=== PATIENT | male | born 1960 | race Caucasian/White ===

== ENCOUNTER 2017-12-17 17:06 | Emergency (ER) | payer OTHER ==
[2017-12-17] MEDS ORDERED: IBUPROFEN 400 MG TAB ONE (18:22)
[2017-12-17] MEDS ORDERED: ACETAMINOPHEN 500 MG TAB ONE (18:33)
--- NOTE | 2017-12-17 19:25 | ER ---
Nurse's Notes [facility] Name: Byron Albetro Jr Age: 57 yrs Sex: Male : 1960 Arrival Date: 12/17/2017 Time: 17:11 Bed 12 Private MD: Diagnosis: Cellulitis of toe-Left Third Presentation: 12/17 17:30 Presenting complaint: Patient states: Nail infection/fungus on left 3rd toe that aj started 2 months ago. Transition of care: patient was not received from another setting of care. Onset of symptoms was October 2017. Initial Sepsis Screen: Does the patient meet any 2 criteria? No. Patient's initial sepsis screen is negative. Does the patient have a suspected source of infection? No. Patient's initial sepsis screen is negative. Care prior to arrival: None. 17:30 Method Of Arrival: Ambulatory aj 17:30 Acuity: RENNY 3 aj Triage Assessment: 17:33 General: Appears in no apparent distress. comfortable, Behavior is calm, cooperative, aj appropriate for age. Pain: Complains of pain in left third toe and Left third toenail. Neuro: Level of Consciousness is awake, alert, obeys commands, Oriented to person, place, time, situation, Appropriate for age. Respiratory: Airway is patent Respiratory effort is even, unlabored, Respiratory pattern is regular, symmetrical. Derm: Skin is intact, is healthy with good turgor, Skin is pink, warm \T\ dry. normal, Wound noted left third toe and Left third toenail. Historical: - Allergies: 17:33 No Known Allergies; aj - Home Meds: 17:33 Klonopin Oral [Active]; Zoloft Oral [Active]; odesfey [Active]; Promethazine Oral aj [Active]; Propranolol Oral [Active]; Remeron Oral [Active]; Tylenol-Codeine #4 300-60 mg Oral tab 1 tab every 4 hours [Active]; - PMHx: 17:33 HIV; aj - PSHx: 17:33 None; aj - Immunization history:: Adult Immunizations up to date. - Social history:: Smoking status: Patient uses tobacco products, smokes one-half pack cigarettes per day. Screenin:53 Abuse screen: Denies threats or abuse. Denies injuries from another. Nutritional ed1 screening: No deficits noted. Tuberculosis screening: No symptoms or risk factors identified. Fall Risk None identified. Assessment: 17:53 General: Appears in no apparent distress. Behavior is calm, cooperative. Pain: ed1 Complains of pain in left third toe Pain radiates to left foot Pain currently is 6 out of 10 on a pain scale. Quality of pain is described as aching, Pain began 2 months ago Is continuous. Neuro: Level of Consciousness is awake, alert, obeys commands, Oriented to person, place, time, situation. Cardiovascular: Denies chest pain, Heart tones S1 S2 present. Respiratory: Airway is patent Trachea midline Respiratory effort is even, unlabored, Respiratory pattern is regular, symmetrical, Breath sounds are clear bilaterally. GI: No signs and/or symptoms were reported involving the gastrointestinal system. : No signs and/or symptoms were reported regarding the genitourinary system. EENT: No signs and/or symptoms were reported regarding the EENT system. Derm: Skin is intact, is healthy with good turgor, Skin is dry, Skin is normal, Skin temperature is warm Reports fungus to left 3rd toenail. Musculoskeletal: Circulation, motion, and sensation intact. 17:53 Reassessment: I agree with assessment completed by TERRIE Hodge . aa5 19:01 Reassessment: Patient appears in no apparent distress at this time. No changes from ed1 previously documented assessment. Patient and/or family updated on plan of care and expected duration. Pain level reassessed. Patient is alert, oriented x 3, equal unlabored respirations, skin warm/dry/pink. Patient states symptoms have not improved. Vital Signs: 17:33 BP 126 / 77; Pulse 79; Resp 16; Temp 97.9; Pulse Ox 99% on R/A; Weight 72.57 kg; Height aj 5 ft. 3 in. (160.02 cm); 19:01 BP 122 / 74; Pulse 76; Resp 17; Temp 97.6(O); Pulse Ox 99% on R/A; Pain 7/10; ed1 17:33 Body Mass Index 28.34 (72.57 kg, 160.02 cm) aj ED Course: 17:11 Patient arrived in ED. sb2 17:31 Triage completed. aj 17:33 Arm band placed on left wrist. Patient placed in waiting room, Patient notified of wait aj time. 17:51 Ayesha Moreno LVN is Primary Nurse. ed1 17:53 Patient has correct armband on for positive identification. Call light in reach. ed1 17:55 Ronald Chang PA is PHCP. cp 17:55 Ronald Gramajo MD is Attending Physician. cp 19:01 X-ray completed. Portable x-ray completed in exam room. Patient tolerated procedure kp1 well. 19:01 Resting quietly. Awaiting radiology results. ed1 19:03 XRAY Foot LEFT 3 View In Process Unspecified. EDMS 19:35 No provider procedures requiring assistance completed. Patient did not have IV access ed1 during this emergency room visit. Ortho shoe applied to left foot. Administered Medications: 18:31 Not Given (Patient Refused; Pt requests Tylenol): Ibuprofen 800 mg PO once ed1 18:38 Drug: Tylenol 1000 mg Route: PO; ed1 19:39 Follow up: Response: No adverse reaction; Pain is decreased ed1 Outcome: 19:25 Discharge ordered by MD. cp 19:35 Discharged to home ambulatory. ed1 19:35 Condition: good 19:35 Discharge instructions given to patient, Instructed on discharge instructions, follow up and referral plans. medication usage, Demonstrated understanding of instructions, follow-up care, medications, Prescriptions given X 2. 19:39 Patient left the ED. ed1 Signatures: Dispatcher [employer] EDMS Kelli Clarke RN RN Olesya Johnston RN RN Ayesha Benitez LVN LVN ed1 Ronald Chang PA PA cp Poole, Kathy kp1 Natalie Valentin sb2
--- NOTE | 2017-12-17 19:26 | EDPHYS ---
Physician Documentation [facility] Name: Byron Alberto Jr Age: 57 yrs Sex: Male : 1960 Arrival Date: 12/17/2017 Time: 17:11 Bed 12 Private MD: ED Physician Ronald Gramajo HPI: 12/17 18:10 This 57 yrs old Male presents to ER via Ambulatory with complaints of TOE cp INFECTION. 18:10 The patient presents with pain, that is acute, swelling, tenderness. The complaints cp affect the left third toe. 18:10 Context: denies injury, reports history of nail fungal infection of left third toe cp times 2 months. Associated signs and symptoms: Pertinent positives: swelling, warmth, Pertinent negatives: calf tenderness, fever. Historical: - Allergies: 17:33 No Known Allergies; aj - Home Meds: 17:33 Klonopin Oral [Active]; Zoloft Oral [Active]; odesfey [Active]; Promethazine Oral aj [Active]; Propranolol Oral [Active]; Remeron Oral [Active]; Tylenol-Codeine #4 300-60 mg Oral tab 1 tab every 4 hours [Active]; - PMHx: 17:33 HIV; aj - PSHx: 17:33 None; aj - Immunization history:: Adult Immunizations up to date. - Social history:: Smoking status: Patient uses tobacco products, smokes one-half pack cigarettes per day. ROS: 18:15 Constitutional: Negative for body aches, chills, fever, poor PO intake. cp 18:15 Eyes: Negative for injury, pain, redness, and discharge. cp 18:15 Cardiovascular: Negative for chest pain, edema. 18:15 Respiratory: Negative for cough, shortness of breath, wheezing. 18:15 Abdomen/GI: Negative for abdominal pain, vomiting, diarrhea, constipation. 18:15 MS/extremity: Positive for pain, swelling, tenderness, of the left third toe, Negative for injury or acute deformity, paresthesias. 18:15 Skin: Negative for laceration(s). 18:15 All other systems are negative. Exam: 18:20 Constitutional: The patient appears in no acute distress, alert, awake, non-toxic, well cp developed, well nourished. 18:20 Head/face: Exam is negative for obvious evidence of injury or deformity. cp 18:20 Eyes: Periorbital structures: appear normal, Conjunctiva: normal, no exudate, no injection, Lids and lashes: appear normal, bilaterally. 18:20 ENT: External ear(s): are unremarkable, Nose: is normal, Mouth: is normal. 18:20 Chest/axilla: Inspection: normal. 18:20 Cardiovascular: Rate: normal. 18:20 Respiratory: the patient does not display signs of respiratory distress, Respirations: normal, no use of accessory muscles, no retractions, no splinting, no tachypnea, labored breathing, is not present. 18:20 Skin: cellulitis, that is mild, on the left third toe, mild erythema, skin warm to touch, noted mild swelling. Vital Signs: 17:33 BP 126 / 77; Pulse 79; Resp 16; Temp 97.9; Pulse Ox 99% on R/A; Weight 72.57 kg; Height aj 5 ft. 3 in. (160.02 cm); 19:01 BP 122 / 74; Pulse 76; Resp 17; Temp 97.6(O); Pulse Ox 99% on R/A; Pain 7/10; ed1 17:33 Body Mass Index 28.34 (72.57 kg, 160.02 cm) aj MDM: 17:56 Patient medically screened. cp 19:00 Differential diagnosis: fracture, sprain, cellulitis, osteomyelitis. cp 19:24 Data reviewed: vital signs, nurses notes, radiologic studies, plain films, and as a cp result, I will discharge patient. 19:25 Counseling: I had a detailed discussion with the patient and/or guardian regarding: the cp historical points, exam findings, and any diagnostic results supporting the discharge/admit diagnosis, radiology results, the need for outpatient follow up, a family practitioner, to return to the emergency department if symptoms worsen or persist or if there are any questions or concerns that arise at home. 12/17 18:10 Order name: XRAY Foot LEFT 3 View; Complete Time: 19:30 cp 12/17 19:31 Interpretation: Reviewed report. cp 12/17 19:18 Order name: Post-op shoe; Complete Time: 19:29 cp Administered Medications: 18:31 Not Given (Patient Refused; Pt requests Tylenol): Ibuprofen 800 mg PO once ed1 18:38 Drug: Tylenol 1000 mg Route: PO; ed1 19:39 Follow up: Response: No adverse reaction; Pain is decreased ed1 Disposition: 20:00 Chart complete. cp 12/18 10:52 Co-signature as Attending Physician, Ronald Gramajo MD I agree with the assessment and [facility] plan of care. Disposition: 12/17/17 19:25 Discharged to Home. Impression: Cellulitis of toe - Left Third. - Condition is Stable. - Discharge Instructions: Cellulitis. - Prescriptions for Ibuprofen 800 mg Oral Tablet - take 1 tablet by ORAL route every 8 hours As needed take with food; 30 tablet. Keflex 500 mg Oral Capsule - take 1 capsule by ORAL route every 6 hours for 10 days; 40 capsule. - Medication Reconciliation Form, Thank You Letter, Antibiotic Education, Prescription Opioid Use form. - Follow up: Private Physician; When: 48 Hours; Reason: Recheck today's complaints. - Problem is new. - Symptoms are unchanged. Signatures: Dispatcher [employer] EDCA Kelli Clarke RN RN aj Anderson, Corey, MD MD cha Riggs, Erika, E COMMERCE STRATEGIST E COMMERCE STRATEGIST ed1 Ronald Chang PA TOREY bucio Corrections: (The following items were deleted from the chart) 12/17 19:39 19:25 12/17/2017 19:25 Discharged to Home. Impression: Cellulitis of toe - Left Third. ed1 Condition is Stable. Forms are Medication Reconciliation Form, Thank You Letter, Antibiotic Education, Prescription Opioid Use. Follow up: Private Physician; When: 48 Hours; Reason: Recheck today's complaints. Problem is new. Symptoms are unchanged. cp
--- NOTE | 2017-12-17 19:29 | RAD REPORT ---
EXAM DESCRIPTION: RAD - Foot Left 3 View - 12/17/2017 7:03 pm CLINICAL HISTORY: Pain, foot infection COMPARISON: None. FINDINGS: Soft tissue swelling is seen affecting the third toe. No fracture, dislocation or evidence of underlying osteomyelitis seen.
== END 2017-12-17 19:39 | disposition home or self-care (01) ==
LOC: ER 17:06
DX: L03.032 Cellulitis of left toe (principal); F17.210 Nicotine dependence, cigarettes, uncomplicated
CPT/HCPCS: 99284

== ENCOUNTER 2018-10-09 10:46 | Emergency (ER) | payer OTHER ==
--- NOTE | 2018-10-09 11:49 | EDPHYS ---
Physician Documentation [facility] Name: Byron Alberto Jr Age: 58 yrs Sex: Male : 1960 Arrival Date: 10/09/2018 Time: 10:50 Bed 18 Private MD: None, None ED Physician Nick Christiansen HPI: 10/09 11:40 This 58 yrs old Male presents to ER via Ambulatory with complaints of Abscess.pm1 11:40 The patient presents with pain, swelling. The problem is located in the upper left pm1 first molar. Onset: The symptoms/episode began/occurred 2 day(s) ago. Duration: The symptoms are continuous. Modifying factors: The symptoms are alleviated by nothing, the symptoms are aggravated by food. Associated signs and symptoms: Pertinent negatives: chills, dysphagia, fever, inability to eat, vomiting. Severity of symptoms: in the emergency department the symptoms are actually worse. onset of swelling to left cheek today. Historical: - Allergies: 11:05 No Known Allergies; aa5 - PMHx: 11:05 HIV; Tremors; aa5 - PSHx: 11:05 None; aa5 - Immunization history:: Flu vaccine is not up to date. - Social history:: Smoking status: Patient uses tobacco products, smokes one-half pack cigarettes per day. - Ebola Screening: : No symptoms or risks identified at this time. ROS: 11:40 Constitutional: Negative for fever, chills, and weight loss, Eyes: Negative for injury, pm1 pain, redness, and discharge. 11:40 Neck: Negative for injury, pain, and swelling, Cardiovascular: Negative for chest pain, palpitations, and edema, Respiratory: Negative for shortness of breath, cough, wheezing, and pleuritic chest pain, Abdomen/GI: Negative for abdominal pain, nausea, vomiting, diarrhea, and constipation, Back: Negative for injury and pain, : Negative for injury, bleeding, discharge, and swelling, MS/Extremity: Negative for injury and deformity, Skin: Negative for injury, rash, and discoloration, Neuro: Negative for headache, weakness, numbness, tingling, and seizure. 11:40 ENT: Positive for dental pain, Negative for drainage from ear(s), ear pain, sore throat, difficulty swallowing, difficulty handling secretions. Exam: 11:40 Constitutional: This is a well developed, well nourished patient who is awake, alert, pm1 and in no acute distress. Head/Face: Normocephalic, atraumatic. Eyes: Pupils equal round and reactive to light, extra-ocular motions intact. Lids and lashes normal. Conjunctiva and sclera are non-icteric and not injected. Cornea within normal limits. Periorbital areas with no swelling, redness, or edema. 11:40 Neck: Trachea midline, no thyromegaly or masses palpated, and no cervical lymphadenopathy. Supple, full range of motion without nuchal rigidity, or vertebral point tenderness. No Meningismus. Chest/axilla: Normal chest wall appearance and motion. Nontender with no deformity. No lesions are appreciated. Cardiovascular: Regular rate and rhythm with a normal S1 and S2. No gallops, murmurs, or rubs. Normal PMI, no JVD. No pulse deficits. Respiratory: Lungs have equal breath sounds bilaterally, clear to auscultation and percussion. No rales, rhonchi or wheezes noted. No increased work of breathing, no retractions or nasal flaring. Abdomen/GI: Soft, non-tender, with normal bowel sounds. No distension or tympany. No guarding or rebound. No evidence of tenderness throughout. Back: No spinal tenderness. No costovertebral tenderness. Full range of motion. Skin: Warm, dry with normal turgor. Normal color with no rashes, no lesions, and no evidence of cellulitis. MS/ Extremity: Pulses equal, no cyanosis. Neurovascular intact. Full, normal range of motion. 11:40 ENT: External ear(s): are unremarkable, Ear canal(s): are normal, TM's: are normal, Nose: is normal, Mouth: is normal, no abscess, no drooling, no injury, no laceration, (-) tongue elevation (-) trismus no ulcerations, Dental exam: dental caries, that is severe, diffusely, gum swelling, that is mild, specifically in the upper left first molar (#14). 11:40 Neuro: Orientation: is normal, Motor: is normal, moves all fours. Vital Signs: 11:06 BP 141 / 89; Pulse 79; Resp 16 S; Temp 98.5(O); Pulse Ox 97% on R/A; Weight 63.05 kg aa5 (R); Height 5 ft. 0 in. (152.40 cm) (R); Pain 9/10; 12:38 BP 137 / 75; Pulse 75; Resp 16; Pulse Ox 98% ; bp 11:06 Body Mass Index 27.15 (63.05 kg, 152.40 cm) aa5 MDM: 11:17 Patient medically screened. pm1 11:48 Data reviewed: vital signs. Data interpreted: Pulse oximetry: on room air is 97 %. pm1 Interpretation: normal. Counseling: I had a detailed discussion with the patient and/or guardian regarding: the historical points, exam findings, and any diagnostic results supporting the discharge/admit diagnosis, the need for outpatient follow up, for definitive care, a dentist, to return to the emergency department if symptoms worsen or persist or if there are any questions or concerns that arise at home. Administered Medications: 11:40 Drug: [place] 10 mg-325 mg 1 tabs Route: PO; bp 12:19 Follow up: Response: Pain is decreased bp 11:45 Drug: Clindamycin 600 mg Route: IM; Site: right gluteus; bp 12:30 Follow up: Response: No adverse reaction bp Disposition: 17:53 Co-signature as Attending Physician, Nick Christiansen MD. ma2 Disposition: 10/09/18 11:49 Discharged to Home. Impression: Periapical abscess without sinus. - Condition is Stable. - Discharge Instructions: Dental Abscess, Dental Pain. - Prescriptions for Clindamycin HCl 300 mg Oral Capsule - take 1 capsule by ORAL route every 6 hours for 10 days; 40 capsule. Tylenol- Codeine #3 300-30 mg Oral Tablet - take 2 tablets by ORAL route every 6 hours As needed; 20 tablet. - Medication Reconciliation Form, Thank You Letter, Antibiotic Education, Prescription Opioid Use form. - Follow up: Emergency Department; When: As needed; Reason: Worsening of condition. Follow up: Private Physician; When: 2 - 3 days; Reason: Recheck today's complaints, Continuance of care, Re-evaluation by your physician. - Problem is new. - Symptoms have improved. Signatures: Olesya Bates RN RN aa5 Bryce Valero, SEVEN MEASUREMENT SUPERINTENDENT pm1 Kushal Gallegos RN RN bp Nick Christiansen MD MD ma2 Corrections: (The following items were deleted from the chart) 12:39 11:49 10/09/2018 11:49 Discharged to Home. Impression: Periapical abscess without bp sinus. Condition is Stable. Forms are Medication Reconciliation Form, Thank You Letter, Antibiotic Education, Prescription Opioid Use. Follow up: Emergency Department; When: As needed; Reason: Worsening of condition. Follow up: Private Physician; When: 2 - 3 days; Reason: Recheck today's complaints, Continuance of care, Re-evaluation by your physician. Problem is new. Symptoms have improved. pm1
--- NOTE | 2018-10-09 11:49 | ER ---
Nurse's Notes [facility] Name: Byron Alberto Jr Age: 58 yrs Sex: Male : 1960 Arrival Date: 10/09/2018 Time: 10:50 Bed 18 Private MD: None, None Diagnosis: Periapical abscess without sinus Presentation: 10/09 11:03 Presenting complaint: Patient states: "I think I have an abscess in my sinus". Pt c/o aa5 swelling to left cheek that began on . Pt reports "I've been taking Bactrim prophylactically since September 22". Pt also reports diarrhea since yesterday. Transition of care: patient was not received from another setting of care. Onset of symptoms was October 07, 2018. Risk Assessment: Do you want to hurt yourself or someone else? Patient reports no desire to harm self or others. Care prior to arrival: None. 11:03 Method Of Arrival: Ambulatory aa5 11:03 Acuity: RENNY 3 aa5 12:39 Initial Sepsis Screen: Does the patient meet any 2 criteria? No. Patient's initial bp sepsis screen is negative. Does the patient have a suspected source of infection? No. Patient's initial sepsis screen is negative. Triage Assessment: 11:05 General: Appears in no apparent distress. uncomfortable, Behavior is calm, cooperative, bp appropriate for age. Historical: - Allergies: 11:05 No Known Allergies; aa5 - PMHx: 11:05 HIV; Tremors; aa5 - PSHx: 11:05 None; aa5 - Immunization history:: Flu vaccine is not up to date. - Social history:: Smoking status: Patient uses tobacco products, smokes one-half pack cigarettes per day. - Ebola Screening: : No symptoms or risks identified at this time. Screenin:14 Abuse screen: Denies threats or abuse. Denies injuries from another. Nutritional bp screening: No deficits noted. Tuberculosis screening: No symptoms or risk factors identified. Fall Risk None identified. Assessment: 11:11 General: Appears in no apparent distress. comfortable, Behavior is calm, cooperative, bp appropriate for age. Pain: Complains of pain in left cheek. Neuro: Level of Consciousness is awake, alert, obeys commands, Oriented to person, place, time, situation, Appropriate for age. Cardiovascular: No deficits noted. Respiratory: Airway is patent Respiratory effort is even, unlabored, Respiratory pattern is regular, symmetrical. GI: No signs and/or symptoms were reported involving the gastrointestinal system. : No signs and/or symptoms were reported regarding the genitourinary system. EENT: No deficits noted. Derm: No signs and/or symptoms reported regarding the dermatologic system. Parent/caregiver reports the patient having. Musculoskeletal: Circulation, motion, and sensation intact. Range of motion: intact in all extremities. 12:37 Reassessment: PT D/C HOME AMBULATORY, DX WITH PERIAPICAL ABSCESS. bp Vital Signs: 11:06 BP 141 / 89; Pulse 79; Resp 16 S; Temp 98.5(O); Pulse Ox 97% on R/A; Weight 63.05 kg aa5 (R); Height 5 ft. 0 in. (152.40 cm) (R); Pain 9/10; 12:38 BP 137 / 75; Pulse 75; Resp 16; Pulse Ox 98% ; bp 11:06 Body Mass Index 27.15 (63.05 kg, 152.40 cm) aa5 ED Course: 10:50 Patient arrived in ED. mr 10:50 None, None is Private Physician. mr 11:03 Arm band placed on. aa5 11:05 Triage completed. aa5 11:10 Kushal Gallegos, RN is Primary Nurse. bp 11:14 Patient has correct armband on for positive identification. Bed in low position. Call bp light in reach. Side rails up X2. 11:15 Bryce Valero NAILHEAD PUNCHER is PHCP. pm1 11:15 Nick Christiansen MD is Attending Physician. pm1 12:21 No provider procedures requiring assistance completed. Patient did not have IV access bp during this emergency room visit. Administered Medications: 11:40 Drug: [place] 10 mg-325 mg 1 tabs Route: PO; bp 12:19 Follow up: Response: Pain is decreased bp 11:45 Drug: Clindamycin 600 mg Route: IM; Site: right gluteus; bp 12:30 Follow up: Response: No adverse reaction bp Outcome: 11:49 Discharge ordered by . pm1 12:38 Discharged to home ambulatory. bp 12:38 Condition: stable 12:38 Discharge instructions given to patient, Instructed on discharge instructions, follow up and referral plans. medication usage, Demonstrated understanding of instructions, follow-up care, medications, Prescriptions given X 2. 12:39 Patient left the ED. bp Signatures: Goivanna RodderOlesya ferguson, RN RN aa5 Bryce Valero, SEVEN NAILHEAD PUNCHER pm1 Kushal Gallegos RN RN bp
[2018-10-09] MEDS ORDERED: HYDROCODONE/APAP 10/325 TAB ONE (11:57)
[2018-10-09] MEDS ORDERED: CLINDAMYCIN 900MG/D5W 900 MG/50 ML IVPB IV ONE (11:58)
[2018-10-09] MEDS ORDERED: CLINDAMYCIN IV 150 MG/ML (4 mL) VIAL ONE (12:23)
== END 2018-10-09 12:39 | disposition home or self-care (01) ==
LOC: ER 10:46
DX: K04.7 Periapical abscess without sinus (principal); F17.210 Nicotine dependence, cigarettes, uncomplicated; Z21 Asymptomatic human immunodeficiency virus [HIV] infection status
CPT/HCPCS: 96372; 99283; S0077

== ENCOUNTER 2018-12-27 08:39 | Emergency (ER) | payer OTHER ==
--- NOTE | 2018-12-27 09:04 | EDPHYS ---
Physician Documentation [facility] Name: Byron Alberto Jr Age: 58 yrs Sex: Male : 1960 Arrival Date: 12/27/2018 Time: 08:41 Bed 14 Private MD: ED Physician Romeo Nation HPI: 12/27 09:00 This 58 yrs old Male presents to ER via Ambulatory with complaints of Abscess.jr8 09:00 The patient presents with pain, swelling. The problem is located in the mouth. Onset: jr8 The symptoms/episode began/occurred gradually, 5 day(s) ago. Duration: The symptoms are continuous. Modifying factors: The symptoms are alleviated by nothing, the symptoms are aggravated by air, chewing. Associated signs and symptoms: The patient has no apparent associated signs or symptoms. Severity of symptoms: At their worst the symptoms were moderate, in the emergency department the symptoms are unchanged. The patient has experienced similar episodes in the past, a few times. The patient has not recently seen a physician. Stated that he saw a dentist for bad dentition about a week ago. Need to be cleared by PCP which he has appointment this week to be cleared since he has HIV. After clearance, is scheduled for teeth extraction by dentist. Stated that for the past 5 days he has had increase in pain. Has been doing what he can to control pain with OTC medications . Historical: - Allergies: 08:45 No Known Allergies; aa5 - PMHx: 08:45 HIV; tremors; aa5 - PSHx: 08:45 None; aa5 - Social history:: Smoking status: Patient uses tobacco products, smokes one-half pack cigarettes per day. - Ebola Screening: : No symptoms or risks identified at this time. ROS: 09:00 Constitutional: Negative for fever, chills, and weight loss. jr8 09:00 ENT: Positive for dental pain, Gum pain 09:00 All other systems are negative. Exam: 09:00 Constitutional: This is a well developed, well nourished patient who is awake, alert, jr8 and in no acute distress. Eyes: Pupils equal round and reactive to light, extra-ocular motions intact. Lids and lashes normal. Conjunctiva and sclera are non-icteric and not injected. Cornea within normal limits. Periorbital areas with no swelling, redness, or edema. Neck: Trachea midline, no thyromegaly or masses palpated, and no cervical lymphadenopathy. Supple, full range of motion without nuchal rigidity, or vertebral point tenderness. No Meningismus. Cardiovascular: Regular rate and rhythm with a normal S1 and S2. No gallops, murmurs, or rubs. Normal PMI, no JVD. No pulse deficits. Respiratory: Lungs have equal breath sounds bilaterally, clear to auscultation and percussion. No rales, rhonchi or wheezes noted. No increased work of breathing, no retractions or nasal flaring. Abdomen/GI: Soft, non-tender, with normal bowel sounds. No distension or tympany. No guarding or rebound. No evidence of tenderness throughout. Back: No spinal tenderness. No costovertebral tenderness. Full range of motion. Skin: Warm, dry with normal turgor. Normal color with no rashes, no lesions, and no evidence of cellulitis. MS/ Extremity: Pulses equal, no cyanosis. Neurovascular intact. Full, normal range of motion. Neuro: Awake and alert, GCS 15, oriented to person, place, time, and situation. Cranial nerves II-XII grossly intact. Motor strength 5/5 in all extremities. Sensory grossly intact. Cerebellar exam normal. Normal gait. 09:00 ENT: Exam is negative for earache, TM abnormalities, nasal discharge, pharyngitis, exudate, Dental exam: abscess, is not appreciated, dental caries, that is moderate, diffusely, fractured teeth are noted, diffusely, gum swelling, that is mild, specifically in the lower right first molar (#30) and lower right second molar (#31), pain, that is moderate, specifically in the lower right first molar (#30) and lower right second molar (#31). Vital Signs: 08:46 BP 120 / 84; Pulse 77; Resp 16 S; Temp 98.0(TE); Pulse Ox 98% on R/A; Weight 63.5 kg aa5 (R); Height 5 ft. 0 in. (152.40 cm) (R); Pain 10/10; 09:10 BP 112 / 78; Pulse 74; Resp 16 S; Pulse Ox 98% on R/A; aa5 08:46 Body Mass Index 27.34 (63.50 kg, 152.40 cm) aa5 MDM: 08:47 Patient medically screened. jr8 09:00 Data reviewed: vital signs, nurses notes, and as a result, I will discharge patient. jr8 Data interpreted: Pulse oximetry: on room air is 98 %. Interpretation: normal. Counseling: I had a detailed discussion with the patient and/or guardian regarding: the historical points, exam findings, and any diagnostic results supporting the discharge/admit diagnosis, the need for outpatient follow up, a family practitioner, to return to the emergency department if symptoms worsen or persist or if there are any questions or concerns that arise at home. Administered Medications: No medications were administered Disposition: 10:13 Co-signature as Attending Physician, Romeo Nation MD. rn Disposition: 12/27/18 09:04 Discharged to Home. Impression: Periapical abscess without sinus. - Condition is Stable. - Discharge Instructions: Dental Abscess, Dental Pain. - Prescriptions for Clindamycin HCl 300 mg Oral Capsule - take 1 capsule by ORAL route every 6 hours for 10 days; 40 capsule. Ibuprofen 800 mg Oral Tablet - take 1 tablet by ORAL route every 12 hours As needed take with food; 20 tablet. Tylenol- Codeine #3 300-30 mg Oral Tablet - take 2 tablets by ORAL route every 6 hours As needed; 12 tablet. - Medication Reconciliation Form, Thank You Letter, Antibiotic Education, Prescription Opioid Use form. - Follow up: Private Physician; When: 1 week; Reason: Recheck today's complaints, Continuance of care, Re-evaluation by your physician. - Problem is new. - Symptoms have improved. Signatures: Romeo Nation MD MD rn Calderon, Audri RN RN aa5 Bunny Powers PA PA jr8 Corrections: (The following items were deleted from the chart) 09:15 09:04 12/27/2018 09:04 Discharged to Home. Impression: Periapical abscess without aa5 sinus. Condition is Stable. Forms are Medication Reconciliation Form, Thank You Letter, Antibiotic Education, Prescription Opioid Use. Follow up: Private Physician; When: 1 week; Reason: Recheck today's complaints, Continuance of care, Re-evaluation by your physician. Problem is new. Symptoms have improved. jr8
--- NOTE | 2018-12-27 09:04 | ER ---
Nurse's Notes [facility] Name: Byron Alberto Jr Age: 58 yrs Sex: Male : 1960 Arrival Date: 12/27/2018 Time: 08:41 Bed 14 Private MD: Diagnosis: Periapical abscess without sinus Presentation: 12/27 08:45 Presenting complaint: Patient states: "I've been dealing with teeth abscesses since aa5 back in October and first it was on my left lower side and since the beginning of December it's been my right lower side and the doctor said it wasn't an abscess yet on my right side and gave me Penicillin but I finished it on December 23". Pt states "I really can't eat much or sleep much because of the pain". Pt states "I have another appointment with the dentist but it's not until January 10". Pt states "I also take Bactrim prophylactically". 08:45 Transition of care: patient was not received from another setting of care. Onset of aa5 symptoms was 2018. Risk Assessment: Do you want to hurt yourself or someone else? Patient reports no desire to harm self or others. Initial Sepsis Screen: Does the patient meet any 2 criteria? No. Patient's initial sepsis screen is negative. Does the patient have a suspected source of infection? No. Patient's initial sepsis screen is negative. Care prior to arrival: None. 08:45 Acuity: RENNY 3 aa5 08:45 Method Of Arrival: Ambulatory aa5 Historical: - Allergies: 08:45 No Known Allergies; aa5 - PMHx: 08:45 HIV; tremors; aa5 - PSHx: 08:45 None; aa5 - Social history:: Smoking status: Patient uses tobacco products, smokes one-half pack cigarettes per day. - Ebola Screening: : No symptoms or risks identified at this time. Screenin:50 Abuse screen: Denies threats or abuse. Nutritional screening: No deficits noted. aa5 Tuberculosis screening: No symptoms or risk factors identified. Fall Risk Ambulatory Aid- Crutches/Cane/Walker (15 pts). Total Lara Fall Scale indicates No Risk (0-24 pts). Assessment: 08:47 General: Appears comfortable, Behavior is calm, cooperative. Pain: Complains of pain in aa5 right lower teeth Pain does not radiate. Pain currently is 10 out of 10 on a pain scale. Quality of pain is described as sharp, throbbing, Is continuous, Aggravated by eating. Neuro: Level of Consciousness is awake, alert, obeys commands, Oriented to person, place, time, situation. Cardiovascular: Patient's skin is warm and dry. Respiratory: Airway is patent Respiratory effort is even, unlabored, Respiratory pattern is regular, symmetrical. GI: No signs and/or symptoms were reported involving the gastrointestinal system. : No signs and/or symptoms were reported regarding the genitourinary system. EENT: Reports pain to right lower teeth. Pt states "I have really poor teeth and they always give me trouble" . Derm: Skin is pink, warm \\T\\ dry. Musculoskeletal: Pt is ambulatory with cane. 09:12 Reassessment: Patient is alert, oriented x 3, equal unlabored respirations, skin aa5 warm/dry/pink. Vital Signs: 08:46 BP 120 / 84; Pulse 77; Resp 16 S; Temp 98.0(TE); Pulse Ox 98% on R/A; Weight 63.5 kg aa5 (R); Height 5 ft. 0 in. (152.40 cm) (R); Pain 10/10; 09:10 BP 112 / 78; Pulse 74; Resp 16 S; Pulse Ox 98% on R/A; aa5 08:46 Body Mass Index 27.34 (63.50 kg, 152.40 cm) aa5 ED Course: 08:41 Patient arrived in ED. as 08:45 Arm band placed on Patient placed in an exam room, on a stretcher. aa5 08:45 Patient has correct armband on for positive identification. Bed in low position. Call aa5 light in reach. Side rails up X 1. 08:46 [facility] Powers [facility] jr8 08:46 Romeo Nation MD is Attending Physician. jr8 08:56 Olesya Bates, BAKARI is Primary Nurse. aa5 08:59 Triage completed. aa5 09:12 No provider procedures requiring assistance completed. Patient did not have IV access aa5 during this emergency room visit. Administered Medications: No medications were administered Outcome: 09:04 Discharge ordered by . jr8 09:12 Discharged to home ambulatory. aa5 09:12 Condition: stable 09:12 Discharge instructions given to patient, Instructed on discharge instructions, follow up and referral plans. medication usage, Demonstrated understanding of instructions, follow-up care, medications, Prescriptions given X 3. 09:15 Patient left the ED. aa5 Signatures: Jovana Cedeno Audri RN RN aa5 Bunny Powers PA PA jr8 Corrections: (The following items were deleted from the chart) 09:00 08:45 Presenting complaint: Patient states: "I've been dealing with teeth abscesses aa5 since back in October and first it was on my left lower side and since the beginning of December it's been my right lower side and the doctor said it wasn't an abscess yet on my right side and gave me Penicillin but I finished it on December 23". Pt states "I really can't eat much or sleep much because of the pain". Pt states "I have another appointment with the dentist but it's not until January 10" aa5
== END 2018-12-27 09:15 | disposition home or self-care (01) ==
LOC: ER 08:39
DX: K04.7 Periapical abscess without sinus (principal); F17.210 Nicotine dependence, cigarettes, uncomplicated
CPT/HCPCS: 99282

== ENCOUNTER 2019-04-04 08:03 | Emergency (ER) | payer OTHER ==
[2019-04-04] MEDS ORDERED: CLINDAMYCIN HCL 150 MG CAP ONE (08:28)
--- NOTE | 2019-04-04 08:31 | ER ---
Nurse's Notes [facility] Name: Byron Alberto Jr Age: 58 yrs Sex: Male : 1960 Arrival Date: 04/04/2019 Time: 08:06 Bed 8 Private MD: Diagnosis: Periapical abscess without sinus Presentation: 04/04 08:22 Presenting complaint: Patient states: tooth abscess to right lower molar, pain since iw Thursday. Transition of care: patient was not received from another setting of care. Onset of symptoms was April 02, 2019. Risk Assessment: Do you want to hurt yourself or someone else? Patient reports no desire to harm self or others. Initial Sepsis Screen: Does the patient meet any 2 criteria? No. Patient's initial sepsis screen is negative. Does the patient have a suspected source of infection? No. Patient's initial sepsis screen is negative. Care prior to arrival: None. 08:22 Method Of Arrival: Ambulatory iw 08:22 Acuity: RENNY 4 iw Historical: - Allergies: 08:25 No Known Allergies; iw - Home Meds: 08:25 Odefsey 200-25-25 mg oral tab 1 tab once daily [Active]; Propranolol Oral once daily iw [Active]; Promethazine Oral [Active]; Bactrim DS Oral once daily [Active]; Vistaril Oral [Active]; Flexeril Oral daily [Active]; Tylenol-Codeine #4 300-60 mg Oral tab 1 tab every 4 hours [Active]; 08:31 Zoloft Oral [Active]; Remeron Oral [Active]; Propranolol Oral [Active]; tw2 - PMHx: 08:25 AIDS; tremors; iw 08:31 HIV; tw2 - PSHx: 08:25 None; iw - Immunization history:: Adult Immunizations. - Social history:: Smoking status: . - Ebola Screening: : Patient denies travel to an Ebola-affected area in the 21 days before illness onset. Screenin:30 Abuse screen: Denies threats or abuse. Nutritional screening: No deficits noted. tw2 Tuberculosis screening: No symptoms or risk factors identified. Fall Risk None identified. Assessment: 08:31 General: Appears in no apparent distress. Behavior is calm, cooperative, appropriate tw2 for age. Pain: Complains of pain in lower right second bicuspid (#29) and mouth and lower right third molar. Neuro: Level of Consciousness is awake, alert, obeys commands, Oriented to person, place, time, situation. Cardiovascular: Patient's skin is warm and dry. Respiratory: Airway is patent Respiratory effort is even, unlabored, Respiratory pattern is regular, symmetrical. GI: No signs and/or symptoms were reported involving the gastrointestinal system. : No signs and/or symptoms were reported regarding the genitourinary system. EENT: No signs and/or symptoms were reported regarding the EENT system. Derm: No signs and/or symptoms reported regarding the dermatologic system. Musculoskeletal: Range of motion: intact in all extremities. Vital Signs: 08:25 BP 143 / 95; Pulse 127; Resp 18 S; Temp 97.8; Pulse Ox 98% on R/A; Weight 72.57 kg; iw Height 5 ft. 0 in. (152.40 cm); Pain 8/10; 08:36 BP 136 / 85; Pulse 99; Resp 18; Pulse Ox 100% on R/A; hj 08:25 Body Mass Index 31.25 (72.57 kg, 152.40 cm) iw ED Course: 08:06 Patient arrived in ED. mr 08:13 Stephanie Srinivasan FNP-C is [facility]. kb 08:13 Ronald Gramajo MD is Attending Physician. kb 08:13 Bed in low position. Call light in reach. tw2 08:23 Triage completed. iw 08:25 Arm band placed on. iw 08:30 Rosa Lam RN is Primary Nurse. tw2 08:35 No provider procedures requiring assistance completed. Patient did not have IV access hj during this emergency room visit. Administered Medications: 08:21 Drug: Clindamycin 300 mg Route: PO; hj 08:30 Follow up: Response: No adverse reaction hj Outcome: 08:31 Discharge ordered by . kb 08:35 Discharged to home ambulatory. hj 08:35 Condition: stable 08:35 Discharge instructions given to patient, Instructed on discharge instructions, follow up and referral plans. medication usage, Demonstrated understanding of instructions, follow-up care, medications, Prescriptions given X 2. 08:36 Patient left the ED. hj Signatures: Stephanie Srinivasan FNP-C FNP-Giovanna Dean mr Chanelle Martin RN RN Brayan Eller RN RN hj Rosa Lam RN RN tw2 Corrections: (The following items were deleted from the chart) :31 08:25 Home Meds: Zoloft Oral; tw2
--- NOTE | 2019-04-04 08:32 | EDPHYS ---
Physician Documentation [facility] Name: Byron Alberto Jr Age: 58 yrs Sex: Male : 1960 Arrival Date: 04/04/2019 Time: 08:06 Bed 8 Private MD: ED Physician Ronald Gramajo HPI: 04/04 08:24 This 58 yrs old Male presents to ER via Ambulatory with complaints of Abscess.kb 08:24 The patient has experienced similar episodes in the past, a few times. The patient has kb not recently seen a physician. 08:24 The patient presents with pain, redness, swelling. The problem is located in the lower kb right second bicuspid, lower right first molar, lower right second molar and lower right third molar. Onset: The symptoms/episode began/occurred 3 day(s) ago. Duration: The symptoms are continuous. Modifying factors: The symptoms are alleviated by nothing, the symptoms are aggravated by nothing. Associated signs and symptoms: Pertinent positives: pain, redness in area, swelling. Severity of symptoms: At their worst the symptoms were moderate, in the emergency department the symptoms are unchanged. "I have another abscess." Pt reports this is his third abscess attributed to poor dentition. Has seen a dentist for this and she was going to extract 2 teeth, but only give him ibuprofen for pain so he didn't have it done. . Historical: - Allergies: 08:25 No Known Allergies; iw - Home Meds: 08:25 Odefsey 200-25-25 mg oral tab 1 tab once daily [Active]; Propranolol Oral once daily iw [Active]; Promethazine Oral [Active]; Bactrim DS Oral once daily [Active]; Vistaril Oral [Active]; Flexeril Oral daily [Active]; Tylenol-Codeine #4 300-60 mg Oral tab 1 tab every 4 hours [Active]; 08:31 Zoloft Oral [Active]; Remeron Oral [Active]; Propranolol Oral [Active]; tw2 - PMHx: 08:25 AIDS; tremors; iw 08:31 HIV; tw2 - PSHx: 08:25 None; iw - Immunization history:: Adult Immunizations. - Social history:: Smoking status: . - Ebola Screening: : Patient denies travel to an Ebola-affected area in the 21 days before illness onset. ROS: 08:26 Constitutional: Negative for fever, chills, and weight loss, Cardiovascular: Negative kb for chest pain, palpitations, and edema, Respiratory: Negative for shortness of breath, cough, wheezing, and pleuritic chest pain, Abdomen/GI: Negative for abdominal pain, nausea, vomiting, diarrhea, and constipation, MS/Extremity: Negative for injury and deformity, Skin: Negative for injury, rash, and discoloration, Neuro: Negative for headache, weakness, numbness, tingling, and seizure. 08:26 ENT: Positive for dental pain. Exam: 08: Constitutional: This is a well developed, well nourished patient who is awake, alert, kb and in no acute distress. Head/Face: Normocephalic, atraumatic. Chest/axilla: Normal chest wall appearance and motion. Nontender with no deformity. No lesions are appreciated. Cardiovascular: Regular rate and rhythm with a normal S1 and S2. No gallops, murmurs, or rubs. Normal PMI, no JVD. No pulse deficits. Respiratory: Lungs have equal breath sounds bilaterally, clear to auscultation and percussion. No rales, rhonchi or wheezes noted. No increased work of breathing, no retractions or nasal flaring. Abdomen/GI: Soft, non-tender, with normal bowel sounds. No distension or tympany. No guarding or rebound. No evidence of tenderness throughout. Skin: Warm, dry with normal turgor. Normal color with no rashes, no lesions, and no evidence of cellulitis. MS/ Extremity: Pulses equal, no cyanosis. Neurovascular intact. Full, normal range of motion. Neuro: Awake and alert, GCS 15, oriented to person, place, time, and situation. Cranial nerves II-XII grossly intact. Motor strength 5/5 in all extremities. Sensory grossly intact. Cerebellar exam normal. Normal gait. 08:26 ENT: Dental exam: cellulitis, that is mild, specifically in the lower right second bicuspid (#29), lower right first molar (#30), lower right second molar (#31) and lower right third molar (#32), dental caries, gum swelling, missing teeth, pain. Vital Signs: 08:25 BP 143 / 95; Pulse 127; Resp 18 S; Temp 97.8; Pulse Ox 98% on R/A; Weight 72.57 kg; iw Height 5 ft. 0 in. (152.40 cm); Pain 8/10; 08:36 BP 136 / 85; Pulse 99; Resp 18; Pulse Ox 100% on R/A; hj 08:25 Body Mass Index 31.25 (72.57 kg, 152.40 cm) iw MDM: 08:14 Patient medically screened. kb 08:21 Data reviewed: vital signs, nurses notes. Data interpreted: Pulse oximetry: on room air kb is 100 %. Interpretation: normal. Counseling: I had a detailed discussion with the patient and/or guardian regarding: the historical points, exam findings, and any diagnostic results supporting the discharge/admit diagnosis, the need for outpatient follow up, a dentist, to return to the emergency department if symptoms worsen or persist or if there are any questions or concerns that arise at home. ED course: Reports he has had PCN and clindamycin in the past for dental abscesses and clindamycin works better. Administered Medications: 08:21 Drug: Clindamycin 300 mg Route: PO; hj 08:30 Follow up: Response: No adverse reaction Disposition: 04/04/19 08:31 Discharged to Home. Impression: Periapical abscess without sinus. - Condition is Stable. - Discharge Instructions: Dental Pain, [id number], Dental Abscess, [id number]. - Prescriptions for Clindamycin HCl 300 mg Oral Capsule - take 1 capsule by ORAL route every 6 hours for 10 days; 40 capsule. Tramadol 50 mg Oral Tablet - take 1 tablet by ORAL route every 8 hours as needed; 12 tablet. - Medication Reconciliation Form, Thank You Letter, Antibiotic Education, Prescription Opioid Use form. - Follow up: Emergency Department; When: As needed; Reason: Worsening of condition. Follow up: Private Physician; When: 2 - 3 days; Reason: Recheck today's complaints, Continuance of care, Re-evaluation by your physician. Addendum: 04/05/2019 20:30 Co-signature as Attending Physician, Ronald Gramajo MD I agree with the assessment and c oneal plan of care. Signatures: Stephanie Srinivasan, [employer]C [employer]-Ronald Garrett MD MD cha Williams, Irene RN RN Brayan Eller RN RN hj Wise, Tara RN RN tw2 Corrections: (The following items were deleted from the chart) 04/04 08: 08:25 Home Meds: Zoloft Oral; iw tw2 08:36 08:31 04/04/2019 08:31 Discharged to Home. Impression: Periapical abscess without hj sinus. Condition is Stable. Forms are Medication Reconciliation Form, Thank You Letter, Antibiotic Education, Prescription Opioid Use. Follow up: Emergency Department; When: As needed; Reason: Worsening of condition. Follow up: Private Physician; When: 2 - 3 days; Reason: Recheck today's complaints, Continuance of care, Re-evaluation by your physician. kb
== END 2019-04-04 08:36 | disposition home or self-care (01) ==
LOC: ER 08:03
DX: K04.7 Periapical abscess without sinus (principal); Z21 Asymptomatic human immunodeficiency virus [HIV] infection status
CPT/HCPCS: 99283

== ENCOUNTER 2024-10-03 21:42 | Emergency (ER) | payer OTHER ==
--- OUTSIDE RECORDS SUMMARY | 2024-10-03 21:54 | XMS REPORT | Continuity of Care Document ---
Author Name Unknown Address [address] [facility] [address] [place] [address] [facility] thconnect Address [address] [facility] [address] [place] [address] Care Team Providers Care Order Schedule Clerk Name Role Phone Wyatt Dunn Primary Care Physician FAM CHUNG Attending Clinician Unavailable BERNARD DREW Attending Clinician Unavailable Fam Barber Attending Clinician [phone] [facility] Attending Clinician Unavailable MARCELA NIÑO Attending Clinician Unavailable MARCELA NIÑO Attending Clinician Unavailable Marcela Niño MD Attending Clinician [phone] Torie Gomes RN Attending Clinician Un available Samson Avalos MD Attending Clinician [phone] Pradeep Aaron MD Attending Clinician BELEN NYE Attending Clinician UnavailHERMAN Hudson Attending Clinician Unavailable Chay Greco MD Attending Clinician [phone] Ruth Kessler MD Attending Clinician [phone] ALBINA ALEXANDRE Attending Clinician Autumn Mary Bedolla MD Attending Clinician Unavailable Albina Alexandre MD Attending Clinician HECTOR CONTRERAS Attending Clinician Unavailable Hector Contreras MD Attending Clinician [phone] Jesús Freeman MD Attending Clinician [phone] Neida Pool Attending Clinician [phone] NEIDA PINA Attending Clinician Unavailable HOSSEIN HARRIS Attending Clinician Unavailable Hossein Harris MD Attending Clinician [phone] [facility] Attending Clinician Unavailable Fam Barber Attending Clinician [phone] Doctor Unassigned, [facility] Attending Clinician U Herman Topete MD Attending Clinician [phone] MARIA M SCHILLING Attending Clinician Unavailable Maria M Schilling MD Attending Clinician [phone] Mario WELLS, Kate Attending Clinician [phone] Anjana VILLEGAS, Adriano Urbano Attending Clinician Unavaila KRISH Smyth Attending Clinician Unavailab Heladio Huang MD Attending Clinician [phone] Krish Ferreira MD Attending Clinician [phone] MARCELA NIÑO Admitting Clinician Unavailable Marcela Niño MD Admitting Clinician [phone] HERMAN BANG Admitting Clinician Unavailable Payers Payer Name Policy Type Policy Number Effective Date Expirati on Date Source Problems Condition Name Condition Details Condition Category Status Onset Date Resolution Date Last Treatment Date Treating Clinician Comments Source 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 - 00:00: 00 [facility] Obesity (BMI 30-39.9) Obesity (BMI 30-39.9) Disease Active 8-21 00:00: 00 [facility] Cancer of skin of external nose Cancer of skin of external nose Disease Active 4-26 00:00: 00 [facility] Hip impingemen t syndrome Hip impingemen t syndrome Disease Active 08-27 00:00: 00 [facility] Enthesopat hy of hip region Enthesopat hy of hip region Disease Active 08-27 00:00: 00 [facility] Strain of muscle of hip or thigh Strain of muscle of hip or thigh Disease Active 08-27 00:00: 00 [facility] Human immunodefi ciency virus (HIV) disease Human immunodefi ciency virus (HIV) disease Disease Active 12-19 00:00: 00 [facility] 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 ICD10 Diagnosis Term Heel Molder Utility [facility] Obsessive- compulsive disorder Obsessive- compulsive disorder Disease Active 09-19 00:00: 00 Overview: Formattin g of this note might be different from the original. ICD10 Diagnosis Term Heel Molder Utility [facility] Pain in joint, pelvic region and thigh Pain in joint, pelvic region and thigh Disease Active 09-19 00:00: 00 Overview: Formattin g of this note might be different from the original. Chronic Hip Pain unable to abstract more specifica lly at this time. REG, Med. Abstracte r [id number]@8: 13pm [facility] Essential and other specified forms of tremor Essential and other specified forms of tremor Disease Active 09-19 00:00: 00 [facility] ASYMPTOMAT IC HIV INFECTION STATUS(aka V08) ASYMPTOMAT IC HIV INFECTION STATUS(aka V08) Disease Resolve d 09-19 00:00: 00 2009-12-19 00:00:00 2009-12-19 15:03:17 [facility] Other and unspecifie d hyperlipid emia Other and unspecifie d hyperlipid emia Disease Resolve d 09-19 00:00: 00 2009-12-19 00:00:00 2009-12-19 15:03:24 [facility] Allergies, Adverse Reactions, Alerts Allergy Name Allergy Type Status Severity Reaction(s) Onset Date Inactive Date Treating Clinician Comments Source NO KNOWN ALLERGIE S Drug Class Active [facility] Family History Family Member Diagnosis Comments Start Date Stop Date Sourc e Natural father Coronary Heart Disease [facility] Maternal grandfather Hypertension [facility] Natural [facility] Natural mother Skin Cancer [facility] Natural mother Uterine Cancer [facility] Natural sister COPD (chronic obstructive pulmonary disease) [facility] Natural sister Other - see comments [facility] Social History Social Habit Start Date Stop Date Quantity Comments Source [facility] Sexual orientation [facility] History of tobacco use Cigarette Smoker [facility] Alcoholic beverage intake 2024-09-16 00:00:00 2024-09-16 00:00:00 Ex-drinker (finding) [facility] History of Social function 2024-09-16 00:00:00 2024-09-16 00:00:00 [facility] Tobacco use and exposure 2024-03-22 00:00:00 2024-03-22 00:00:00 Smokeless tobacco non-user [facility] Cigarettes smoked current (pack per day) - Reported 2024-03-22 00:00:00 2024-03-22 00:00:00 [facility] Cigarette pack-years 2024-03-22 00:00:00 2024-03-22 00:00:00 [facility] Alcohol intake 2023-12-04 00:00:00 2023-12-04 00:00:00 Ex-drinker (finding) [facility] Tobacco Comment 2023-11-25 00:00:00 2023-11-25 00:00:00 Smoke 10 cigarettes per day. Started smoking at age 20. Up to 3 ppd. [facility] Sex assigned at 1960 00:00:00 1960 00:00:00 [facility] Smoking Status Start Date Stop Date Source Ex-smoker 2024-03-22 00:00:00 2024-03-22 00:00:00 [facility] Smokes tobacco daily 2023-12-24 00:00:00 [facility] Medications Ordered Medication Name Filled Medication Name Start Date Stop Date Current Medication? Ordering Clinician Indication Dosage Frequency Signature (SIG) Comments Components Source amoxicillin -clavulanat e (AUGMENTIN) 875-125 mg per tablet 2023-08 00:00: 00 05-21 04:59 :00 No [id number] 1{tbl} Take 1 tablet by mouth in the morning and 1 tablet in the evening. Do all this for 7 days. [facility] venlafaxine XR (EFFEXOR XR) 24 hr capsule 150 mg 05-04 13:00: 00 Yes 150mg 150 mg, Oral, QAM WITH BREAKFAST, First dose on Thu05/04/24 at 0800, Until Discontinu ed, Routine [facility] mirtazapine (REMERON) tablet 30 mg 05-04 02:00: 00 Yes 30mg 30 mg, Oral, QHS, First dose on Thu05/03/24 at 2100, Until Discontinu ed, Routine [facility] primidone (MYSOLINE) tablet 50 mg 05-04 01:00: 00 Yes 50mg 50 mg, Oral, BID, First dose on Thu05/03/24 at 2000, Until Discontinu ed [facility] propranoloL (INDERAL) tablet 40 mg 05-04 01:00: 00 Yes 40mg 40 mg, Oral, BID, First dose on Thu05/03/24 at 1999, Until Discontinu ed, Routine [facility] amoxicillin -clavulanat e (AUGMENTIN) 875-125 mg per tablet 1 tablet 05-04 01:00: 00 05-14 00:59 :00 No 1{tbl} 1 tablet, Oral, Q12H, 20 doses, First dose on Thu05/03/24 at 1999, Last dose on Thu05/13/24 at 0800, Routine, Reason for Anti-Infec tive: Surgical Prophylaxi s, Surgical Prophylaxi s: Head and Neck, Duration of therapy: within 24 hours of surgery [facility] acetaminoph en (TYLENOL 8 HOUR) 650 mg CR tablet 05-04 00:00: 00 Yes [id number] 650mg Take 1 tablet by mouth every 8 (eight) hours as needed for Pain. [facility] amoxicillin -clavulanat e (AUGMENTIN) 875-125 mg per tablet 05-04 00:00: 00 05-13 00:00 :00 No [id number] 1{tbl} Take 1 tablet by mouth in the morning and 1 tablet in the evening. Do all this for 10 days. [facility] acetaminoph en 500 mg tablet 05-04 00:00: 05-12 04:59 :00 No [id number] 1000mg Take 2 tablets by mouth every 8 (eight) hours for 7 days. [facility] celecoxib 200 mg capsule 05-04 00:00: 05-12 04:59 :00 No [id number] 200mg Take 1 capsule by mouth in the morning and 1 capsule in the evening. Take with meals. Do all this for 7 days. [facility] gabapentin 100 mg capsule 05-04 00:00: 05-12 04:59 :00 No [id number] 100mg Take 1 capsule by mouth in the morning and 1 capsule at noon and 1 capsule in the evening. Do all this for 7 days. [facility] celecoxib (CELEBREX) 100 mg capsule 05-04 00:00: 00 05-12 04:59 :00 No [id number] 100mg Take 1 capsule by mouth in the morning and 1 capsule in the evening. Take with meals. Do all this for 7 days. [facility] gabapentin 300 mg capsule 05-04 00:00: 00 05-12 04:59 :00 No [id number] 300mg Take 1 capsule by mouth in the morning and 1 capsule at noon and 1 capsule in the evening. Do all this for 7 days. [facility] mupirocin 2 % ointment 05-04 00:00: 00 05-08 04:59 :00 No [id number] Apply to area(s) 3 (three) times daily for 3 days. [facility] venlafaxine XR (EFFEXOR XR) 24 hr capsule 75 mg 05-03 22:00: 00 Yes 75mg 75 mg, Oral, DAILY AT 1700, First dose on Thu05/03/24 at 1700, Until Discontinu ed, Routine [facility] celecoxib (CELEBREX) capsule 200 mg 05-03 22:00: 00 Yes 200mg 200 mg, Oral, BID MEALS, First dose on Thu05/03/24 at 1700, Until Discontinu ed, Routine [facility] rilpivirine HCl (EDURANT) tablet 25 mg 05-03 19:15: 00 Yes 25mg 25 mg, Oral, DAILY, First dose (after last modificati on) on Thu05/03/24 at 1415, Until Discontinu ed, Routine [facility] emtricitabi ne-tenofovi r alafen (DESCOVY) tablet 1 tablet 05-03 19:15: 00 Yes 1{tbl} 1 tablet, Oral, DAILY, First dose (after last modificati on) on Thu05/03/24 at 1415, Until Discontinu ed, Routine [facility] sulfamethox azole-trime thoprim (BACTRIM DS) 800-160 mg per tablet 1 tablet 05-03 19:15: 00 Yes 1{tbl} 1 tablet, Oral, DAILY, First dose on Thu05/03/24 at 1415, Until Discontinu ed, NURIS, Reason for Anti-Infec tive: Empiric Non-Surgic al Prophylaxi s, Duration of therapy: 5 days, Specific indication : Daily HIV prophylaxi s [facility] ARIPiprazol e (ABILIFY) tablet 10 mg 05-03 19:15: 00 Yes 10mg 10 mg, Oral, DAILY, First dose on Thu05/03/24 at 1415, Until Discontinu ed, Routine [facility] traZODone (DESYREL) tablet 100 mg 05-03 19:10: 42 Yes 100mg 100 mg, Oral, QHSPRN, Starting on Thu05/03/24 at 1410, Until Discontinu ed, Routine, Insomnia [facility] bacitracin 500 unit/g ointment 30 g tube 05-03 19:00: 00 Yes Topical, TID, First dose on Thu05/03/24 at 1400, Until Discontinu ed, Routine [facility] gabapentin (NEURONTIN) capsule 100 mg 05-03 19:00: 00 Yes 100mg 100 mg, Oral, TID, First dose on Thu05/03/24 at 1400, Until Discontinu ed, Routine [facility] acetaminoph en (TYLENOL) tablet 1,000 mg 05-03 19:00: 00 Yes 1000mg 1,000 mg, Oral, Q8H, First dose on Thu05/03/24 at 1400, Until Discontinu ed, Routine [facility] enoxaparin (LOVENOX) injection 40 mg 05-03 16:00: 00 Yes 40mg 40 mg, Subcutaneo us, DAILY, First dose on Thu05/03/24 at 1100, Until Discontinu ed, Routine [facility] oxyCODONE immediate release tablet 5 mg 05-03 15:02: 40 Yes 5mg 5 mg, Oral, Q6HPRN, Starting on Thu05/03/24 at 1002, Until Discontinu ed, Routine, Pain (scale 7-10), media law faculty member approving Restricted medication : MARCELA NIÑO [facility] polyethylen e glycol 3350 powder 17 g 05-03 15:02: 14 Yes 17g 17 g, Oral, QDAILYPRN, Starting on Thu05/03/24 at 1002, Until Discontinu ed, Routine, Constipati on [facility] ondansetron (ZOFRAN (PF)) injection 4 mg 05-03 15:01: 37 Yes 4mg 4 mg, Slow IV Push, Q6HPRN, Starting on Thu05/03/24 at 1001, Until Discontinu ed, Routine, Nausea and Vomiting (N/V) [facility] lactated ringers IV infusion 1,000 mL 05-03 14:45: 00 Yes 1000mL at 75 mL/hr, 1,000 mL, IV Infusion, CONTINUOUS , Starting on Thu05/03/24 at 0945, Until Discontinu ed, Routine, PACU [facility] HYDROmorpho ne (DILAUDID) injection 0.2 mg 05-03 14:42: 32 05-03 15:43 :05 No .2mg 0.2 mg, Slow IV Push, Q5MIN PRN, 10 doses, Starting on Thu05/03/24 at 0942, Until Thu05/03/24 at 1043, Routine, Pain (scale 7-10), PACU, Is this medication approved by a Faculty level provider? Yes, media law faculty member approving Restricted medication : PACU RECOVERY [facility] sugammadex (BRIDION) injection 05-03 14:29: 00 05-03 14:49 :59 No IV Push, ONCE INTRA PROCEDURE, Starting on Thu05/03/24 at 0929, Until Thu05/03/24 at 0949, Routine, Intra-op [facility] ondansetron (ZOFRAN (PF)) injection 05-03 14:29: 00 05-03 14:49 :59 No Slow IV Push, ONCE INTRA PROCEDURE, Starting on Thu05/03/24 at 0929, Until Thu05/03/24 at 0949, Routine, Intra-op [facility] lidocaine-e pinephrine (XYLOCAINE WITH EPINEPHRINE ) 1 %-1:100,000 injection 05-03 14:00: 00 05-03 14:49 :34 No PRN, Starting on Thu05/03/24 at 0900, Until Thu05/03/24 at 0949, Routine, Intra-op [facility] dexmedeTOMI Dine (PRECEDEX) injection 05-03 13:05: 00 05-03 14:49 :59 No Intravenou s, ONCE INTRA PROCEDURE, Starting on Thu05/03/24 at 0805, Until Thu05/03/24 at 0949, Routine, Intra-op [facility] dexamethaso ne (DECADRON PHOSPHATE) injection 05-03 12:41: 00 05-03 14:50 :00 No IV Push, ONCE INTRA PROCEDURE, Starting on 05/03/24 at 0741, Until Thu05/03/24 at 0950, Routine, Intra-op [facility] ceFAZolin (ANCEF) injection 05-03 12:38: 00 05-03 14:50 :00 No Slow IV Push, ONCE INTRA PROCEDURE, Starting on e 05/03/24 at 0738, Until 05/03/24 at 0950, NURIS, Intra-op [facility] phenylephri ne (VAZCULEP) injection 05-03 12:34: 00 05-03 14:50 :00 No Slow IV Push, ONCE INTRA PROCEDURE, Starting on Thu05/03/24 at 0734, Until Thu05/03/24 at 0950, Routine, Intra-op [facility] FENTanyl (PF) (SUBLIMAZE) injection 05-03 12:17: 00 05-03 14:50 :00 No Epidural, ONCE INTRA PROCEDURE, Starting on e 05/03/24 at 0717, Until Tu05/03/24 at 0950, Routine, Intra-op [facility] lidocaine 1% (XYLOCAINE) 100 mg/10 mL (1 %) injection 05-03 12:17: 00 05-03 14:50 :00 No Slow IV Push, ONCE INTRA PROCEDURE, Starting on e 05/03/24 at 0717, Until 05/03/24 at 0950, Routine, Intra-op [facility] propofoL IV infusion 05-03 12:17: 00 05-03 14:50 :00 No Slow IV Push, ONCE INTRA PROCEDURE, Starting on 05/03/24 at 0717, Until 05/03/24 at 0950, Routine, [facility] (ZEMURON[facility] 05-03 12:17: 00 05-03 14:50 :00 No IV Push, ONCE INTRA PROCEDURE, Starting on Thu05/03/24 at 0717, Until Thu05/03/24 at 0950, Routine, Intra-op [facility] midazolam (VERSED) injection 05-03 12:08: 05-04 17:44 :07 No IV Push, ONCE INTRA PROCEDURE, Starting on Thu05/03/24 at 0708, Until Thu05/04/24 at 1244, Routine, Intra-op [facility] lactated ringers IV infusion 05-03 12:08: 05-03 14:50 :00 No IV Infusion, CONTINUOUS PRN, Starting on Thu05/03/24 at 0708, Until Thu05/03/24 at 0950, Routine, Intra-op [facility] propranolol 40 mg tablet 04-06 00:00: 00 Yes mg Kelvin Nichols sennosides- docusate sodium 8.6-50 mg per tablet 04-03 00:00: 00 04-18 04:59 :00 No [id number] 1{tbl} Take 1 tablet by mouth in the morning for 14 days. [facility] mupirocin 2 % ointment 04-02 00:00: 00 Yes [id number] Apply to area(s) 3 (three) times daily. [facility] celecoxib 200 mg capsule 04-02 00:00: 00 04-17 04:59 :00 No [id number] 200mg Take 1 capsule by mouth in the morning and 1 capsule in the evening. Take with meals. Do all this for 14 days. [facility] gabapentin 300 mg capsule 04-02 00:00: 00 04-17 04:59 :00 No [id number] 300mg Take 1 capsule by mouth in the morning and 1 capsule at noon and 1 capsule in the evening. Do all this for 14 days. [facility] methocarbam oL 500 mg tablet 04-02 00:00: 00 04-17 04:59 :00 No [id number] 500mg Take 1 tablet by mouth 4 (four) times daily for 14 days. [facility] amoxicillin -clavulanat e 875-125 mg per tablet 04-02 00:00: 00 04-15 04:59 :00 No [id number] 1{tbl} Take 1 tablet by mouth every 12 (twelve) hours for 12 days. [facility] oxyCODONE 10 mg Tab 04-02 00:00: 00 04-10 04:59 :00 No [id number] 10mg Take 1 tablet by mouth every 4 (four) hours as needed for Pain (scale 7-10) for up to 7 days. Indication s: acute pain [facility] acetaminoph en 325 mg tablet 04-02 00:00: 00 04-02 00:00 :00 No [id number] 650mg Take 2 tablets by mouth every 6 (six) hours for 13 days. [facility] methocarbam oL (ROBAXIN) tablet 500 mg 04-01 21:00: 00 Yes 500mg 500 mg, Oral, QID, First dose on Thu04/01/24 at 1600, Until Discontinu ed, Routine [facility] magnesium hydroxide (MILK OF MAGNESIA) 400 mg/5 mL suspension 30 mL 04-01 20:47: 17 04-01 21:36 :00 No 30mL 30 mL, Oral, QDAILYPRN, 1 dose, Starting on Thu04/01/24 at 1547, Until Thu04/01/24 at 1636, Routine, Constipati on [facility] gabapentin (NEURONTIN) capsule 300 mg 04-01 19:00: 00 Yes 300mg 300 mg, Oral, TID, First dose (after last modificati on) on Thu04/01/24 at 1400, Until Discontinu ed, Routine [facility] oxyCODONE immediate release tablet 10 mg 04-01 18:22: 08 Yes 10mg 10 mg, Oral, Q4HPRN, Starting on Thu04/01/24 at 1322, Until Discontinu ed, Routine, Pain (scale 7-10), media law faculty member approving Restricted medication : MARCELA NIÑO [facility] sennosides- docusate sodium (SENOKOT-S) 8.6-50 mg per tablet 1 tablet 04-01 14:00: 00 Yes 1{tbl} 1 tablet, Oral, DAILY, First dose on Thu04/01/24 at 0900, Until Discontinu ed, Routine [facility] celecoxib (CELEBREX) capsule 200 mg 04-01 13:00: 00 Yes 200mg 200 mg, Oral, BID MEALS, First dose (after last modificati on) on Thu04/01/24 at 0800, Until Discontinu ed, Routine [facility] acetaminoph en (TYLENOL) tablet 650 mg 04-01 05:00: 00 Yes 650mg 650 mg, Oral, Q6H, First dose on Thu04/01/24 at 0000, Until Discontinu ed, Routine [facility] emtricitab- rilpivir-te nofo ala (ODEFSEY) 200-25-25 mg Tab 1 tablet 03-31 20:15: 00 Yes 1{tbl} 1 tablet, Oral, DAILY, First dose on Thu03/31/24 at 1515, Until Discontinu ed, Routine [facility] enoxaparin (LOVENOX) injection 40 mg 03-31 14:00: 00 Yes 40mg 40 mg, Subcutaneo us, DAILY, First dose on Thu03/31/24 at 0900, Until Discontinu ed, Routine [facility] morphine (2 mg/mL) injection 4 mg 03-31 13:15: 00 03-31 12:52 :00 No 4mg 4 mg, Slow IV Push, ONCE, 1 dose, On Thu03/31/24 at 0815, Routine [facility] mupirocin (BACTROBAN OINT) 2 % oinintment 03-31 13:00: 00 Yes [facility] celecoxib (CELEBREX) capsule 100 mg 03-31 13:00: 00 03-31 22:32 :26 No 100mg 100 mg, Oral, BID MEALS, First dose on Thu03/31/24 at 0800, Until Discontinu ed, Routine [facility] oxyCODONE immediate release tablet 5 mg 03-31 12:30: 00 03-31 22:32 :26 No 5mg 5 mg, Oral, Q6H, First dose (after last modificati on) on Thu03/31/24 at 0730, Until Discontinu ed, Routine, media law faculty member approving Restricted medication : MARCELA NIÑO [facility] oxyCODONE immediate release tablet 10 mg 03-31 12:23: 01 04-01 18:23 :39 No 10mg 10 mg, Oral, Q6HPRN, Starting on Thu03/31/24 at 0723, Until Thu04/01/24 at 1323, Routine, Pain (scale 7-10), media law faculty member approving Restricted medication : MARCELA NIÑO [facility] acetaminoph en (TYLENOL) tablet 650 mg 03-31 05:00: 00 03-31 22:32 :26 No 650mg 650 mg, Oral, Q6H, First dose on Thu03/31/24 at 0000, Until Discontinu ed, Routine [facility] propranoloL (INDERAL) tablet 40 mg 03-31 01:00: 00 Yes 40mg 40 mg, Oral, BID, First dose on Thu03/30/24 at 2000, Until Discontinu ed, Routine [facility] amoxicillin -clavulanat e (AUGMENTIN) 875-125 mg per tablet 1 tablet 03-31 01:00: 00 04-05 00:59 :00 No 1{tbl} 1 tablet, Oral, Q12H, 10 doses, First dose on Thu03/30/24 at 2000, Last dose on Thu04/04/24 at 0800, Routine, Reason for Anti-Infec tive: Empiric Therapy for Suspected Infection, Empiric Therapy Site: HEENT, Duration of therapy: 5 days [facility] gabapentin (NEURONTIN) capsule 100 mg 03-31 01:00: 00 04-01 18:23 :39 No 100mg 100 mg, Oral, TID, First dose on Thu03/30/24 at 2000, Until Discontinu ed, Routine [facility] morphine (2 mg/mL) injection 2 mg 03-31 00:02: 03 03-31 11:37 :35 No 2mg 2 mg, Slow IV Push, PRN - SEE INSTRUCTCORRINA NS, Starting on Thu03/30/24 at 1902, Until Sharonda 03/31/24 at 0637, Routine, 1x dose for pain refractory to oral pain medication . Can be given on floor, do not give in PACU [facility] oxyCODONE immediate release tablet 5 mg 03-31 00:01: 06 03-31 12:23 :29 No 5mg 5 mg, Oral, Q6HPRN, Starting on Thu03/30/24 at 1901, Until Sharonda 03/31/24 at 0723, Routine, Pain (scale 7-10), media law faculty member approving Restricted medication : MARCELA NIÑO [facility] lactated ringers IV infusion 1,000 mL 03-30 23:30: 00 Yes 1000mL at 75 mL/hr, 1,000 mL, IV Infusion, CONTINUOUS , Starting on Thu03/30/24 at 1830, Until Discontinu ed, Routine, PACU [facility] HYDROcodone -acetaminop hen (NORCO 5) tablet 1 tablet 03-30 23:30: 00 03-31 00:16 :00 No 1{tbl} 1 tablet, Oral, ONCE, 1 dose, On Thu03/30/24 at 1830, Routine, PACU [facility] HYDROmorpho ne (DILAUDID) injection 0.2 mg 03-30 23:22: 14 03-31 01:04 :07 No .2mg 0.2 mg, Slow IV Push, Q5MIN PRN, 10 doses, Starting on Thu03/30/24 at 1822, Until Thu03/30/24 at 2004, Routine, Pain (scale 7-10), PACU, Is this medication approved by a Faculty level provider? Yes, media law faculty member approving Restricted medication : PACU RECOVERY [facility] mupirocin 2 % ointment 03-28 00:00: 00 Yes [id number] Apply to area(s) 3 (three) times daily. [facility] HYDROcodone -acetaminop hen 5-325 mg tablet 03-28 00:00: 00 03-31 04:59 :00 No [id number] 1{tbl} Take 1 tablet by mouth every 6 (six) hours as needed for Pain (scale 7-10) for up to 2 days. Indication s: acute pain [facility] amoxicillin -clavulanat e (AUGMENTIN) 875-125 mg per tablet 03-24 00:00: 00 Yes [id number] 1{tbl} Take 1 tablet by mouth in the morning and 1 tablet in the evening. [facility] celecoxib (CELEBREX) capsule 200 mg 03-23 22:00: 00 Yes 200mg 200 mg, Oral, BID MEALS, First dose (after last modificati on) on Thu03/23/24 at 1700, Until Discontinu ed, Routine [facility] acetaminoph en (TYLENOL) tablet 1,000 mg 03-23 14:00: 00 Yes 1000mg 1,000 mg, Oral, Q8H, First dose (after last modificati on) on Thu03/23/24 at 0900, Until Discontinu ed, Routine [facility] oxyCODONE immediate release tablet 5 mg 03-23 13:55: 31 Yes 5mg 5 mg, Oral, Q6HPRN, Starting on Thu03/23/24 at 0855, Until Discontinu ed, Routine, Pain (scale 7-10), media law faculty member approving Restricted medication : MARCELA NIÑO [facility] oxyCODONE immediate release tablet 5 mg 03-23 13:55: 00 03-23 14:31 :00 No 5mg 5 mg, Oral, ONCE, 1 dose, On Thu03/23/24 at 0900, Routine, media law faculty member approving Restricted medication : MARCELA NIÑO [facility] propranoloL (INDERAL) tablet 40 mg 03-23 01:00: 00 Yes 40mg 40 mg, Oral, BID, First dose on Thu03/22/24 at 1999, Until Discontinu ed, Routine [facility] amoxicillin -clavulanat e (AUGMENTIN) 875-125 mg per tablet 1 tablet 03-23 01:00: 00 04-02 00:59 :00 No 1{tbl} 1 tablet, Oral, Q12H, 20 doses, First dose on Thu03/22/24 at 1999, Last dose on Thu04/01/24 at 0800, Routine, Reason for Anti-Infec tive: Surgical Prophylaxi s, Surgical Prophylaxi s: Head and Neck, Duration of therapy: within 24 hours of surgery [facility] sodium chloride 0.65 % nasal spray 03-23 00:00: 00 Yes [id number] 2{spray } Use 2 Sprays in each nostril in the morning. [facility] ARIPiprazol e 10 mg tablet 03-23 00:00: 00 Yes [id number] 10mg Take 1 tablet by mouth every evening. [facility] meningococc al conj vaccine (JERRICA A-C-Y-W-135 -DIP, PF,) 10-5 mcg/0.5 mL injection 03-23 00:00: 00 Yes [id number] Inject 0.5 ml IM once and repeat in 2 months [facility] emtricitab- rilpivir-te nofo ala (ODEFSEY) 200-25-25 mg Tab 03-23 00:00: 00 Yes [id number] 1{tbl} Take 1 tablet by mouth in the morning. Please keep appt [facility] mirtazapine 30 mg tablet 03-23 00:00: 00 Yes [id number] 30mg Take 1 tablet by mouth at bedtime. [facility] propranoloL 40 mg tablet 03-23 00:00: 00 Yes [id number] 40mg Take 1 tablet by mouth in the morning and 1 tablet in the evening. [facility] traZODone 100 mg tablet 03-23 00:00: 00 Yes [id number] 100mg Take 1 tablet by mouth at bedtime. [facility] buPROPion 100 mg tablet 03-23 00:00: 00 09-16 00:00 :00 No [id number] 100mg Take 1 tablet by mouth in the morning. [facility] celecoxib 100 mg capsule 03-23 00:00: 00 04-02 00:00 :00 No [id number] 200mg Take 2 capsules by mouth in the morning and 2 capsules in the evening. Take with meals. [facility] gabapentin 100 mg capsule 03-23 00:00: 00 04-02 00:00 :00 No [id number] 100mg Take 1 capsule by mouth in the morning and 1 capsule at noon and 1 capsule in the evening. [facility] oxyCODONE 5 mg immediate release tablet 03-23 00:00: 00 04-02 00:00 :00 No [id number] 5mg Take 1 tablet by mouth every 6 (six) hours as needed for Pain (scale 7-10). Indication s: acute pain [facility] ibuprofen 800 mg tablet 03-23 00:00: 00 04-02 00:00 :00 No [id number] Take one tab every 8 hrs with food prn severe pain [facility] acetaminoph en (TYLENOL EXTRA STRENGTH) 500 mg tablet 03-23 00:00: 00 03-31 04:59 :00 No [id number] 1000mg Take 2 tablets by mouth every 8 (eight) hours. [facility] docusate (COLACE) 100 mg capsule 03-23 00:00: 00 03-31 04:59 :00 No [id number] 100mg Take 1 capsule by mouth in the morning. [facility] enoxaparin (LOVENOX) injection 40 mg 03-22 22:00: 00 Yes 40mg 40 mg, Subcutaneo us, DAILY, First dose on Thu03/22/24 at 1700, Until Discontinu ed, Routine [facility] celecoxib (CELEBREX) capsule 100 mg 03-22 22:00: 00 03-23 13:55 :55 No 100mg 100 mg, Oral, BID MEALS, First dose on Thu03/22/24 at 1700, Until Discontinu ed, [facility] (AQUAPHOR) ointment 03-22 19:00: 00 Yes Topical, BID, First dose on Thu03/22/24 at 1400, Until Discontinu ed, Routine [facility] gabap[facility] (NEURONTIN) capsule 100 mg 03-22 19:00: 00 Yes 100mg 100 mg, Oral, TID, First dose on Thu03/22/24 at 1400, Until Discontinu ed, Routine [facility] acetaminoph en (TYLENOL) tablet 650 mg 03-22 17:00: 00 03-23 13:55 :55 No 650mg 650 mg, Oral, Q6H, First dose (after last modificati on) on Thu03/22/24 at 1200, Until Discontinu ed, Routine [facility] lactated ringers IV infusion 1,000 mL 03-22 14:00: 00 Yes 1000mL at 42 mL/hr, 1,000 mL, IV Infusion, CONTINUOUS , Starting on Thu03/22/24 at 0900, Until Discontinu ed, Routine, PACU [facility] HYDROcodone -acetaminop hen (NORCO 5) tablet 1 tablet 03-22 14:00: 00 03-22 14:28 :00 No 1{tbl} 1 tablet, Oral, ONCE, 1 dose, On Thu03/22/24 at 0900, Routine, PACU [facility] FENTanyl (PF) (SUBLIMAZE) injection 50 mcg 03-22 13:58: 26 03-22 19:00 :00 No 50ug 50 mcg, Slow IV Push, Q5MIN PRN, 4 doses, Starting on Thu03/22/24 at 0858, Until Thu03/22/24 at 1400, Routine, Pain (scale 7-10), PACU [facility] HYDROcodone -acetaminop hen (NORCO 5) tablet 1 tablet 03-22 13:52: 03 03-23 13:55 :54 No 1{tbl} 1 tablet, Oral, Q6HPRN, Starting on Thu03/22/24 at 0852, Until Thu03/23/24 at 0855, Routine, Pain (scale 4-6) [facility] ODEFSEY 200-25-25 mg Tab 03-18 00:00: 00 03-23 00:00 :00 No [id number] 1{tbl} Take 1 tablet by mouth in the morning. Please keep appt [facility] ibuprofen 800 mg tablet 03-18 00:00: 00 03-23 00:00 :00 No [id number] Take one tab every 8 hrs with food prn severe pain [facility] meningococc al conj vaccine (JERRICA A-C-Y-W-135 -DIP, PF,) 10-5 mcg/0.5 mL injection 03-18 00:00: 00 03-23 00:00 :00 No [id number] Inject 0.5 ml IM once and repeat in 2 months [facility] diph,pertus ,acel,,teta nus, ADACEL, injection 03-18 00:00: 00 03-19 04:59 :00 No [id number] 9104 .5mL 0.5 mL by Intramuscu lar route once now for 1 dose. [facility] ARIPiprazol e 30 mg tablet 03-08 00:00: 00 Yes [facility] buPROPion XL 150 mg 24 hr tablet 02-16 00:00: 00 09-16 00:00 :00 No [facility] Odefsey 200 mg-25 mg-25 mg tablet 30 00:00: 00 Yes mg Kelvin Nichols PRIMIDONE ORAL 11-24 10:21: 44 Yes Take by mouth daily. [facility] buPROPion 100 mg tablet 17 10:18: 56 14 00:00 :00 No 100mg Take 1 tablet by mouth in the morning. [facility] IBU 800MG 11-18 00:00: 00 Yes Kelvin Nichols PROMETHAZIN E 25MG 11-18 00:00: 00 Yes 25 Kelvin Nichols aripiprazol e 30 mg tablet 11-18 00:00: 00 Yes mg Kelvin Nichols proMETHazin e 25 mg tablet 11-18 00:00: 00 Yes 25mg Take 1 tablet by mouth as needed for Nausea and Vomiting (N/V). [facility] Odefsey 200 mg-25 mg-25 mg tablet 11-16 00:00: 00 Yes mg Kelvin Nichols primidone 50 mg tablet 11-16 00:00: 00 Yes mg Kelvin Nichols mirtazapine 45 mg tablet 11-16 00:00: 00 Yes mg Kelvin Nichols ibuprofen 800 mg tablet 11-16 00:00: 00 Yes mg Kelvin Nichols cyclobenzap rine 10 mg tablet 11-16 00:00: 00 Yes mg Kelvin Nichols bupropion HCl XL 150 mg 24 hr tablet, extended release 11-16 00:00: 00 Yes 1mg Kelvin Nichols propranolol 40 mg tablet 11-16 00:00: 00 Yes 1mg Kelvin Nichols promethazin e 25 mg tablet 11-16 00:00: 00 Yes 1mg Kelvin Nichols trazodone 100 mg tablet 11-16 00:00: 00 Yes 1mg Kelvin Nichols venlafaxine ER 150 mg capsule,ext ended release 24 hr 11-16 00:00: 00 Yes 1mg Kelvin Nichols venlafaxine ER 75 mg capsule,ext ended release 24 hr 0 -09 00:00: 00 Yes 1mg Kelvin Nichols bupropion HCl XL 150 mg 24 hr tablet, extended release -07 00:00: 00 Yes mg Kelvin Nichols trazodone 100 mg tablet 0 4-07 00:00: 00 Yes mg Kelvin Nichols traZODone 100 mg tablet - 00:00: 00 - 00:00 :00 No 100mg Take 1 tablet by mouth at bedtime. [facility] venlafaxine ER 150 mg capsule,ext ended release 24 hr - 00:00: 00 Yes mg Kelvin Nichols venlafaxine ER 75 mg capsule,ext ended release 24 hr - 00:00: 00 Yes mg Kelvin Nichols propranolol 40 mg tablet 3-30 00:00: 00 Yes mg Kelvin Nichols ARIPIPRAZOL E 30MG 3-24 00:00: 00 Yes Kelvin Nichols fludeoxyglu cose F-18 (FDG) injection 10 millicurie -08 17:30: 00 10-15 19:34 :35 No [id number] 10mCi 10 millicurie , Intravenou s, ONCE, 1 dose, On Thu10/16/23 at 1130, Routine [facility] Odefsey 200 mg-25 mg-25 mg tablet 3-07 00:00: 00 Yes mg Kelvin Nichols VENLAFAXINE 75MG ER 0 3-05 00:00: 00 Yes Kelvin Nichols primidone 50 mg tablet 0 2-23 00:00: 00 Yes mg Kelvin Nichols TRAZODONE 100MG 0 2-12 00:00: 00 Yes Kelvin Nichols TAKE 1 TABLET BY MOUTH EVERY DAY IN THE MORNING 0 2-12 00:00: 00 Yes Kelvin Nichols TAKE 1 TABLET BY MOUTH EVERY DAY 2023-0 2-12 00:00: 00 Yes 30 Kelvin Nichols mirtazapine 45 mg tablet 0 1-24 00:00: 00 Yes mg Kelvin Nichols VENLAFAXINE 150MG ER 09-02 00:00: 00 Yes Kelvin Nichols ARIPIPRAZOL E 15MG 09-02 00:00: 00 Yes Kelvin Nichols PROMETHAZIN E 25MG -16 00:00: 00 Yes [id number] Kelvin Nichols cyclobenzap rine 10 mg tablet 08-23 00:00: 00 Yes mg Kelvin Nichols ibuprofen 800 mg tablet 08-23 00:00: 00 Yes mg Kelvin Nichols iopamidol (ISOVUE 370-500 mL) injection 80 mL 08-20 17:30: 00 08-20 16:45 :00 No [id number] 80mL 80 mL, Intravenou s, ONCE, 1 dose, On [place] 08/20/23 at 1130, Routine [facility]T DAILY 08-18 00:00: 00 Yes Kelvin Nicohls TAKE 1 TABLET BY MOUTH DAILY 08-18 00:00: 00 12-15 00:00 :00 No [id number] Kelvin Nichols TAKE 1 TABLET TWICE DAILY NEEDED. 08-18 00:00: 00 12-15 00:00 :00 No 25 Kelvin Nichols TAKE 1 TABLET BY MOUTH TWICE A DAY 08-18 00:00: 00 12-15 00:00 :00 No 40 Kelvin Nichols TAKE 1 TABLET 3 TIMES DAILY NEEDED. 08-18 00:00: 00 12-15 00:00 :00 No 10 Kelvin Nichols PROPRANOLOL 40MG - 00:00: 00 Yes Kelvin Nichols ARIPIPRAZOL E 30MG 2022-08- 00:00: 00 Yes 30 Kelvin Nichols TAKE 1 TABLET BY MOUTH TWICE A DAY 2022-08- 00:00: 00 Yes Kelvin Nichols PRIMIDONE 50MG 2022-08 00:00: 00 Yes [id number] Kelvin Nichols MIRTAZAPINE 45MG 2022-08- 00:00: 00 Yes Kelvin Nichols ARIPIPRAZOL E 30MG 2022-08 00:00: 00 Yes Kelvin Nichols TAKE 2 CAPSULE BY MOUTH EVERY MORNING 2022-08 00:00: 00 Yes Kelvin Nichols ARIPIPRAZOL E 15MG 2022-08 00:00: 00 Yes [id number] Kelvin Nichols APAP/CODEIN E 300-60MG 2022-08- 00:00: 00 Yes Kelvin Nichols TAKE 1 TABLET BY MOUTH EVERY EVENING 2022-08 00:00: 00 Yes Kelvin Nichols MIRTAZAPINE 45MG 2022-08 00:00: 00 Yes [id number] Kelvin Nichols SMZ/TMP DS [id number] 0709-1 0-20 00:00: 00 Yes Kelvin Nichols CYCLOBENZAP R 10MG 2022-08 00:00: 00 Yes [id number] Kelvin Nichols CHEW OR SWALLOW 1 TABLET DAILY. 2022-08 00:00: 00 Yes Kelvin Nichols TAKE 1 TABLET DAILY 2022-08 00:00: 00 Yes Kelvin Nichols TAKE 1 TABLET BY MOUTH EVERY DAY 2022-08 00:00: 00 Yes Kelvin Nichols TAKE 1 TABLET TWICE DAILY NEEDED. 2022-08 00:00: 00 12-15 00:00 :00 No 25 Kelvin Nichlos TAKE 1 TABLET TWICE DAILY. 2022-08 00:00: 00 12-15 00:00 :00 No 50 Kelvin Nichols TAKE 1 TABLET 3 TIMES DAILY NEEDED. 2022-08 00:00: 00 12-15 00:00 :00 No 10 Kelvin Nichols TAKE 1 TABLET BY MOUTH TWICE A DAY 2022-08 00:00: 00 12-15 00:00 :00 No 40 Kelvin Nichols TAKE 1 TABLET BY MOUTH TWICE A DAY 05-08 00:00: 00 Yes Kelvin Nichols FLUOROURACI L 5% CRE 05-04 00:00: 00 Yes Kelvin Nichols fluorouraci L 5 % cream 05-04 00:00: 00 05-19 04:59 :00 No [id number] Apply to area(s) 2 (two) times daily for 14 days. Use on arms. Stop if bleeding, ulceration , or severe pain occurs [facility] PRIMIDONE 50MG 905 00:00: 00 Yes 50 Kelvin Nichols ARIPIPRAZOL E 15MG 04-05 00:00: 00 Yes Kelvin Nichols MIRTAZAPINE 45MG 04-05 00:00: 00 Yes Kelvin Nichols TAKE 1 TABLET BY MOUTH TWICE A DAY 04-03 00:00: 00 Yes Kelvin Nichols VENLAFAXINE 150MG ER 03-22 00:00: 00 Yes Kelvin Nichols ARIPIPRAZOL E 15MG 03-22 00:00: 00 Yes Kelvin Nichols ODEFSEY 200-25-25 mg Tab 03-18 00:00: 00 03-18 00:00 :00 No [id number] 1{tbl} Take 1 tablet by mouth in the morning. Please keep appt [facility] APAP/CODEIN E 300-60MG 03-09 00:00: 00 Yes Kelvin Nichols TAKE 1 TABLET BY MOUTH TWICE A DAY 03-06 00:00: 00 Yes Kelvin Nichols TAKE 1 TABLET DAILY 03-03 00:00: 00 Yes Kelvin Nichols TAKE 1 TABLET BY MOUTH THREE TIMES A DAY NEEDED 03-03 00:00: 00 Yes Kelvin Nichols TAKE 1 TABLET BY MOUTH TWICE A DAY 03-03 00:00: 00 Yes Kelvin Nichols TAKE 1 TABLET BY MOUTH TWICE A DAY 03-03 00:00: 00 Yes Kelvin Nichols ibuprofen 800 mg tablet 03-03 00:00: 00 03-18 00:00 :00 No CHEW OR SWALLOW 1 TABLET DAILY. [facility] TAKE 1 TABLET TWICE DAILY NEEDED. 03-03 00:00: 00 12-15 00:00 :00 No 25 Kelvin Nichols TAKE 1 TABLET BY MOUTH DAILY 03-03 00:00: 00 12-15 00:00 :00 No [id number] Kelvin F Simone ARIPIPRAZOL E 10MG 2023-0 7-19 00:00: 00 Yes [id number] Kelvin Nichols ARIPiprazol e 10 mg tablet 3-0 7-19 00:00: 00 08- 00:00 :00 No 10mg Take 1 tablet by mouth every evening. [facility] venlafaxine XR 150 mg 24 hr capsule 2022-0 7-17 00:00: 00 Yes TAKE 2 CAPSULES BY MOUTH IN THE MORNING [facility] ARIPIPRAZOL E 15MG 3-0 7-10 00:00: 00 Yes Kelvin Nichols MIRTAZAPINE 45MG 3-0 7-10 00:00: 00 Yes Kelvin Nichols calcipotrie ne-fluorour acil cream 2022-0 6-26 00:00: 00 02-10 04:59 :00 No [id number] Apply to area(s) 2 (two) times daily for 7 days. Stop use early if bleeding, blistering , or pain without touching occurs. [facility] VENLAFAXINE 150MG ER 3-0 6-20 00:00: 00 Yes [id number] Kelvin Nichols ARIPIPRAZOL E 10MG 2023-0 6-13 00:00: 00 Yes [id number] Kelvin Nichols MIRTAZAPINE 30MG 2023-0 6-11 00:00: 00 Yes [id number] Kelvin Nichols ARIPIPRAZOL E 10MG 2023-0 5-30 00:00: 00 Yes Kelvin Nichols VENLAFAXINE 150MG ER 3-0 5-15 00:00: 00 Yes Kelvin Nichols MIRTAZAPINE 30MG 2023-0 5-14 00:00: 00 Yes [id number] Kelvin Nichols ODOMZO 200MG 2023-0 4-27 00:00: 00 Yes Kelvin Nichols ARIPIPRAZOL E 10MG 2023-0 4-20 00:00: 00 Yes [id number] Kelvin Nichols MIRTAZAPINE 30MG 2023-0 4-17 00:00: 00 Yes [id number] Kelvin Nichols TAKE 1 TABLET BY MOUTH EVERY DAY IN THE EVENING 3-0 4-17 00:00: 00 Yes Kelvin Nichols PROMETHAZIN E 25MG 2022-0 4-13 00:00: 00 Yes Kelvin Nichols SMZ/TMP DS [id number] [id number] 4-13 00:00: 00 Yes Kelvin Nichols TAKE 1 TABLET BY MOUTH EVERY DAY 2022-0 4-04 00:00: 00 Yes Kelvin Nichols TAKE 1 TABLET BY MOUTH EVERY DAY 0 4- 00:00: 00 Yes Kelvin Nichols TAKE 1 TABLET BY MOUTH TWICE A DAY NEEDED 2022-0 - 00:00: 00 Yes Kelvin Nichols TAKE 1 TABLET BY MOUTH TWICE A DAY 2022-0 - 00:00: 00 12-15 00:00 :00 No 40 Kelvin Nichols TAKE 1 TABLET TWICE DAILY. 0 - 00:00: 00 12-15 00:00 :00 No 50 Kelvin Nichols ODOMZO 200MG 2022-0 4-03 00:00: 00 Yes Kelvin Nichols VENLAFAXINE 37.5 ER 3-0 3-23 00:00: 00 Yes Kelvin Nichols ODEFSEY 3-0 3-23 00:00: 00 Yes Kelvin Nichols ODOMZO 200MG 3-0 3-09 00:00: 00 Yes Kelvin Nichols VENLAFAXINE 150MG ER 3-0 2-24 00:00: 00 Yes Kelvin Nichols ODEFSEY 3-0 2-24 00:00: 00 Yes Kelvin Nichols ODOMZO 200MG 3-0 2-13 00:00: 00 Yes Kelvin Nichols TAKE 1 TABLET BY MOUTH TWICE A DAY 2022-0 2-03 00:00: 00 Yes Kelvin Nichols ODEFSEY 3-0 1-30 00:00: 00 Yes Kelvin Nichols VENLAFAXINE 150MG ER 3-0 1-27 00:00: 00 Yes Kelvin Nichols MIRTAZAPINE 30MG 3-0 1-27 00:00: 00 Yes [id number] Kelvin Nichols TAKE 1 TABLET BY MOUTH IN THE EVENING 2022-0 1-23 00:00: 00 Yes Kelvin Nichols VENLAFAXINE 37.5 ER 2023-0 1-23 00:00: 00 Yes Kelvin Nichols ODOMZO 200MG 3-0 1-18 00:00: 00 Yes Kelvin Nichols PROMETHAZIN E 25MG 3-0 1-13 00:00: 00 Yes Kelvin Nichols IBUPROFEN 800MG 3-0 1-13 00:00: 00 Yes Kelvin Nichols TAKE 2 TABLETS BY MOUTH TODAY, THEN TAKE 1 TABLET DAILY FOR 4 DAYS DIRECTED 2022-0 1-10 00:00: 00 Yes Kelvin Nichols APAP/CODEIN E #4 2022-0 1-04 00:00: 00 Yes Kelvin Nichols PRIMIDONE 50MG 2022-0 1-04 00:00: 00 Yes Kelvin Nichols TAKE 1 TABLET TWICE A DAY 2022-0 1-03 00:00: 00 Yes Kelvin Nichols TAKE 1 TABLET BY MOUTH EVERY DAY 2022-0 1-03 00:00: 00 Yes Kelvin Nichols TAKE 1 TABLET BY MOUTH THREE TIMES A DAY NEEDED 2022-0 1-03 00:00: 00 Yes Kelvin Nichols TAKE 1 TABLET BY MOUTH TWICE A DAY 2022-0 1-03 00:00: 00 Yes Kelvin Nichols TAKE 1 TABLET BY MOUTH TWICE A DAY NEEDED 2022-0 1-03 00:00: 00 Yes Kelvin Nichols MIRTAZAPINE 30MG 2021-1 2-29 00:00: 00 Yes 30 Kelvin Nichols ARIPIPRAZOL E 2MG 2021-1 2-29 00:00: 00 Yes 2000 Kelvin Nichols ODOMZO 200MG 2-1 2-21 00:00: 00 Yes 200 Kelvin Nichols MIRTAZAPINE 30MG 2021-1 1-28 00:00: 00 Yes [id number] Kelvin Nichols ARIPIPRAZOL E 2MG 2-1 1-25 00:00: 00 Yes 1999 Kelvin Nichols TAKE 1 TABLET BY MOUTH EVEING 2021-1 0-31 00:00: 00 Yes Kelvin Nichols ARIPIPRAZOL E 2MG 2-1 0-30 00:00: 00 Yes 1999 Kelvin Nichols TAKE 1 CAPSULE BY MOUTH TWICE A DAY FOR 10 DAYS 2021-1 0-24 00:00: 00 Yes Kelvin Nichols TAKE 1 TABLET BY MOUTH EVERY DAY NEEDED 2021-1 0-18 00:00: 00 Yes Kelvin Nichols PRIMIDONE 50MG 2021-1 0-18 00:00: 00 Yes [id number] Kelvin Nichols 1 tablet daily 2021-1 0-18 00:00: 00 Yes 2 Kelvin Nichols TAKE 1 TABLET TWICE A DAY 2021-1 0-18 00:00: 00 Yes Kelvin Nichols TAKE 1 TABLET BY MOUTH EVERY DAY 2021-1 0-18 00:00: 00 Yes Kelvin Nichols TAKE 1 TABLET BY MOUTH TWICE A DAY NEEDED 2021-1 0-18 00:00: 00 Yes Kelvin Nichols TAKE 1 TABLET BY MOUTH EVERY DAY 2021-1 0-18 00:00: 00 Yes Kelvin Nichols PROPRANOLOL 40MG 2021-1 0-18 00:00: 00 Yes [id number] Kelvin Nichols ARIPIPRAZOL E 2MG 2021-1 0-03 00:00: 00 Yes 2000 Kelvin Nichols VENLAFAXINE 150MG ER 1 0-03 00:00: 00 Yes [id number] Kelvin Nichols APAP/CODEIN E #4 2021-0 9-06 00:00: 00 Yes Kelvin Nichols MIRTAZAPINE 30MG 2-0 5-31 00:00: 00 Yes [id number] Kelvin Nichols BUSPIRONE 10MG 2-0 5-31 00:00: 00 Yes [id number] Kelvin Nichols SERTRALINE 100MG 2-0 5-29 00:00: 00 Yes [id number] Kelvin Nichols TAKE 1 TABLET BY MOUTH TWICE A DAY 2021-0 5-04 00:00: 00 Yes Kelvin Nichols BUSPIRONE 10MG 2022-0 4-29 00:00: 00 Yes [id number] Kelvin Nichols SERTRALINE 100MG 2-0 4-29 00:00: 00 Yes [id number] Kelvin Nichols SERTRALINE 100MG 2-0 3-31 00:00: 00 Yes [id number] Kelvin Nichols ibuprofen 800 mg tablet 2021-0 3-11 00:00: 00 Yes 1mg Kelvin Nichols cyclobenzap rine 10 mg tablet 2021-0 3-11 00:00: 00 Yes 1mg Kelvin Nichols Dose Unknown 2021-0 3-08 00:00: 00 Yes Kelvin Nichols Dose Unknown 2021-0 3-08 00:00: 00 Yes Kelvin Nichols cyclobenzap rine 5 mg tablet - 00:00: 00 Yes 1mg Kelvin Nichols ibuprofen 800 mg tablet - 00:00: 00 Yes 1mg Kelvin Nichols sulfamethox azole 400 mg-trimetho prim 80 mg tablet 2020-08- 00:00: 00 Yes 1mg Kelvin Nichols Odefsey 200 mg-25 mg-25 mg tablet 2020-08- 00:00: 00 Yes 1mg Kelvin Nichols propranolol 40 mg tablet 2020-08 00:00: 00 Yes 1mg Kelvin Nichols sulfamethox azole 400 mg-trimetho prim 80 mg tablet - 00:00: 00 Yes 1mg Kelvin Nichols Odefsey 200 mg-25 mg-25 mg tablet - 00:00: 00 Yes 1mg Kelvin Nichols cyclobenzap rine 5 mg tablet - 00:00: 00 Yes 1mg Kelvin Nichols Odefsey 200 mg-25 mg-25 mg tablet 12-05 00:00: 00 Yes 1mg Kelvin Nichols sulfamethox azole 400 mg-trimetho prim 80 mg tablet - 00:00: 00 Yes 1mg Kelvin Nichols propranolol 40 mg tablet - 00:00: 00 Yes 1mg Kelvin Nichols cyclobenzap rine 5 mg tablet - 00:00: 00 Yes 1mg Kelvin Nichols promethazin e 25 mg tablet - 00:00: 00 Yes 1mg Kelvin Nichols Dose Unknown 0 -29 00:00: 00 Yes Kelvin Nichols ibuprofen 800 mg tablet 0 -19 00:00: 00 Yes 1mg Kelvin Nichols Odefsey 200 mg-25 mg-25 mg tablet -19 00:00: 00 Yes 1mg Kelvin Nichols sulfamethox azole 400 mg-trimetho prim 80 mg tablet 0 5-19 00:00: 00 Yes 1mg Kelvin Nichols propranolol 40 mg tablet 0 5-19 00:00: 00 Yes 1mg Kelvin Nichols cyclobenzap rine 5 mg tablet 0 5-19 00:00: 00 Yes 1mg Kelvin Nichols promethazin e 25 mg tablet 0 5-19 00:00: 00 Yes 1mg Kelvin Nichols hydroxyzine pamoate 50 mg capsule 0 5-19 00:00: 00 Yes 1mg Kelvin Nichols propranolol 40 mg tablet 0 3-02 00:00: 00 Yes 1mg Kelvin Nichols ibuprofen 800 mg tablet 0 2-19 00:00: 00 Yes 1mg Kelvin Nichols Odefsey 200 mg-25 mg-25 mg tablet 0 2-19 00:00: 00 Yes 1mg Kelvin Nichols sulfamethox azole 400 mg-trimetho prim 80 mg tablet 0 2-19 00:00: 00 Yes 1mg Kelvin Nichols propranolol 40 mg tablet 0 2-19 00:00: 00 Yes 1mg Kelvin Nichols cyclobenzap rine 5 mg tablet 0 2-19 00:00: 00 Yes 1mg Kelvin Nichols promethazin e 25 mg tablet 0 2-19 00:00: 00 Yes 1mg Kelvin Nichols hydroxyzine pamoate 50 mg capsule 0 2-19 00:00: 00 Yes 1mg Kelvin Nichols propranolol 40 mg tablet 2018-08 210 00:00: 00 Yes 1mg Kelvin Nichols ibuprofen 800 mg tablet 2018-08 00:00: 00 Yes 1mg Kelvin Nichols hydroxyzine pamoate 50 mg capsule 2018-08 024 00:00: 00 Yes 1mg Kelvin Nichols Odefsey 200 mg-25 mg-25 mg tablet 2018-08 0 00:00: 00 Yes 1mg Kelvin Nichols sulfamethox azole 400 mg-trimetho prim 80 mg tablet 2018-08 0 00:00: 00 Yes 1mg Kelvin Nichols propranolol 40 mg tablet 2018-08 00:00: 00 Yes 1mg Kelvin Nichols cyclobenzap rine 5 mg tablet 2018-08 00:00: 00 Yes 1mg Kelvin Nichols Dose Unknown 2018-08 0 00:00: 00 Yes Kelvin Nichols promethazin e 25 mg tablet 2018-08 00:00: 00 Yes 1mg Kelvin Nichols hydroxyzine pamoate 50 mg capsule 2018-08 00:00: 00 Yes 1mg Kelvin Nichols Dose Unknown 03-16 00:00: 00 Yes Kelvin Nichols sulfamethox azole 400 mg-trimetho prim 80 mg tablet 03-16 00:00: 00 Yes 1mg Kelvin Nichols cyclobenzap rine 5 mg tablet 03-16 00:00: 00 Yes 1mg Kelvin Nichols propranolol 40 mg tablet 03-16 00:00: 00 Yes 1mg Kelvin Nichols ibuprofen 800 mg tablet 03-16 00:00: 00 Yes 1mg Kelvin Nichols promethazin e 25 mg tablet 03-16 00:00: 00 Yes 1mg Kelvin Nichols hydroxyzine pamoate 50 mg capsule 03-16 00:00: 00 Yes 1mg Kelvin Nichols sulfamethox azole 400 mg-trimetho prim 80 mg tablet 02-23 00:00: 00 Yes 1mg Kelvin Nichols sertraline 100 mg tablet 02-23 00:00: 00 Yes 2mg Kelvin Nichols propranolol 40 mg tablet 02-23 00:00: 00 Yes 1mg Kelvin Nichols hydroxyzine pamoate 50 mg capsule 01-12 00:00: 00 Yes 1mg Kelvin Nichols ibuprofen 800 mg tablet 12-29 00:00: 00 Yes 1mg Kelvin Nichols promethazin e 25 mg tablet 12-29 00:00: 00 Yes 1mg Kelvin Nichlos clindamycin HCl 150 mg capsule 12-29 00:00: 00 Yes 1mg Kelvin Nichols sulfamethox azole 400 mg-trimetho prim 80 mg tablet 11-11 00:00: 00 Yes 1mg Kelvin Nichols sertraline 100 mg tablet 11-11 00:00: 00 Yes 2mg Kelvin Nichols propranolol 40 mg tablet 11-11 00:00: 00 Yes 1mg Kelvin Nichols ibuprofen 800 mg tablet 11-11 00:00: 00 Yes 1mg Kelvin Nichols promethazin e 25 mg tablet 11-03 00:00: 00 Yes 1mg Kelvin Nichols sulfamethox azole 400 mg-trimetho prim 80 mg tablet 12 00:00: 00 Yes 1mg Kelvin Nichols promethazin e 25 mg tablet 09-06 00:00: 00 Yes 1mg Kelvin Nichols Tylenol-Cod eine #4 300 mg-60 mg tablet 09-06 00:00: 00 Yes 1mg Kelvin Nichols propranolol 40 mg tablet 09-06 00:00: 00 Yes 1mg Kelvin Nichols sertraline 100 mg tablet 09-06 00:00: 00 Yes 2mg Kelvin Nichols PROMETHAZIN E 25 mg tablet 03-12 00:00: 00 03-18 00:00 :00 No TAKE 1 TABLET EVERY 8 HOURS NEEDED FOR NAUSEA [facility] ODEFSEY 200-25-25 mg Tab 02-08 00:00: 00 03-18 00:00 :00 No 1{tbl} TAKE 1 TABLET BY MOUTH DAILY. PLEASE KEEP APPT [facility] acetaminoph en-codeine 300-60 mg tablet 19 00:00: 00 03-18 00:00 :00 No TAKE ONE TO TWO TABLETS BY MOUTH EVERY 8 HOURS NEEDED FOR PAIN [facility] mirtazapine 30 mg tablet 10-19 00:00: 00 03-23 00:00 :00 No 30mg Take 1 tablet by mouth at bedtime. [facility] SERTraline 100 mg tablet 10-19 00:00: 00 03-18 00:00 :00 No [id number] 200mg Take 2 tablets by mouth daily. [facility] cyclobenzap rine 10 mg tablet 09-04 00:00: 00 03-18 00:00 :00 No 10mg Take 1 tablet by mouth 3 (three) times daily. [facility] propranolol 40 mg tablet 2016-08 00:00: 00 03-23 00:00 :00 No 40mg Take 1 tablet by mouth 2 (two) times daily. [facility] DRONABINOL 5 mg capsule 2016-08 2-04 00:00: 00 03-18 00:00 :00 No TAKE ONE CAPSULE BY MOUTH TWICE DAILY NEEDED FOR NAUSEA [facility] cyclobenzap rine 10 mg tablet 2016-08 0-03 00:00: 00 03-18 00:00 :00 No 10mg Take 1 tablet by mouth 3 (three) times daily. [facility] valACYclovi r (VALTREX) 500 mg tablet 04-20 00:00: 00 03-18 00:00 :00 No [id number] 500mg Take 1 tablet by mouth 2 (two) times daily. [facility] doxycycline 100 mg capsule 04-20 00:00: 00 03-18 00:00 :00 No [id number] 100mg Take 1 capsule by mouth 2 (two) times daily. Start 2 days before surgery on Apr 28, 2017. [facility] mupirocin 2 % ointment 04-20 00:00: 00 03-18 00:00 :00 No [id number] Apply to area(s) daily. [facility] clonazePAM 1 mg tablet 04-02 00:00: 00 03-18 00:00 :00 No 1mg Take 1 tablet by mouth 3 (three) times daily. [facility] cyclobenzap rine 10 mg tablet 03-18 00:00: 00 03-18 00:00 :00 No 1 po TID prn muscle spasm [facility] lidocaine (LIDODERM) 5 % (700 mg/patch) patch 11-28 00:00: 00 03-18 00:00 :00 No Apply one patch as directed up to 12 hrs in one day [facility] sulfamethox azole-trime thoprim (BACTRIM DS) 800-160 mg tablet 12-11 00:00: 00 03-18 00:00 :00 No 1{tbl} Take 1 Tab by mouth daily. [facility] Aspirin 81 mg CpDR 01-01 00:00: 00 03-18 00:00 :00 No Take by mouth daily. [facility] Immunizations Ordered Immunization Name Filled Immunization Name Date Status Comments Source SARS-COV-2 COVID 19 THERESE SUCROSE VACCINE 12+, 0.3 ML (30 MCG), IM PFIZER (SHAH TOP) 2024-09-16 00:00:00 Completed [facility] Tdap Tdap 2023-05-04 00:00:00 Completed [facility] Comirnaty 12+ ( Formula) Comirnaty 12+ ( Formula) 2023-05-04 00:00:00 Completed [facility] SHINGRIX VACCINE SHINGRIX VACCINE 2023-04-21 00:00:00 Eleuterio Nichols Influenza, injectable, Madin Monalisa Canine Kidney, preservative-free, quadrivalent Influenza, injectable, Madin Monalisa Canine Kidney, preservative-free, quadrivalent 2023-04-15 00:00:00 Completed [facility] RSV Recombinant, Arexvy 0.5ML RSV Recombinant, Arexvy 0.5ML 2023-04-15 00:00:00 Completed [facility] Prevnar 20 Prevnar 20 2023-03-03 00:00:00 Completed Kelvin Nichols (Old) Pfizer-BioNTech COVID-19 Vaccine Bivalent Booster 12 years and older (SHAH CAP) (Therese-sucrose formulation) (Old) Pfizer-BioNTech COVID-19 Vaccine Bivalent Booster 12 years and older (SHAH CAP) (Therese-sucrose formulation) 2022-06-13 00:00:00 Eleuterio Nichols Influenza Virus Vaccine,quad Im,preserve Free 65+ (FLUAD) 2022-05-27 00:00:00 Completed Influenza Virus Vaccine,quad Im,preserve Free 65+ (FLUAD) 2022-05-27 00:00:00 Completed Influenza Virus Vaccine,quad Im,preserve Free 65+ 2022-05-27 00:00:00 Completed [facility] Influenza Virus Vaccine,quad Im,preserve Free 65+ 2022-05-27 00:00:00 Completed [facility] Influenza Virus Vaccine,quad Im,preserve Free 65+ 2022-05-27 00:00:00 Completed [facility] Influenza Virus Vaccine,quad Im,preserve Free 65+ 2022-05-27 00:00:00 Completed [facility] Influenza Virus Vaccine,quad Im,preserve Free 65+ (FLUAD) 2022-05-27 00:00:00 Completed [facility] influenza, seasonal vaccine, quadrivalent, adjuvanted, .5mL dose, preservative-free influenza, seasonal vaccine, quadrivalent, adjuvanted, .5mL dose, preservative-free 2022-05-27 00:00:00 Completed [facility] SARS-COV-2 COVID-19 PFIZER THERESE-SUCROSE VACCINE (SHAH TOP) 2021-11-22 00:00:00 Completed SARS-COV-2 COVID-19 PFIZER THERESE-SUCROSE VACCINE (SHAH TOP) 2021-11-22 00:00:00 Completed SARS-COV-2 COVID-19 PFIZER THERESE-SUCROSE VACCINE (SHAH TOP) 2021-11-22 00:00:00 Completed [facility] SARS-COV-2 COVID-19 PFIZER THERESE-SUCROSE VACCINE (SHAH TOP) 2021-11-22 00:00:00 Completed [facility] SARS-COV-2 COVID-19 PFIZER THERESE-SUCROSE VACCINE (SHAH TOP) 2021-11-22 00:00:00 Completed [facility] SARS-COV-2 COVID-19 PFIZER THERESE-SUCROSE VACCINE (SHAH TOP) 2021-11-22 00:00:00 Completed [facility] SARS-COV-2 COVID-19 PFIZER THERESE-SUCROSE VACCINE (SHAH TOP) 2021-11-22 00:00:00 Completed [facility] SARS-COV-2 COVID-19 VACCINE - (MODERNA) 2021-05-28 00:00:00 Completed SARS-COV-2 COVID-19 VACCINE - (MODERNA) 2021-05-28 00:00:00 Completed SARS-COV-2 COVID-19 VACCINE - (MODERNA) 2021-05-28 00:00:00 Completed [facility] SARS-COV-2 COVID-19 VACCINE - (MODERNA) 2021-05-28 00:00:00 Completed [facility] SARS-COV-2 COVID-19 VACCINE - (MODERNA) 2021-05-28 00:00:00 Completed [facility] SARS-COV-2 COVID-19 VACCINE - (MODERNA) 2021-05-28 00:00:00 Completed [facility] SARS-COV-2 COVID-19 VACCINE - (MODERNA) 2021-05-28 00:00:00 Completed [facility] Moderna COVID-19 Vaccine Moderna COVID-19 Vaccine 2021-05-28 00:00:00 Completed [facility] Pneumococcal 13 Conjugate, PCV13 (Prevnar 13) 2015-07-11 00:00:00 Completed [facility] Pneumococcal 13 Conjugate, PCV13 (Prevnar 13) 2015-07-11 00:00:00 Completed [facility] Pneumococcal 13 Conjugate, PCV13 (Prevnar 13) 2015-07-11 00:00:00 Completed [facility] Pneumococcal 13 Conjugate, PCV13 (Prevnar 13) 2015-07-11 00:00:00 Completed [facility] Pneumococcal 13 Conjugate, PCV13 (Prevnar 13) 2015-07-11 00:00:00 Completed [facility] Pneumococcal 13 Conjugate, PCV13 (Prevnar 13) 2015-07-11 00:00:00 Completed [facility] Pneumococcal 13 Conjugate, PCV13 (Prevnar 13) 2015-07-11 00:00:00 Completed [facility] Pneumococcal 13 Conjugate, PCV13 (Prevnar 13) 2015-07-11 00:00:00 Completed [facility] Pneumococcal 13 Conjugate, PCV13 (Prevnar 13) 2015-07-11 00:00:00 Completed [facility] Pneumococcal 13 Conjugate, PCV13 (Prevnar 13) 2015-07-11 00:00:00 Completed [facility] Pneumococcal 13 Conjugate, PCV13 (Prevnar 13) 2015-07-11 00:00:00 Completed [facility] Pneumococcal 13 Conjugate, PCV13 (Prevnar 13) 2015-07-11 00:00:00 Completed [facility] Influenza Virus Vaccine Quad IM 3+ YRS 2015-05-21 00:00:00 Completed [facility] Influenza Virus Vaccine Quad IM 3+ YRS 2015-05-21 00:00:00 Completed [facility] Influenza Virus Vaccine Quad IM 3+ YRS 2015-05-21 00:00:00 Completed Influenza Virus Vaccine Quad IM 3+ YRS 2015-05-21 00:00:00 Completed Influenza Virus Vaccine Quad IM 3+ YRS 2015-05-21 00:00:00 Completed [facility] Influenza Virus Vaccine Quad IM 3+ YRS 2015-05-21 00:00:00 Completed [facility] Influenza Virus Vaccine Quad IM 3+ YRS 2015-05-21 00:00:00 Completed [facility] Influenza Virus Vaccine Quad IM 3+ YRS 2015-05-21 00:00:00 Completed [facility] Influenza Virus Vaccine Quad IM 3+ YRS 2015-05-21 00:00:00 Completed [facility] Influenza Virus Vaccine Quad IM 3+ YRS 2015-05-21 00:00:00 Completed [facility] Influenza Virus Vaccine Quad IM 3+ YRS 2015-05-21 00:00:00 Completed [facility] Influenza Virus Vaccine Quad IM 3+ YRS 2015-05-21 00:00:00 Completed [facility] Influenza Virus Vaccine Quad IM 3+ YRS 2014-06-12 00:00:00 Completed [facility] Influenza Virus Vaccine Quad IM 3+ YRS 2014-06-12 00:00:00 Completed [facility] Influenza Virus Vaccine Quad IM 3+ YRS 2014-06-12 00:00:00 Completed Influenza Virus Vaccine Quad IM 3+ YRS 2014-06-12 00:00:00 Completed Influenza Virus Vaccine Quad IM 3+ YRS 2014-06-12 00:00:00 Completed [facility] Influenza Virus Vaccine Quad IM 3+ YRS 2014-06-12 00:00:00 Completed [facility] Influenza Virus Vaccine Quad IM 3+ YRS 2014-06-12 00:00:00 Completed [facility] Influenza Virus Vaccine Quad IM 3+ YRS 2014-06-12 00:00:00 Completed [facility] Influenza Virus Vaccine Quad IM 3+ YRS 2014-06-12 00:00:00 Completed [facility] Influenza Virus Vaccine Quad IM 3+ YRS 2014-06-12 00:00:00 Completed [facility] Influenza Virus Vaccine Quad IM 3+ YRS 2014-06-12 00:00:00 Completed [facility] Influenza Virus Vaccine Quad IM 3+ YRS 2014-06-12 00:00:00 Completed [facility] TDAP (ADACEL) VACCINE 2012-12-03 00:00:00 Completed [facility] Pneumococcal Polysaccharide, PPSV23 (PNEUMOVAX) 2012-12-03 00:00:00 Completed [facility] TDAP (ADACEL) VACCINE 2012-12-03 00:00:00 Completed [facility] Pneumococcal Polysaccharide, PPSV23 (PNEUMOVAX) 2012-12-03 00:00:00 Completed [facility] TDAP (ADACEL) VACCINE 2012-12-03 00:00:00 Completed [facility] Pneumococcal Polysaccharide, PPSV23 (PNEUMOVAX) 2012-12-03 00:00:00 Completed TDAP (ADACEL) VACCINE 2012-12-03 00:00:00 Completed [facility] Pneumococcal Polysaccharide, PPSV23 (PNEUMOVAX) 2012-12-03 00:00:00 Completed TDAP (ADACEL) VACCINE 2012-12-03 00:00:00 Completed [facility] Pneumococcal Polysaccharide, PPSV23 (PNEUMOVAX) 2012-12-03 00:00:00 Completed [facility] TDAP (ADACEL) VACCINE 2012-12-03 00:00:00 Completed [facility] Pneumococcal Polysaccharide, PPSV23 (PNEUMOVAX) 2012-12-03 00:00:00 Completed [facility] TDAP (ADACEL) VACCINE 2012-12-03 00:00:00 Completed [facility] Pneumococcal Polysaccharide, PPSV23 (PNEUMOVAX) 2012-12-03 00:00:00 Completed [facility] TDAP (ADACEL) VACCINE 2012-12-03 00:00:00 Completed [facility] Pneumococcal Polysaccharide, PPSV23 (PNEUMOVAX) 2012-12-03 00:00:00 Completed [facility] TDAP (ADACEL) VACCINE 2012-12-03 00:00:00 Completed [facility] Pneumococcal Polysaccharide, PPSV23 (PNEUMOVAX) 2012-12-03 00:00:00 Completed [facility] TDAP (ADACEL) VACCINE 2012-12-03 00:00:00 Completed [facility] Pneumococcal Polysaccharide, PPSV23 (PNEUMOVAX) 2012-12-03 00:00:00 Completed [facility] TDAP (ADACEL) VACCINE 2012-12-03 00:00:00 Completed [facility] Pneumococcal Polysaccharide, PPSV23 (PNEUMOVAX) 2012-12-03 00:00:00 Completed [facility] TDAP (ADACEL) VACCINE 2012-12-03 00:00:00 Completed [facility] Pneumococcal Polysaccharide, PPSV23 (PNEUMOVAX) 2012-12-03 00:00:00 Completed [facility] Influenza Virus Vaccine 2010-08-07 00:00:00 Completed [facility] PPD (TB) 2010-08-07 00:00:00 Completed [facility] Influenza Virus Vaccine 2010-08-07 00:00:00 Completed [facility] PPD (TB) 2010-08-07 00:00:00 Completed [facility] Influenza Virus Vaccine 2010-08-07 00:00:00 Completed [facility] PPD (TB) 2010-08-07 00:00:00 Completed Influenza Virus Vaccine 2010-08-07 00:00:00 Completed [facility] PPD (TB) 2010-08-07 00:00:00 Completed Influenza Virus Vaccine 2010-08-07 00:00:00 Completed [facility] PPD (TB) 2010-08-07 00:00:00 Completed [facility] Influenza Virus Vaccine 2010-08-07 00:00:00 Completed [facility] PPD (TB) 2010-08-07 00:00:00 Completed [facility] Influenza Virus Vaccine 2010-08-07 00:00:00 Completed [facility] PPD (TB) 2010-08-07 00:00:00 Completed [facility] Influenza Virus Vaccine 2010-08-07 00:00:00 Completed [facility] PPD (TB) 2010-08-07 00:00:00 Completed [facility] Influenza Virus Vaccine 2010-08-07 00:00:00 Completed [facility] PPD (TB) 2010-08-07 00:00:00 Completed [facility] Influenza Virus Vaccine 2010-08-07 00:00:00 Completed [facility] PPD (TB) 2010-08-07 00:00:00 Completed [facility] Influenza Virus Vaccine 2010-08-07 00:00:00 Completed [facility] PPD (TB) 2010-08-07 00:00:00 Completed [facility] Influenza Virus Vaccine 2010-08-07 00:00:00 Completed [facility] PPD (TB) 2010-08-07 00:00:00 Completed [facility] H1n1 Vaccine 2009-07-18 00:00:00 Completed [facility] H1n1 Vaccine 2009-07-18 00:00:00 Completed [facility] H1n1 Vaccine 2009-07-18 00:00:00 Completed [facility] H1n1 Vaccine 2009-07-18 00:00:00 Completed [facility] H1n1 Vaccine 2009-07-18 00:00:00 Completed [facility] H1n1 Vaccine 2009-07-18 00:00:00 Completed [facility] H1n1 Vaccine 2009-07-18 00:00:00 Completed [facility] H1n1 Vaccine 2009-07-18 00:00:00 Completed [facility] H1n1 Vaccine 2009-07-18 00:00:00 Completed [facility] H1n1 Vaccine 2009-07-18 00:00:00 Completed [facility] H1n1 Vaccine 2009-07-18 00:00:00 Completed [facility] H1n1 Vaccine 2009-07-18 00:00:00 Completed [facility] Influenza Virus Vaccine 2009-05-23 00:00:00 Completed [facility] Influenza Virus Vaccine 2009-05-23 00:00:00 Completed [facility] Influenza Virus Vaccine 2009-05-23 00:00:00 Completed [facility] Influenza Virus Vaccine 2009-05-23 00:00:00 Completed [facility] Influenza Virus Vaccine 2009-05-23 00:00:00 Completed [facility] Influenza Virus Vaccine 2009-05-23 00:00:00 Completed [facility] Influenza Virus Vaccine 2009-05-23 00:00:00 Completed [facility] Influenza Virus Vaccine 2009-05-23 00:00:00 Completed [facility] Influenza Virus Vaccine 2009-05-23 00:00:00 Completed [facility] Influenza Virus Vaccine 2009-05-23 00:00:00 Completed [facility] Influenza Virus Vaccine 2009-05-23 00:00:00 Completed [facility] Influenza Virus Vaccine 2009-05-23 00:00:00 Completed [facility] Pneumococcal Polysaccharide, PPSV23 (PNEUMOVAX) 1997-01-13 00:00:00 Completed [facility] Pneumococcal Polysaccharide, PPSV23 (PNEUMOVAX) 1997-01-13 00:00:00 Completed [facility] Pneumococcal Polysaccharide, PPSV23 (PNEUMOVAX) 1997-01-13 00:00:00 Completed Pneumococcal Polysaccharide, PPSV23 (PNEUMOVAX) 1997-01-13 00:00:00 Completed Pneumococcal Polysaccharide, PPSV23 (PNEUMOVAX) 1997-01-13 00:00:00 Completed [facility] Pneumococcal Polysaccharide, PPSV23 (PNEUMOVAX) 1997-01-13 00:00:00 Completed [facility] Pneumococcal Polysaccharide, PPSV23 (PNEUMOVAX) 1997-01-13 00:00:00 Completed [facility] Pneumococcal Polysaccharide, PPSV23 (PNEUMOVAX) 1997-01-13 00:00:00 Completed [facility] Pneumococcal Polysaccharide, PPSV23 (PNEUMOVAX) 1997-01-13 00:00:00 Completed [facility] Pneumococcal Polysaccharide, PPSV23 (PNEUMOVAX) 1997-01-13 00:00:00 Completed [facility] Pneumococcal Polysaccharide, PPSV23 (PNEUMOVAX) 1997-01-13 00:00:00 Completed [facility] Pneumococcal Polysaccharide, PPSV23 (PNEUMOVAX) 1997-01-13 00:00:00 Completed [facility] H1n1 Vaccine Unknown Completed [facility] Influenza Virus Vaccine Unknown Completed [facility] PPD (TB) Unknown Completed [facility] TDAP (ADACEL) VACCINE Unknown Completed [facility] Pneumococcal Polysaccharide, PPSV23 (PNEUMOVAX) Unknown Completed [facility] Influenza Virus Vaccine Quad IM 3+ YRS Unknown Completed [facility] Pneumococcal 13 Conjugate, PCV13 (Prevnar 13) Unknown Completed [facility] SARS-COV-2 COVID-19 VACCINE - (MODERNA) Unknown Completed [facility] SARS-COV-2 COVID-19 PFIZER THERESE-SUCROSE VACCINE (SHAH TOP) Unknown Completed [facility] Influenza Virus Vaccine,quad Im,preserve Free 65+ (FLUAD) Unknown Completed [facility] Influenza Virus Vaccine Unknown Completed [facility] Pneumococcal Polysaccharide, PPSV23 (PNEUMOVAX) Unknown Completed [facility] H1n1 Vaccine Unknown Completed [facility] PPD (TB) Unknown Completed [facility] TDAP (ADACEL) VACCINE Unknown Completed [facility] Influenza Virus Vaccine Quad IM 3+ YRS Unknown Completed [facility] Pneumococcal 13 Conjugate, PCV13 (Prevnar 13) Unknown Completed [facility] SARS-COV-2 COVID-19 VACCINE - (MODERNA) Unknown [facility] SARS-COV-2 COVID-19 PFIZER THERESE-SUCROSE VACCINE (SHAH TOP) Unknown Completed [facility] Influenza Virus Vaccine,quad Im,preserve Free 65+ (FLUAD) Unknown Completed [facility] Influenza Virus Vaccine Unknown Completed [facility] Pneumococcal Polysaccharide, PPSV23 (PNEUMOVAX) Unknown Completed [facility] H1n1 Vaccine Unknown Completed [facility] PPD (TB) Unknown Completed [facility] TDAP (ADACEL) VACCINE Unknown Completed [facility] Influenza Virus Vaccine Quad IM 3+ YRS Unknown Completed [facility] Pneumococcal 13 Conjugate, PCV13 (Prevnar 13) Unknown Completed [facility] SARS-COV-2 COVID-19 VACCINE - (MODERNA) Unknown Completed [facility] SARS-COV-2 COVID-19 PFIZER THERESE-SUCROSE VACCINE (SHAH TOP) Unknown Completed [facility] Influenza Virus Vaccine,quad Im,preserve Free 65+ (FLUAD) Unknown Completed [facility] Influenza Virus Vaccine Unknown Completed [facility] Pneumococcal Polysaccharide, PPSV23 (PNEUMOVAX) Unknown Completed [facility] H1n1 Vaccine Unknown Completed [facility] PPD (TB) Unknown Completed [facility] TDAP (ADACEL) VACCINE Unknown Completed [facility] Influenza Virus Vaccine Quad IM 3+ YRS Unknown Completed [facility] Pneumococcal 13 Conjugate, PCV13 (Prevnar 13) Unknown Completed [facility] SARS-COV-2 COVID-19 VACCINE - (MODERNA) Unknown Completed [facility] SARS-COV-2 COVID-19 PFIZER THERESE-SUCROSE VACCINE (SHAH TOP) Unknown Completed [facility] Influenza Virus Vaccine,quad Im,preserve Free 65+ (FLUAD) Unknown Completed [facility] Influenza Virus Vaccine Unknown Completed [facility] Pneumococcal Polysaccharide, PPSV23 (PNEUMOVAX) Unknown [facility] PPD (TB) Unknown Completed [facility] TDAP (ADACEL) VACCINE Unknown Completed [facility] Influenza Virus Vaccine Quad IM 3+ YRS Unknown Completed [facility] Pneumococcal 13 Conjugate, PCV13 (Prevnar 13) Unknown Completed [facility] SARS-COV-2 COVID-19 VACCINE - (MODERNA) Unknown Completed [facility] SARS-COV-2 COVID-19 PFIZER THERESE-SUCROSE VACCINE (SHAH TOP) Unknown Completed [facility] Influenza Virus Vaccine,quad Im,preserve Free 65+ (FLUAD) Unknown Completed [facility] Influenza Virus Vaccine Unknown Completed [facility] Pneumococcal Polysaccharide, PPSV23 (PNEUMOVAX) Unknown Completed [facility] H1n1 Vaccine Unknown Completed [facility] PPD (TB) Unknown Completed [facility] TDAP (ADACEL) VACCINE Unknown Completed [facility] Influenza Virus Vaccine Quad IM 3+ YRS Unknown Completed [facility] Pneumococcal 13 Conjugate, PCV13 (Prevnar 13) Unknown Completed [facility] SARS-COV-2 COVID-19 VACCINE - (MODERNA) Unknown Completed [facility] SARS-COV-2 COVID-19 PFIZER THERESE-SUCROSE VACCINE (SHAH TOP) Unknown Completed [facility] Influenza Virus Vaccine,quad Im,preserve Free 65+ (FLUAD) Unknown Completed [facility] Influenza Virus Vaccine Unknown Completed [facility] Pneumococcal Polysaccharide, PPSV23 (PNEUMOVAX) Unknown Completed [facility] H1n1 Vaccine Unknown Completed [facility] PPD (TB) Unknown Completed [facility] TDAP (ADACEL) VACCINE Unknown Completed [facility] Influenza Virus Vaccine Quad IM 3+ YRS Unknown Completed [facility] Pneumococcal 13 Conjugate, PCV13 (Prevnar 13) Unknown Completed [facility] SARS-COV-2 COVID-19 VACCINE - (MODERNA) Unknown Completed [facility] SARS-COV-2 COVID-19 PFIZER THERESE-SUCROSE VACCINE (SHAH TOP) Unknown Completed [facility] Influenza Virus Vaccine,quad Im,preserve Free 65+ (FLUAD) Unknown Completed [facility] Influenza Virus Vaccine Unknown Completed [facility] Pneumococcal Polysaccharide, PPSV23 (PNEUMOVAX) Unknown Completed [facility] H1n1 Vaccine Unknown Completed [facility] PPD (TB) Unknown Completed [facility] TDAP (ADACEL) VACCINE Unknown Completed [facility] Influenza Virus Vaccine Quad IM 3+ YRS Unknown Completed [facility] Pneumococcal 13 Conjugate, PCV13 (Prevnar 13) Unknown Completed [facility] SARS-COV-2 COVID-19 VACCINE - (MODERNA) Unknown Completed [facility] SARS-COV-2 COVID-19 PFIZER THERESE-SUCROSE VACCINE (SHAH TOP) Unknown Completed [facility] Influenza Virus Vaccine,quad Im,preserve Free 65+ (FLUAD) Unknown Completed [facility] H1n1 Vaccine Unknown Completed [facility] PPD (TB) Unknown Completed [facility] TDAP (ADACEL) VACCINE Unknown Completed [facility] Pneumococcal 13 Conjugate, PCV13 (Prevnar 13) Unknown Completed [facility] SARS-COV-2 COVID-19 VACCINE - (MODERNA) Unknown Completed [facility] SARS-COV-2 COVID-19 PFIZER THERESE-SUCROSE VACCINE (SHAH TOP) Unknown Completed [facility] Influenza Virus Vaccine,quad Im,preserve Free 65+ (FLUAD) Unknown Completed [facility] Influenza Virus Vaccine Unknown Completed [facility] Pneumococcal Polysaccharide, PPSV23 (PNEUMOVAX) Unknown Completed [facility] Influenza Virus Vaccine Quad IM 3+ YRS Unknown Completed [facility] Influenza Virus Vaccine Unknown Completed [facility] Pneumococcal Polysaccharide, PPSV23 (PNEUMOVAX) Unknown Completed [facility] H1n1 Vaccine Unknown Completed [facility] PPD (TB) Unknown Completed [facility] TDAP (ADACEL) VACCINE Unknown Completed [facility] Influenza Virus Vaccine Quad IM 3+ YRS Unknown Completed [facility] Pneumococcal 13 Conjugate, PCV13 (Prevnar 13) Unknown Completed [facility] SARS-COV-2 COVID-19 VACCINE - (MODERNA) Unknown Completed [facility] SARS-COV-2 COVID-19 PFIZER THERESE-SUCROSE VACCINE (SHAH TOP) Unknown Completed [facility] Influenza Virus Vaccine,quad Im,preserve Free 65+ (FLUAD) Unknown Completed [facility] Influenza Virus Vaccine Unknown Completed [facility] Pneumococcal Polysaccharide, PPSV23 (PNEUMOVAX) Unknown Completed [facility] H1n1 Vaccine Unknown Completed [facility] PPD (TB) Unknown Completed [facility] TDAP (ADACEL) VACCINE Unknown Completed [facility] Influenza Virus Vaccine Quad IM 3+ YRS Unknown Completed [facility] Pneumococcal 13 Conjugate, PCV13 (Prevnar 13) Unknown Completed [facility] SARS-COV-2 COVID-19 VACCINE - (MODERNA) Unknown [facility] SARS-COV-2 COVID-19 PFIZER THERESE-SUCROSE VACCINE (SHAH TOP) Unknown Completed [facility] Influenza Virus Vaccine,quad Im,preserve Free 65+ (FLUAD) Unknown Completed [facility] Influenza Virus Vaccine Unknown Completed [facility] Pneumococcal Polysaccharide, PPSV23 (PNEUMOVAX) Unknown Completed [facility] H1n1 Vaccine Unknown Completed [facility] PPD (TB) Unknown Completed [facility] TDAP (ADACEL) VACCINE Unknown Completed [facility] Influenza Virus Vaccine Quad IM 3+ YRS Unknown Completed [facility] Pneumococcal 13 Conjugate, PCV13 (Prevnar 13) Unknown Completed [facility] SARS-COV-2 COVID-19 VACCINE - (MODERNA) Unknown Completed [facility] SARS-COV-2 COVID-19 PFIZER THERESE-SUCROSE VACCINE (SHAH TOP) Unknown Completed [facility] Influenza Virus Vaccine,quad Im,preserve Free 65+ (FLUAD) Unknown Completed [facility] Influenza Virus Vaccine Unknown Completed [facility] Pneumococcal Polysaccharide, PPSV23 (PNEUMOVAX) Unknown Completed [facility] H1n1 Vaccine Unknown Completed [facility] PPD (TB) Unknown Completed [facility] TDAP (ADACEL) VACCINE Unknown Completed [facility] Influenza Virus Vaccine Quad IM 3+ YRS Unknown Completed [facility] Pneumococcal 13 Conjugate, PCV13 (Prevnar 13) Unknown Completed [facility] SARS-COV-2 COVID-19 VACCINE - (MODERNA) Unknown Completed [facility] SARS-COV-2 COVID-19 PFIZER THERESE-SUCROSE VACCINE (SHAH TOP) Unknown [facility],quad Im,preserve Free 65+ (FLUAD) Unknown Completed [facility] Influenza Virus Vaccine Unknown Completed [facility] Pneumococcal Polysaccharide, PPSV23 (PNEUMOVAX) Unknown Completed [facility] H1n1 Vaccine Unknown Completed [facility] PPD (TB) Unknown Completed [facility] TDAP (ADACEL) VACCINE Unknown Completed [facility] Influenza Virus Vaccine Quad IM 3+ YRS Unknown Completed [facility] Pneumococcal 13 Conjugate, PCV13 (Prevnar 13) Unknown Completed [facility] SARS-COV-2 COVID-19 VACCINE - (MODERNA) Unknown Completed [facility] SARS-COV-2 COVID-19 PFIZER THERESE-SUCROSE VACCINE (SHAH TOP) Unknown Completed [facility] Influenza Virus Vaccine,quad Im,preserve Free 65+ (FLUAD) Unknown Completed [facility] Influenza Virus Vaccine Unknown Completed [facility] Pneumococcal Polysaccharide, PPSV23 (PNEUMOVAX) Unknown Completed [facility] H1n1 Vaccine Unknown Completed [facility] PPD (TB) Unknown Completed [facility] TDAP (ADACEL) VACCINE Unknown Completed [facility] Influenza Virus Vaccine Quad IM 3+ YRS Unknown Completed [facility] Pneumococcal 13 Conjugate, PCV13 (Prevnar 13) Unknown Completed [facility] SARS-COV-2 COVID-19 VACCINE - (MODERNA) Unknown Completed [facility] SARS-COV-2 COVID-19 PFIZER THERESE-SUCROSE VACCINE (SHAH TOP) Unknown Completed [facility] Influenza Virus Vaccine,quad Im,preserve Free 65+ (FLUAD) Unknown Completed [facility] Influenza Virus Vaccine Unknown Completed [facility] Pneumococcal Polysaccharide, PPSV23 (PNEUMOVAX) Unknown Completed [facility] H1n1 Vaccine Unknown Completed [facility] PPD (TB) Unknown Completed [facility] TDAP (ADACEL) VACCINE Unknown Completed [facility] Influenza Virus Vaccine Quad IM 3+ YRS Unknown Completed [facility] Pneumococcal 13 Conjugate, PCV13 (Prevnar 13) Unknown Completed [facility] SARS-COV-2 COVID-19 VACCINE - (MODERNA) Unknown Completed [facility] SARS-COV-2 COVID-19 PFIZER THERESE-SUCROSE VACCINE (SHAH TOP) Unknown [facility] Vaccine,quad Im,preserve Free 65+ (FLUAD) Unknown Completed [facility] Influenza Virus Vaccine Unknown Completed [facility] Pneumococcal Polysaccharide, PPSV23 (PNEUMOVAX) Unknown Completed [facility] H1n1 Vaccine Unknown Completed [facility] PPD (TB) Unknown Completed [facility] TDAP (ADACEL) VACCINE Unknown Completed [facility] Influenza Virus Vaccine Quad IM 3+ YRS Unknown Completed [facility] Pneumococcal 13 Conjugate, PCV13 (Prevnar 13) Unknown Completed [facility] SARS-COV-2 COVID-19 VACCINE - (MODERNA) Unknown Completed [facility] SARS-COV-2 COVID-19 PFIZER THERESE-SUCROSE VACCINE (SHAH TOP) Unknown Completed [facility] Influenza Virus Vaccine,quad Im,preserve Free 65+ (FLUAD) Unknown Completed [facility] Influenza Virus Vaccine Unknown Completed [facility] Pneumococcal Polysaccharide, PPSV23 (PNEUMOVAX) Unknown Completed [facility] H1n1 Vaccine Unknown Completed [facility] PPD (TB) Unknown Completed [facility] TDAP (ADACEL) VACCINE Unknown Completed [facility] Influenza Virus Vaccine Quad IM 3+ YRS Unknown Completed [facility] Pneumococcal 13 Conjugate, PCV13 (Prevnar 13) Unknown Completed [facility] SARS-COV-2 COVID-19 VACCINE - (MODERNA) Unknown Completed [facility] SARS-COV-2 COVID-19 PFIZER THERESE-SUCROSE VACCINE (SHAH TOP) Unknown Completed [facility] Influenza Virus Vaccine,quad Im,preserve Free 65+ (FLUAD) Unknown Completed [facility] Influenza Virus Vaccine Unknown Completed [facility] Pneumococcal Polysaccharide, PPSV23 (PNEUMOVAX) Unknown Completed [facility] H1n1 Vaccine Unknown Completed [facility] PPD (TB) Unknown Completed [facility] TDAP (ADACEL) VACCINE Unknown Completed [facility] Influenza Virus Vaccine Quad IM 3+ YRS Unknown Completed [facility] Pneumococcal 13 Conjugate, PCV13 (Prevnar 13) Unknown Completed [facility] SARS-COV-2 COVID-19 VACCINE - (MODERNA) Unknown Completed [facility] SARS-COV-2 COVID-19 PFIZER THERESE-SUCROSE VACCINE (SHAH TOP) Unknown Completed [facility] Influenza Virus Vaccine,quad Im,preserve Free 65+ (FLUAD) Unknown Completed [facility] Influenza Virus Vaccine Unknown Completed [facility] Pneumococcal Polysaccharide, PPSV23 (PNEUMOVAX) Unknown Completed [facility] H1n1 Vaccine Unknown Completed [facility] PPD (TB) Unknown Completed [facility] TDAP (ADACEL) VACCINE Unknown Completed [facility] Influenza Virus Vaccine Quad IM 3+ YRS Unknown Completed [facility] Pneumococcal 13 Conjugate, PCV13 (Prevnar 13) Unknown Completed [facility] SARS-COV-2 COVID-19 VACCINE - (MODERNA) Unknown Completed [facility] SARS-COV-2 COVID-19 PFIZER THERESE-SUCROSE VACCINE (SHAH TOP) Unknown Completed [facility] Influenza Virus Vaccine,quad Im,preserve Free 65+ (FLUAD) Unknown Completed [facility] Influenza Virus Vaccine Unknown Completed [facility] Pneumococcal Polysaccharide, PPSV23 (PNEUMOVAX) Unknown Completed [facility] H1n1 Vaccine Unknown Completed [facility] PPD (TB) Unknown Completed [facility] TDAP (ADACEL) VACCINE Unknown Completed [facility] Influenza Virus Vaccine Quad IM 3+ YRS Unknown Completed [facility] Pneumococcal 13 Conjugate, PCV13 (Prevnar 13) Unknown Completed [facility] SARS-COV-2 COVID-19 VACCINE - (MODERNA) Unknown Completed [facility] SARS-COV-2 COVID-19 PFIZER THERESE-SUCROSE VACCINE (SHAH TOP) Unknown Completed [facility] Influenza Virus Vaccine,quad Im,preserve Free 65+ (FLUAD) Unknown Completed [facility] Influenza Virus Vaccine Unknown Completed [facility] Pneumococcal Polysaccharide, PPSV23 (PNEUMOVAX) Unknown Completed [facility] H1n1 Vaccine Unknown Completed [facility] PPD (TB) Unknown Completed [facility] TDAP (ADACEL) VACCINE Unknown Completed [facility] Influenza Virus Vaccine Quad IM 3+ YRS Unknown Completed [facility] Pneumococcal 13 Conjugate, PCV13 (Prevnar 13) Unknown Completed [facility] SARS-COV-2 COVID-19 VACCINE - (MODERNA) Unknown Completed [facility] SARS-COV-2 COVID-19 PFIZER THERESE-SUCROSE VACCINE (SHAH TOP) Unknown Completed [facility] Influenza Virus Vaccine,quad Im,preserve Free 65+ (FLUAD) Unknown Completed [facility] Influenza Virus Vaccine Unknown Completed [facility] Pneumococcal Polysaccharide, PPSV23 (PNEUMOVAX) Unknown Completed [facility] H1n1 Vaccine Unknown Completed [facility] PPD (TB) Unknown Completed [facility] TDAP (ADACEL) VACCINE Unknown Completed [facility] Influenza Virus Vaccine Quad IM 3+ YRS Unknown Completed [facility] Pneumococcal 13 Conjugate, PCV13 (Prevnar 13) Unknown Completed [facility] SARS-COV-2 COVID-19 VACCINE - (MODERNA) Unknown Completed [facility] SARS-COV-2 COVID-19 PFIZER THERESE-SUCROSE VACCINE (SHAH TOP) Unknown Completed [facility] Influenza Virus Vaccine,quad Im,preserve Free 65+ (FLUAD) Unknown Completed [facility] Influenza Virus Vaccine Unknown Completed [facility] Pneumococcal Polysaccharide, PPSV23 (PNEUMOVAX) Unknown Completed [facility] H1n1 Vaccine Unknown Completed [facility] PPD (TB) Unknown Completed [facility] TDAP (ADACEL) VACCINE Unknown Completed [facility] Influenza Virus Vaccine Quad IM 3+ YRS Unknown Completed [facility] Pneumococcal 13 Conjugate, PCV13 (Prevnar 13) Unknown Completed [facility] SARS-COV-2 COVID-19 VACCINE - (MODERNA) Unknown Completed [facility] SARS-COV-2 COVID-19 PFIZER THERESE-SUCROSE VACCINE (SHAH TOP) Unknown Completed [facility] Influenza Virus Vaccine,quad Im,preserve Free 65+ (FLUAD) Unknown Completed [facility] Influenza Virus Vaccine Unknown Completed [facility] Pneumococcal Polysaccharide, PPSV23 (PNEUMOVAX) Unknown Completed [facility] H1n1 Vaccine Unknown Completed [facility] PPD (TB) Unknown Completed [facility] TDAP (ADACEL) VACCINE Unknown Completed [facility] Influenza Virus Vaccine Quad IM 3+ YRS Unknown Completed [facility] Pneumococcal 13 Conjugate, PCV13 (Prevnar 13) Unknown Completed [facility] SARS-COV-2 COVID-19 VACCINE - (MODERNA) Unknown Completed [facility] SARS-COV-2 COVID-19 PFIZER THERESE-SUCROSE VACCINE (SHAH TOP) Unknown [facility] Vaccine,quad Im,preserve Free 65+ (FLUAD) Unknown Completed [facility] Influenza Virus Vaccine Unknown Completed [facility] Pneumococcal Polysaccharide, PPSV23 (PNEUMOVAX) Unknown [facility]ine [facility] Completed [facility] PPD (TB) Unknown Completed [facility] TDAP (ADACEL) VACCINE Unknown Completed [facility] Influenza Virus Vaccine Quad IM 3+ YRS Unknown Completed [facility] Pneumococcal 13 Conjugate, PCV13 (Prevnar 13) Unknown Completed [facility] SARS-COV-2 COVID-19 VACCINE - (MODERNA) Unknown Completed [facility] SARS-COV-2 COVID-19 PFIZER THERESE-SUCROSE VACCINE (SHAH TOP) Unknown Completed [facility] Influenza Virus Vaccine,quad Im,preserve Free 65+ (FLUAD) Unknown Completed [facility] Influenza Virus Vaccine Unknown Completed [facility] Pneumococcal Polysaccharide, PPSV23 (PNEUMOVAX) Unknown Completed [facility] H1n1 Vaccine Unknown Completed [facility] PPD (TB) Unknown Completed [facility] TDAP (ADACEL) VACCINE Unknown Completed [facility] Influenza Virus Vaccine Quad IM 3+ YRS Unknown Completed [facility] Pneumococcal 13 Conjugate, PCV13 (Prevnar 13) Unknown Completed [facility] SARS-COV-2 COVID-19 VACCINE - (MODERNA) [facility] PFIZER THERESE-SUCROSE VACCINE (SHAH TOP) Unknown Completed [facility] Influenza Virus Vaccine,quad Im,preserve Free 65+ (FLUAD) Unknown Completed [facility] Influenza Virus Vaccine Unknown Completed [facility] Pneumococcal Polysaccharide, PPSV23 (PNEUMOVAX) Unknown Completed [facility] H1n1 Vaccine Unknown Completed [facility] PPD (TB) Unknown Completed [facility] TDAP (ADACEL) VACCINE Unknown Completed [facility] Influenza Virus Vaccine Quad IM 3+ YRS Unknown Completed [facility] Pneumococcal 13 Conjugate, PCV13 (Prevnar 13) Unknown Completed [facility] SARS-COV-2 COVID-19 VACCINE - (MODERNA) Unknown Completed [facility] SARS-COV-2 COVID-19 PFIZER THERESE-SUCROSE VACCINE (SHAH TOP) Unknown Completed [facility] Influenza Virus Vaccine,quad Im,preserve Free 65+ (FLUAD) Unknown Completed [facility] Influenza Virus Vaccine Unknown Completed [facility] Pneumococcal Polysaccharide, PPSV23 (PNEUMOVAX) Unknown Completed [facility] H1n1 Vaccine Unknown Completed [facility] PPD (TB) Unknown Completed [facility] TDAP (ADACEL) VACCINE Unknown Completed [facility] Influenza Virus Vaccine Quad IM 3+ YRS Unknown Completed [facility] Pneumococcal 13 Conjugate, PCV13 (Prevnar 13) Unknown Completed [facility] SARS-COV-2 COVID-19 VACCINE - (MODERNA) Unknown Completed [facility] SARS-COV-2 COVID-19 PFIZER THERESE-SUCROSE VACCINE (SHAH TOP) Unknown Completed [facility] Influenza Virus Vaccine,quad Im,preserve Free 65+ (FLUAD) Unknown Completed [facility] Influenza Virus Vaccine Unknown Completed [facility] Pneumococcal Polysaccharide, PPSV23 (PNEUMOVAX) Unknown Completed [facility] H1n1 Vaccine Unknown Completed [facility] PPD (TB) Unknown Completed [facility] TDAP (ADACEL) VACCINE Unknown Completed [facility] Influenza Virus Vaccine Quad IM 3+ YRS Unknown Completed [facility] Pneumococcal 13 Conjugate, PCV13 (Prevnar 13) Unknown Completed [facility] SARS-COV-2 COVID-19 VACCINE - (MODERNA) [facility] SARS-COV-2 COVID-19 PFIZER THERESE-SUCROSE VACCINE (SHAH TOP) Unknown [facility] Virus Vaccine,quad Im,preserve Free 65+ (FLUAD) Unknown Completed [facility] Influenza Virus Vaccine Unknown Completed [facility] Pneumococcal Polysaccharide, PPSV23 (PNEUMOVAX) Unknown Completed [facility] H1n1 Vaccine Unknown Completed [facility] PPD (TB) Unknown Completed [facility] TDAP (ADACEL) VACCINE Unknown Completed [facility] Influenza Virus Vaccine Quad IM 3+ YRS Unknown Completed [facility] Pneumococcal 13 Conjugate, PCV13 (Prevnar 13) Unknown Completed [facility] SARS-COV-2 COVID-19 VACCINE - (MODERNA) [facility] SARS-COV-2 COVID-19 PFIZER THERESE-SUCROSE VACCINE (SHAH TOP) Unknown Completed [facility] Influenza Virus Vaccine,quad Im,preserve Free 65+ (FLUAD) Unknown Completed [facility] Influenza Virus Vaccine Unknown Completed [facility] Pneumococcal Polysaccharide, PPSV23 (PNEUMOVAX) Unknown [facility]ine [facility] Completed [facility] PPD (TB) Unknown Completed [facility] TDAP (ADACEL) VACCINE Unknown Completed [facility] Influenza Virus Vaccine Quad IM 3+ YRS Unknown Completed [facility] Pneumococcal 13 Conjugate, PCV13 (Prevnar 13) Unknown Completed [facility] SARS-COV-2 COVID-19 VACCINE - (MODERNA) Unknown Completed [facility] SARS-COV-2 COVID-19 PFIZER THERESE-SUCROSE VACCINE (SHAH TOP) Unknown Completed [facility] Influenza Virus Vaccine,quad Im,preserve Free 65+ (FLUAD) Unknown Completed [facility] Influenza Virus Vaccine Unknown Completed [facility] Pneumococcal Polysaccharide, PPSV23 (PNEUMOVAX) Unknown Completed [facility] H1n1 Vaccine Unknown Completed [facility] PPD (TB) Unknown Completed [facility] TDAP (ADACEL) VACCINE Unknown Completed [facility] Influenza Virus Vaccine Quad IM 3+ YRS Unknown Completed [facility] Pneumococcal 13 Conjugate, PCV13 (Prevnar 13) Unknown Completed [facility] SARS-COV-2 COVID-19 VACCINE - (MODERNA) Unknown Completed [facility] SARS-COV-2 COVID-19 PFIZER THERESE-SUCROSE VACCINE (SHAH TOP) Unknown [facility] Virus Vaccine,quad Im,preserve Free 65+ (FLUAD) Unknown Completed [facility] Influenza Virus Vaccine Unknown Completed [facility] Pneumococcal Polysaccharide, PPSV23 (PNEUMOVAX) Unknown Completed [facility] H1n1 Vaccine Unknown Completed [facility] PPD (TB) Unknown Completed [facility] TDAP (ADACEL) VACCINE Unknown Completed [facility] Influenza Virus Vaccine Quad IM 3+ YRS Unknown Completed [facility] Pneumococcal 13 Conjugate, PCV13 (Prevnar 13) Unknown Completed [facility] SARS-COV-2 COVID-19 VACCINE - (MODERNA) Unknown Completed [facility] SARS-COV-2 COVID-19 PFIZER THERESE-SUCROSE VACCINE (SHAH TOP) Unknown Completed [facility] Influenza Virus Vaccine,quad Im,preserve Free 65+ (FLUAD) Unknown Completed [facility] Influenza Virus Vaccine Unknown Completed [facility] Pneumococcal Polysaccharide, PPSV23 (PNEUMOVAX) Unknown Completed [facility] H1n1 Vaccine Unknown Completed [facility] PPD (TB) Unknown Completed [facility] TDAP (ADACEL) VACCINE Unknown Completed [facility] Influenza Virus Vaccine Quad IM 3+ YRS Unknown Completed [facility] Pneumococcal 13 Conjugate, PCV13 (Prevnar 13) Unknown Completed [facility] SARS-COV-2 COVID-19 VACCINE - (MODERNA) Unknown Completed [facility] SARS-COV-2 COVID-19 PFIZER THERESE-SUCROSE VACCINE (SHAH TOP) Unknown Completed [facility] Influenza Virus Vaccine,quad Im,preserve Free 65+ (FLUAD) Unknown Completed [facility] Influenza Virus Vaccine Unknown Completed [facility] Pneumococcal Polysaccharide, PPSV23 (PNEUMOVAX) Unknown Completed [facility] H1n1 Vaccine Unknown Completed [facility] PPD (TB) Unknown Completed [facility] TDAP (ADACEL) VACCINE Unknown Completed [facility] Influenza Virus Vaccine Quad IM 3+ YRS Unknown Completed [facility] Pneumococcal 13 Conjugate, PCV13 (Prevnar 13) Unknown Completed [facility] SARS-COV-2 COVID-19 VACCINE - (MODERNA) Unknown Completed [facility] SARS-COV-2 COVID-19 PFIZER THERESE-SUCROSE VACCINE (SHAH TOP) Unknown Completed [facility] Influenza Virus Vaccine,quad Im,preserve Free 65+ (FLUAD) Unknown Completed [facility] Influenza Virus Vaccine Unknown Completed [facility] Pneumococcal Polysaccharide, PPSV23 (PNEUMOVAX) Unknown [facility]ine [facility] Com[facility] PPD (TB) Unknown Completed [facility] TDAP (ADACEL) VACCINE Unknown Completed [facility] Influenza Virus Vaccine Quad IM 3+ YRS Unknown Completed [facility] Pneumococcal 13 Conjugate, PCV13 (Prevnar 13) Unknown Completed [facility] SARS-COV-2 COVID-19 VACCINE - (MODERNA) Unknown Completed [facility] SARS-COV-2 COVID-19 PFIZER THERESE-SUCROSE VACCINE (SHAH TOP) Unknown [facility] Influ[facility] Virus Vaccine,quad Im,preserve Free 65+ (FLUAD) Unknown Completed [facility] SARS-COV-2 COVID-19 VACCINE - (MODERNA) Unknown Completed [facility] SARS-COV-2 COVID-19 PFIZER THERESE-SUCROSE VACCINE (SHAH TOP) Unknown Completed [facility] Influenza Virus Vaccine,quad Im,preserve Free 65+ (FLUAD) Unknown Completed [facility] Influenza Virus Vaccine Unknown Completed [facility] Pneumococcal Polysaccharide, PPSV23 (PNEUMOVAX) Unknown Completed [facility] H1n1 Vaccine Unknown Completed [facility] PPD (TB) Unknown Completed [facility] TDAP (ADACEL) VACCINE Unknown Completed [facility] Influenza Virus Vaccine Quad IM 3+ YRS Unknown Completed [facility] Pneumococcal 13 Conjugate, PCV13 (Prevnar 13) Unknown Completed [facility] Influenza Virus Vaccine Unknown Completed [facility] Pneumococcal Polysaccharide, PPSV23 (PNEUMOVAX) Unknown Completed [facility] H1n1 Vaccine Unknown Completed [facility] PPD (TB) Unknown Completed [facility] TDAP (ADACEL) VACCINE Unknown Completed [facility] Influenza Virus Vaccine Quad IM 3+ YRS Unknown Completed [facility] Pneumococcal 13 Conjugate, PCV13 (Prevnar 13) Unknown Completed [facility] SARS-COV-2 COVID-19 VACCINE - (MODERNA) Unknown Completed [facility] SARS-COV-2 COVID-19 PFIZER THERESE-SUCROSE VACCINE (SHAH TOP) Unknown Completed [facility] Influenza Virus Vaccine,quad Im,preserve Free 65+ (FLUAD) Unknown Completed [facility] Influenza Virus Vaccine Unknown Completed [facility] Pneumococcal Polysaccharide, PPSV23 (PNEUMOVAX) Unknown Completed [facility] H1n1 Vaccine Unknown Completed [facility] PPD (TB) Unknown Completed [facility] TDAP (ADACEL) VACCINE Unknown Completed [facility] Influenza Virus Vaccine Quad IM 3+ YRS Unknown Completed [facility] Pneumococcal 13 Conjugate, PCV13 (Prevnar 13) Unknown Completed [facility] SARS-COV-2 COVID-19 VACCINE - (MODERNA) Unknown Completed [facility] SARS-COV-2 COVID-19 PFIZER THERESE-SUCROSE VACCINE (SHAH TOP) Unknown Completed [facility] Influenza Virus Vaccine,quad Im,preserve Free 65+ (FLUAD) Unknown Completed [facility] Influenza Virus Vaccine Unknown Completed [facility] Pneumococcal Polysaccharide, PPSV23 (PNEUMOVAX) Unknown Completed [facility] H1n1 Vaccine Unknown Completed [facility] PPD (TB) Unknown Completed [facility] TDAP (ADACEL) VACCINE Unknown Completed [facility] Influenza Virus Vaccine Quad IM 3+ YRS Unknown Completed [facility] Pneumococcal 13 Conjugate, PCV13 (Prevnar 13) Unknown Completed [facility] SARS-COV-2 COVID-19 VACCINE - (MODERNA) Unknown Completed [facility] SARS-COV-2 COVID-19 PFIZER THERESE-SUCROSE VACCINE (SHAH TOP) Unknown Completed [facility] Influenza Virus Vaccine,quad Im,preserve Free 65+ (FLUAD) Unknown Completed [facility] Influenza Virus Vaccine Unknown Completed [facility] Pneumococcal Polysaccharide, PPSV23 (PNEUMOVAX) Unknown Completed [facility] H1n1 Vaccine Unknown Completed [facility] PPD (TB) Unknown Completed [facility] TDAP (ADACEL) VACCINE Unknown Completed [facility] Influenza Virus Vaccine Quad IM 3+ YRS Unknown Completed [facility] Pneumococcal 13 Conjugate, PCV13 (Prevnar 13) Unknown Completed [facility] SARS-COV-2 COVID-19 VACCINE - (MODERNA) Unknown Completed [facility] SARS-COV-2 COVID-19 PFIZER THERESE-SUCROSE VACCINE (SHAH TOP) Unknown Completed [facility] Influenza Virus Vaccine,quad Im,preserve Free 65+ (FLUAD) Unknown Completed [facility] Influenza Virus Vaccine Unknown Completed [facility] Pneumococcal Polysaccharide, PPSV23 (PNEUMOVAX) Unknown Completed [facility] H1n1 Vaccine Unknown Completed [facility] PPD (TB) Unknown Completed [facility] TDAP (ADACEL) VACCINE Unknown Completed [facility] Influenza Virus Vaccine Quad IM 3+ YRS Unknown Completed [facility] Pneumococcal 13 Conjugate, PCV13 (Prevnar 13) Unknown Completed [facility] SARS-COV-2 COVID-19 VACCINE - (MODERNA) Unknown Completed [facility] SARS-COV-2 COVID-19 PFIZER THERESE-SUCROSE VACCINE (SHAH TOP) Unknown Completed [facility] Influenza Virus Vaccine,quad Im,preserve Free 65+ (FLUAD) Unknown Completed [facility] H1n1 Vaccine Unknown Completed [facility] PPD (TB) Unknown Completed [facility] TDAP (ADACEL) VACCINE Unknown Completed [facility] Pneumococcal 13 Conjugate, PCV13 (Prevnar 13) Unknown Completed [facility] SARS-COV-2 COVID-19 VACCINE - (MODERNA) Unknown Completed [facility] SARS-COV-2 COVID-19 PFIZER THERESE-SUCROSE VACCINE (SHAH TOP) Unknown Completed [facility] Influenza Virus Vaccine,quad Im,preserve Free 65+ (FLUAD) Unknown Completed [facility] H1n1 Vaccine Unknown Completed [facility] PPD (TB) Unknown Completed [facility] TDAP (ADACEL) VACCINE Unknown Completed [facility] Pneumococcal 13 Conjugate, PCV13 (Prevnar 13) Unknown Completed [facility] SARS-COV-2 COVID-19 VACCINE - (MODERNA) Unknown Completed [facility] SARS-COV-2 COVID-19 PFIZER THERESE-SUCROSE VACCINE (SHAH TOP) Unknown Completed [facility] Influenza Virus Vaccine,quad Im,preserve Free 65+ (FLUAD) Unknown Completed [facility] Influenza Virus Vaccine Unknown Completed [facility] Pneumococcal Polysaccharide, PPSV23 (PNEUMOVAX) Unknown Completed [facility] H1n1 Vaccine Unknown Completed [facility] PPD (TB) Unknown Completed [facility] TDAP (ADACEL) VACCINE Unknown Completed [facility] Influenza Virus Vaccine Quad IM 3+ YRS Unknown Completed [facility] Pneumococcal 13 Conjugate, PCV13 (Prevnar 13) Unknown Completed [facility] SARS-COV-2 COVID-19 VACCINE - (MODERNA) Unknown Completed [facility] SARS-COV-2 COVID-19 PFIZER THERESE-SUCROSE VACCINE (SHAH TOP) Unknown Completed [facility] Influenza Virus Vaccine,quad Im,preserve Free 65+ (FLUAD) Unknown Completed [facility] Influenza Virus Vaccine Unknown Completed [facility] Pneumococcal Polysaccharide, PPSV23 (PNEUMOVAX) Unknown Completed [facility] Influenza Virus Vaccine Quad IM 3+ YRS Unknown Completed [facility] Influenza Virus Vaccine Unknown Completed [facility] Pneumococcal Polysaccharide, PPSV23 (PNEUMOVAX) Unknown Completed [facility] Influenza Virus Vaccine Quad IM 3+ YRS Unknown Completed [facility] Influenza Virus Vaccine Unknown Completed [facility] Pneumococcal Polysaccharide, PPSV23 (PNEUMOVAX) Unknown Completed [facility] H1n1 Vaccine Unknown Completed [facility] PPD (TB) Unknown Completed [facility] TDAP (ADACEL) VACCINE Unknown Completed [facility] Influenza Virus Vaccine Quad IM 3+ YRS Unknown Completed [facility] Pneumococcal 13 Conjugate, PCV13 (Prevnar 13) Unknown Completed [facility] SARS-COV-2 COVID-19 VACCINE - (MODERNA) Unknown Completed [facility] SARS-COV-2 COVID-19 PFIZER THERESE-SUCROSE VACCINE (SHAH TOP) Unknown Completed [facility] Influenza Virus Vaccine,quad Im,preserve Free 65+ (FLUAD) Unknown Completed [facility] Influenza Virus Vaccine Unknown Completed [facility] Pneumococcal Polysaccharide, PPSV23 (PNEUMOVAX) Unknown Completed [facility] H1n1 Vaccine Unknown Completed [facility] PPD (TB) Unknown Completed [facility] TDAP (ADACEL) VACCINE Unknown Completed [facility] Influenza Virus Vaccine Quad IM 3+ YRS Unknown Completed [facility] Pneumococcal 13 Conjugate, PCV13 (Prevnar 13) Unknown Completed [facility] SARS-COV-2 COVID-19 VACCINE - (MODERNA) Unknown Completed [facility] SARS-COV-2 COVID-19 PFIZER THERESE-SUCROSE VACCINE (SHAH TOP) Unknown Completed [facility] Influenza Virus Vaccine,quad Im,preserve Free 65+ (FLUAD) Unknown Completed [facility] Influenza Virus Vaccine Unknown Completed [facility] Pneumococcal Polysaccharide, PPSV23 (PNEUMOVAX) Unknown Completed [facility] H1n1 Vaccine Unknown Completed [facility] PPD (TB) Unknown Completed [facility] TDAP (ADACEL) VACCINE Unknown Completed [facility] Influenza Virus Vaccine Quad IM 3+ YRS Unknown Completed [facility] Pneumococcal 13 Conjugate, PCV13 (Prevnar 13) Unknown Completed [facility] SARS-COV-2 COVID-19 VACCINE - (MODERNA) Unknown Completed [facility] SARS-COV-2 COVID-19 PFIZER THERESE-SUCROSE VACCINE (SHAH TOP) Unknown Completed [facility] Influenza Virus Vaccine,quad Im,preserve Free 65+ (FLUAD) Unknown Completed [facility] Vital Signs Vital Name Observation Time Observation Value Comments S ource Systolic blood pressure 2024-05-13 14:29:00 126 mm[Hg] [facility] Diastolic blood pressure 2024-05-13 14:29:00 67 mm[Hg] [facility] Heart rate 2024-05-13 14:29:00 89 /min [facility] Body temperature 2024-05-13 14:29:00 36.67 Esther [facility] Respiratory rate 2024-05-13 14:29:00 18 /min [facility] Body height 2024-05-13 14:29:00 152.4 cm [facility] Body weight 2024-05-13 14:29:00 75.569 kg [facility] BMI 2024-05-13 14:29:00 32.54 kg/m2 [facility] Oxygen saturation in Arterial blood by Pulse oximetry 2024-05-13 14:29:00 97 /min [facility] Systolic blood pressure 2024-05-04 12:36:00 115 mm[Hg] [facility] Diastolic blood pressure 2024-05-04 12:36:00 70 mm[Hg] [facility] Heart rate 2024-05-04 12:36:00 65 /min [facility] Body temperature 2024-05-04 12:36:00 36.44 Esther [facility] Respiratory rate 2024-05-04 12:36:00 16 /min [facility] Oxygen saturation in Arterial blood by Pulse oximetry 2024-05-04 12:36:00 97 /min [facility] Body height 2024-05-03 16:02:00 152.4 cm [facility] Body weight 2024-05-03 16:02:00 75.2 kg [facility] BMI 2024-05-03 16:02:00 32.38 kg/m2 [facility] Oxygen saturation in Arterial blood by Pulse oximetry 2024-05-03 10:38:00 97 /min [facility] Systolic blood pressure 2024-05-03 10:38:00 121 mm[Hg] [facility] Diastolic blood pressure 2024-05-03 10:38:00 70 mm[Hg] [facility] Heart rate 2024-05-03 10:38:00 82 /min [facility] Body temperature 2024-05-03 10:38:00 37 Esther [facility] Respiratory rate 2024-05-03 10:38:00 16 /min [facility] Body height 2024-05-03 10:38:00 152.4 cm [facility] Body weight 2024-05-03 10:38:00 75.2 kg [facility] BMI 2024-05-03 10:38:00 32.38 kg/m2 [facility] Systolic blood pressure 2024-04-15 14:49:00 131 mm[Hg] [facility] Diastolic blood pressure 2024-04-15 14:49:00 73 mm[Hg] [facility] Heart rate 2024-04-15 14:49:00 75 /min [facility] Body height 2024-04-15 14:49:00 152.4 cm [facility] Body weight 2024-04-15 14:49:00 75.014 kg [facility] BMI 2024-04-15 14:49:00 32.30 kg/m2 [facility] Oxygen saturation in Arterial blood by Pulse oximetry 2024-04-15 14:49:00 100 /min [facility] Systolic blood pressure 2024-04-08 15:44:00 146 mm[Hg] taken med atb 930 am today [facility] Diastolic blood pressure 2024-04-08 15:44:00 77 mm[Hg] taken med atb 930 am today [facility] Heart rate 2024-04-08 15:44:00 80 /min [facility] Body temperature 2024-04-08 15:44:00 36.11 Esther [facility] Respiratory rate 2024-04-08 15:44:00 22 /min [facility] Body height 2024-04-08 15:44:00 152.4 cm [facility] Body weight 2024-04-08 15:44:00 76.204 kg [facility] BMI 2024-04-08 15:44:00 32.81 kg/m2 [facility] Oxygen saturation in Arterial blood by Pulse oximetry 2024-04-08 15:44:00 98 /min [facility] Systolic blood pressure 2024-04-02 17:10:00 129 mm[Hg] [facility] Diastolic blood pressure 2024-04-02 17:10:00 70 mm[Hg] [facility] Heart rate 2024-04-02 17:10:00 75 /min [facility] Body temperature 2024-04-02 17:10:00 36.67 Esther [facility] Respiratory rate 2024-04-02 17:10:00 18 /min [facility] Oxygen saturation in Arterial blood by Pulse oximetry 2024-04-02 17:10:00 98 /min [facility] Body height 2024-03-30 15:34:00 152.4 cm [facility] Body weight 2024-03-30 15:34:00 75.3 kg [facility] BMI 2024-03-30 15:34:00 32.42 kg/m2 [facility] Systolic blood pressure 2024-03-30 23:45:00 103 mm[Hg] [facility] Diastolic blood pressure 2024-03-30 23:45:00 60 mm[Hg] [facility] Heart rate 2024-03-30 23:45:00 71 /min [facility] Respiratory rate 2024-03-30 23:45:00 12 /min [facility] Oxygen saturation in Arterial blood by Pulse oximetry 2024-03-30 23:45:00 91 /min [facility] Body temperature 2024-03-30 23:38:00 36.78 Esther [facility] Body height 2024-03-30 15:34:00 152.4 cm [facility] Body weight 2024-03-30 15:34:00 75.3 kg [facility] BMI 2024-03-30 15:34:00 32.42 kg/m2 [facility] Systolic blood pressure 2024-03-28 15:35:00 145 mm[Hg] [facility] Diastolic blood pressure 2024-03-28 15:35:00 89 mm[Hg] [facility] Heart rate 2024-03-28 15:35:00 101 /min [facility] Body height 2024-03-28 15:35:00 152.4 cm [facility] Body weight 2024-03-28 15:35:00 76.658 kg [facility] BMI 2024-03-28 15:35:00 33.01 kg/m2 [facility] Oxygen saturation in Arterial blood by Pulse oximetry 2024-03-28 15:35:00 95 /min [facility] Systolic blood pressure 2024-03-23 20:57:00 102 mm[Hg] [facility] Diastolic blood pressure 2024-03-23 20:57:00 63 mm[Hg] [facility] Heart rate 2024-03-23 20:57:00 83 /min [facility] Body temperature 2024-03-23 20:57:00 35.67 Esther [facility] Respiratory rate 2024-03-23 20:57:00 18 /min [facility] Oxygen saturation in Arterial blood by Pulse oximetry 2024-03-23 20:57:00 95 /min [facility] Body height 2024-03-22 10:51:00 154.9 cm [facility] Body weight 2024-03-22 10:51:00 75.8 kg [facility] BMI 2024-03-22 10:51:00 31.57 kg/m2 [facility] Systolic blood pressure 2024-03-22 14:30:00 137 mm[Hg] [facility] Diastolic blood pressure 2024-03-22 14:30:00 86 mm[Hg] [facility] Heart rate 2024-03-22 14:30:00 92 /min [facility] Respiratory rate 2024-03-22 14:30:00 13 /min [facility] Oxygen saturation in Arterial blood by Pulse oximetry 2024-03-22 14:30:00 98 /min [facility] Body temperature 2024-03-22 14:12:00 36.39 Esther [facility] Body height 2024-03-22 10:51:00 154.9 cm [facility] Body weight 2024-03-22 10:51:00 75.8 kg [facility] BMI 2024-03-22 10:51:00 31.57 kg/m2 [facility] Systolic blood pressure 2024-03-18 15:18:00 130 mm[Hg] [facility] Diastolic blood pressure 2024-03-18 15:18:00 85 mm[Hg] [facility] Heart rate 2024-03-18 15:18:00 93 /min [facility] Body temperature 2024-03-18 15:18:00 36.61 Esther [facility] Respiratory rate 2024-03-18 15:18:00 16 /min [facility] Body height 2024-03-18 15:18:00 152.4 cm [facility] Body weight 2024-03-18 15:18:00 77.883 kg [facility] BMI 2024-03-18 15:18:00 33.53 kg/m2 [facility] Oxygen saturation in Arterial blood by Pulse oximetry 2024-03-18 15:18:00 98 /min [facility] Body weight 2023-12-24 14:29:00 72.576 kg [facility] BMI 2023-12-24 14:29:00 30.23 kg/m2 [facility] Systolic blood pressure 2023-12-04 14:52:00 97 mm[Hg] [facility] Diastolic blood pressure 2023-12-04 14:52:00 59 mm[Hg] [facility] Heart rate 2023-12-04 14:52:00 73 /min [facility] Body height 2023-12-04 14:52:00 154.9 cm [facility] Body weight 2023-12-04 14:52:00 72.485 kg [facility] BMI 2023-12-04 14:52:00 30.19 kg/m2 [facility] Oxygen saturation in Arterial blood by Pulse oximetry 2023-12-04 14:52:00 96 /min [facility] Systolic blood pressure 2023-11-25 15:15:00 102 mm[Hg] [facility] Diastolic blood pressure 2023-11-25 15:15:00 69 mm[Hg] [facility] Heart rate 2023-11-25 15:15:00 74 /min [facility] Body temperature 2023-11-25 15:15:00 36.22 Esther [facility] Respiratory rate 2023-11-25 15:15:00 18 /min [facility] Body height 2023-11-25 15:15:00 159 cm [facility] Body weight 2023-11-25 15:15:00 74.571 kg [facility] BMI 2023-11-25 15:15:00 29.50 kg/m2 [facility] Oxygen saturation in Arterial blood by Pulse oximetry 2023-11-25 15:15:00 99 /min [facility] Body height 2023-11-04 20:26:00 152.4 cm [facility] Body weight 2023-11-04 20:26:00 71.396 kg [facility] BMI 2023-11-04 20:26:00 30.74 kg/m2 [facility] Body weight 2023-10-09 15:31:00 73.619 kg [facility] BMI 2023-10-09 15:31:00 31.70 kg/m2 [facility] Systolic blood pressure 2023-09-18 15:19:00 117 mm[Hg] [facility] Diastolic blood pressure 2023-09-18 15:19:00 78 mm[Hg] [facility] Heart rate 2023-09-18 15:19:00 79 /min [facility] Body temperature 2023-09-18 15:19:00 35.78 Esther [facility] Respiratory rate 2023-09-18 15:19:00 16 /min [facility] Body height 2023-09-18 15:19:00 152.4 cm [facility] Body weight 2023-09-18 15:19:00 73.256 kg [facility] BMI 2023-09-18 15:19:00 31.54 kg/m2 [facility] Oxygen saturation in Arterial blood by Pulse oximetry 2023-09-18 15:19:00 98 /min [facility] Systolic blood pressure 2023-03-18 14:22:00 140 mm[Hg] [facility] Diastolic blood pressure 2023-03-18 14:22:00 83 mm[Hg] [facility] Heart rate 2023-03-18 14:18:00 84 /min [facility] Body temperature 2023-03-18 14:18:00 36.56 Esther [facility] Respiratory rate 2023-03-18 14:18:00 16 /min [facility] Body height 2023-03-18 14:18:00 152.4 cm [facility] Body weight 2023-03-18 14:18:00 73.573 kg [facility] BMI 2023-03-18 14:18:00 31.68 kg/m2 [facility] Oxygen saturation in Arterial blood by Pulse oximetry 2023-03-18 14:18:00 99 /min room air [facility] BP Systolic 2024-09-26 10:52:00 151 mm[Hg] [facility] BP Diastolic 2024-09-26 10:52:00 82 mm[Hg] [facility] Weight Measured 2024-09-26 10:52:00 154.20 pounds [facility] Height Measured 2024-09-26 10:52:00 65.00 inches [facility] Body Temperature 2024-09-26 10:52:00 98.00 degrees [facility] Heart Rate 2024-09-26 10:52:00 81.00 /min [facility] Respiratory Rate 2024-09-26 10:52:00 18.00 /min [facility] Systolic blood pressure 2024-09-16 16:32:00 119 mm[Hg] [facility] Diastolic blood pressure 2024-09-16 16:32:00 74 mm[Hg] [facility] Heart rate 2024-09-16 16:32:00 86 /min [facility] Body temperature 2024-09-16 16:32:00 36.72 Esther [facility] Respiratory rate 2024-09-16 16:32:00 18 /min [facility] Body height 2024-09-16 16:32:00 152.4 cm [facility] Body weight 2024-09-16 16:32:00 73.165 kg [facility] BMI 2024-09-16 16:32:00 31.50 kg/m2 [facility] Oxygen saturation in Arterial blood by Pulse oximetry 2024-09-16 16:32:00 98 /min [facility] BP Systolic 2024-01-07 10:51:00 118 mm[Hg] [facility] BP Diastolic 2024-01-07 10:51:00 75 mm[Hg] [facility] Weight Measured 2024-01-07 10:51:00 161.80 pounds [facility] Height Measured 2024-01-07 10:51:00 65.00 inches [facility] Body Temperature 2024-01-07 10:51:00 98.00 degrees [facility] Heart Rate 2024-01-07 10:51:00 73.00 /min [facility] Respiratory Rate 2024-01-07 10:51:00 Kelvin Nichols BP Systolic 2023-11-17 08:32:00 131 mm[Hg] [facility] BP Diastolic 2023-11-17 08:32:00 93 mm[Hg] [facility] Weight Measured 2023-11-17 08:32:00 160.00 pounds [facility] Height Measured 2023-11-17 08:32:00 65.00 inches [facility] Body Temperature 2023-11-17 08:32:00 98.10 degrees [facility] Heart Rate 2023-11-17 08:32:00 82.00 /min [facility] Respiratory Rate 2023-11-17 08:32:00 18.00 /min [facility] F Simone BP Systolic 2023-08-18 08:31:00 122 mm[Hg] [facility] BP Diastolic 2023-08-18 08:31:00 80 mm[Hg] [facility] Weight Measured 2023-08-18 08:31:00 162.00 pounds [facility] Height Measured 2023-08-18 08:31:00 65.00 inches [facility] Body Temperature 2023-08-18 08:31:00 98.20 degrees [facility] Heart Rate 2023-08-18 08:31:00 72.00 /min [facility] Respiratory Rate 2023-08-18 08:31:00 18.00 /min [facility] BP Systolic 2023-05-19 08:35:00 138 mm[Hg] [facility] BP Diastolic 2023-05-19 08:35:00 82 mm[Hg] [facility] Weight Measured 2023-05-19 08:35:00 157.80 pounds [facility] F Sim[facility] Height Measured 2023-05-19 08:35:00 65.00 inches [facility] F Sim[facility] Body Temperature 2023-05-19 08:35:00 98.20 degrees [facility] F Sim[facility] Heart Rate 2023-05-19 08:35:00 90.00 /min [facility] Respiratory Rate 2023-05-19 08:35:00 18.00 /min [facility] BP Systolic 2023-03-03 08:39:00 168 mm[Hg] [facility] BP Diastolic 2023-03-03 08:39:00 83 mm[Hg] [facility] Weight Measured 2023-03-03 08:39:00 163.00 pounds [facility] Height Measured 2023-03-03 08:39:00 65.00 inches [facility] F Sim[facility] Body Temperature 2023-03-03 08:39:00 98.50 degrees [facility] Heart Rate 2023-03-03 08:39:00 95.00 /min [facility] Respiratory Rate 2023-03-03 08:39:00 18.00 /min [facility] BP Systolic 2022-12-31 10:30:00 120 mm[Hg] [facility] BP Diastolic 2022-12-31 10:30:00 75 mm[Hg] [facility] Weight Measured 2022-12-31 10:30:00 163.20 pounds [facility] F Simone Height Measured 2022-12-31 10:30:00 65.00 inches Kel[facility] F Simone Body Temperature 2022-12-31 10:30:00 98.10 degrees Kelvin F Simone Heart Rate 2022-12-31 10:30:00 76.00 /min Kelvin F Smione Respiratory Rate 2022-12-31 10:30:00 19.00 /min Kel[facility] F Simone BP Systolic 2022-11-11 09:38:00 129 mm[Hg] [facility] F Sim[facility] BP Diastolic 2022-11-11 09:38:00 74 mm[Hg] [facility] Weight Measured 2022-11-11 09:38:00 159.00 pounds Kelvin F Simone Height Measured 2022-11-11 09:38:00 65.00 inches Kel[facility] F Simone Body Temperature 2022-11-11 09:38:00 Kelvin F Simone Heart Rate 2022-11-11 09:38:00 76.00 /min [facility] Respiratory Rate 2022-11-11 09:38:00 17.00 /min [facility] F Sim[facility] BP Systolic 2022-08-12 09:08:00 114 mm[Hg] [facility] F Sim[facility] BP Diastolic 2022-08-12 09:08:00 73 mm[Hg] [facility] Weight Measured 2022-08-12 09:08:00 153.40 pounds Kel[facility] F Simone Height Measured 2022-08-12 09:08:00 65.00 inches Kelvin F Simone Body Temperature 2022-08-12 09:08:00 99.30 degrees Kelvin F Simone Heart Rate 2022-08-12 09:08:00 65.00 /min [facility] Sim[facility] Respiratory Rate 2022-08-12 09:08:00 17.00 /min Kel[facility] F Simone BP Systolic 2022-06-13 08:41:00 137 mm[Hg] Kelvin F Simone BP Diastolic 2022-06-13 08:41:00 89 mm[Hg] [facility] F Simone Weight Measured 2022-06-13 08:41:00 163.80 pounds Kel[facility] Nichols Height Measured 2022-06-13 08:41:00 65.00 inches Kelvin Nichols Body Temperature 2022-06-13 08:41:00 97.80 degrees Kelvin Nichols Heart Rate 2022-06-13 08:41:00 108.00 /min [facility] Respiratory Rate 2022-06-13 08:41:00 19.00 /min [facility] BP Systolic 2022-05-27 10:00:00 118 mm[Hg] [facility] BP Diastolic 2022-05-27 10:00:00 65 mm[Hg] [facility] Weight Measured 2022-05-27 10:00:00 163.80 pounds [facility] Height Measured 2022-05-27 10:00:00 65.00 inches Kel[facility] Nichols Body Temperature 2022-05-27 10:00:00 99.20 degrees Kelvin Nichols Heart Rate 2022-05-27 10:00:00 91.00 /min [facility] Respiratory Rate 2022-05-27 10:00:00 17.00 /min [facility] Procedures Procedure Date / Time Performed Performing Clinician Source HUMAN IMMUNODEFICIENCY VIRUS 1 (HIV-1) BY QUANTITATIVE NAAT 2024-09-16 17:25:00 [facility] CD4 SUBSET ASSAY 2024-09-16 17:25:00 [facility] QUANTIFERON-TB ASSAY 2024-09-16 17:25:00 [facility] SARS-COV-2 COVID 19 THERESE SUCROSE VACCINE 12+, , 0.3 ML (30 MCG), IM PFIZER (SHAH TOP) 2024-09-16 17:06:49 [facility] INTUBATION 2024-05-03 12:20:00 [facility] [id number] [place] FOREHEAD FLAP W/PRESERVATION VASCULAR PEDICLE 2024-05-03 11:55:00 Marcela Niño [facility] [id number] - [place] ADJT TIS TRNSFR/REARRGMT E/N/E/L DFCT 10 SQ CM/< 2024-05-03 11:55:00 Marcela Niño [facility] [id number] - [place] FTH/GFT FREE W/DIRECT CLOSURE S/A/L 20 SQ CM/< 2024-05-03 11:55[facility] [id number] [place] FOREHEAD FLAP W/PRESERVATION VASCULAR PEDICLE 2024-05-03 11:55:00 [facility] [id number] - [place] ADJT TIS TRNSFR/REARRGMT E/N/E/L DFCT 10 SQ CM/< 2024-05-03 11:55:00 Jamilah Niñoehr [facility] [id number] - [place] FTH/GFT FREE W/DIRECT CLOSURE S/A/L 20 SQ CM/< 2024-05-03 11:55:00 [facility] CBC WITH DIFF 2024-03-30 23:54[facility]-30 23:54:00 Foreign [facility] ABG+COOX+NA+K+GLU+CA2+ 2024-03-30 21:46:[address] [facility] ABG+COOX+NA+K+GLU+CA2+ 2024-03-30 19:51:[address] [facility] [id number] - [place] FOREHEAD FLAP W/PRESERVATION VASCULAR PEDICLE 2024-03-30 18:27:00 [facility] [id number] [facility] [place] GRAFT EAR CRTLG AUTOGENOUS NOSE/EAR 2024-03-30 18:27:00 [facility] [id number] - [place] ADJT TIS TRNSFR/REARRGMT E/N/E/L DFCT 10 SQ CM/< 2024-03-30 18:27:00 [facility] [id number] - [place] CARTILAGE GRAFT NASAL SEPTUM 2024-03-30 18:27:00 [facility] [id number] - [place] FOREHEAD FLAP W/PRESERVATION VASCULAR PEDICLE 2024-03-30 18:27:00 Marcela Niño [facility] [id number] - [place] GRAFT EAR CRTLG AUTOGENOUS NOSE/EAR 2024-03-30 18:27:00 Jamilah Niñoehr [facility] [id number] - [place] ADJT TIS TRNSFR/REARRGMT E/N/E/L DFCT 10 SQ CM/< 2024-03-30 18:27:00 Jamilah Niñoehr [facility] [id number] - [place] CARTILAGE GRAFT NASAL SEPTUM 2024-03-30 18:27:00 Jamilah Niñoehr [facility] [id number] - [place] RHINECTOMY PARTIAL 2024-03-22 11:59:00 [place] [facility] [address] [place] RHINECTOMY PARTIAL 2024-03-22 11:59:00 [place] Marcela [facility] DERMATOPATHOLOGY TISSUE EXAM 2023-12-24 00:00:00 Albina Alexandre [facility] PET TUMOR IMAGING SKULL TO THIGH 2023-10-16 19:28:00 Neida Pina [facility] PET TUMOR IMAGING SKULL TO THIGH 2023-10-16 19:28:00 Neida Pina [facility] POCT GLUCOSE (AUTOMATED) 2023-10-16 17:07:00 Ronit Pina [facility] FLEXIBLE SCOPE ENT 2023-10-09 00:00:00 Neida Pina [facility] SOFT TISSUE NECK W CONTRAST 2023-08-20 16:44:00 Herman Bang [facility] HB CREATININE SERUM/BLOOD FOR IMAGING 2023-08-20 16:35:00 Herman Bang [facility] REFERRAL- REQUEST/RESPONSE 2023-08-18 06:01:00 D octor Unassigned, [facility] DERMATOPATHOLOGY TISSUE EXAM 2023-07-27 00:00:00 Maria M Schilling [facility] REFERRAL- REQUEST/RESPONSE 2023-03-19 05:01:00 D octor Unassigned, [facility] HCV ANTIBODY 2023-03-18 16:55:00 Fam Chung [facility] ASSIGNMENT OF BENEFITS 2023-02-02 15:05:11 Docto r Unassigned, [facility] DERMATOPATHOLOGY TISSUE EXAM 2023-02-02 00:00:00 Krish Ferreira [facility] REFERRAL- REQUEST/RESPONSE 2023-01-01 05:01:00 Aspen peacock Unassigned, [facility] Encounters Start Date/Time End Date/Time Encounter Type Admission Type Attending [facility] Care Facility Care Department Encounter ID Source 2024-09-26 11:01:32 2024-09-26 11:01:32 Outpatient SFA [facility] [id number] Kelvin Nichols 2024-09-26 00:00:00 2024-09-26 00:00:00 Outpatient Visit [facility] [id number] Kelvin Nichols 2024-09-16 12:15:00 2024-09-16 12:30:00 Staff Radiographer Visit Fam Chung [facility] 1.2.840.1 04335.1.1 3.104.2.7 .3.930609 .8 [id number] [facility] 2024-09-16 12:15:00 2024-09-16 12:15:00 Outpatient R FAM CHUNG [facility] [id number] [facility] 2024-09-16 10:00:00 2024-09-16 10:30:00 Office Visit Fam Chung 1.2.840.1 [id number] 3.104.2.7 .3.732115 .8 [id number] [facility] 2024-09-16 00:00:00 2024-09-16 00:00:00 Travel 1.2.840.1 51259.1.1 3.104.2.7 .3.983322 .8 1.2.840.114 350.1.13.10 4.2.7.3.698 [id number] [facility] 2024-05-27 09:20:00 2024-05-27 09:20:00 Outpatient R MARCELA NIÑO SEPEHR [facility] [id number] [facility] 2024-05-13 09:20:00 2024-05-13 09:52:52 Outpatient R MARCELA NIÑO SEPEHR [facility] [id number] [facility] 2024-05-13 09:20:00 2024-05-13 09:52:52 Office Visit [place] Marcel[facility] [place] 1.2.840.114 350.1.13.10 4.2.7.2.686 [id number] [facility] 2024-05-03 05:25:00 2024-05-04 13:40:00 Outpatient R MARCELA NIÑO MARCELA [facility] [id number] [facility] 2024-05-03 05:25:00 2024-05-04 13:40:00 Hospital Encounter Timo Niñor [facility] ([place]) 1.2.840.114 350.1.13.10 4.2.7.2.686 [id number] [facility] 2024-05-03 07:11:00 2024-05-03 09:49:00 Anesthesia Event Leslie er, Torie Avalos, Samson Nelson er, [facility] ([place]) 1.2.840.114 350.1.13.10 4.2.7.2.686 [id number] [facility] 2024-05-03 07:00:00 2024-05-03 09:43:00 Surgery Marcela Niño [facility] ([place]) 1.2.840.114 350.1.13.10 4.2.7.2.686 [id number] [facility] 2024-04-15 09:40:00 2024-04-15 11:25:15 Outpatient R MARCELA NIÑO SEPEHR [facility] [id number] [facility] 2024-04-15 09:40:00 2024-04-15 11:25:15 Office Visit Marcela Niño [facility] 1.2.840.114 350.1.13.10 4.2.7.2.686 [id number] [facility] 2024-04-08 10:40:00 2024-04-08 11:56:57 Outpatient R MARCELA NIÑO SEPEHR [facility] [id number] [facility] 2024-04-08 10:40:00 2024-04-08 11:56:57 Office Visit Marcela Niño [facility] 1.840.114 350.1.13.10 4.2.7.2.686 [id number] [facility] 2024-03-30 10:20:00 2024-04-02 16:58:00 Outpatient R MARCELA NIÑO SEPEHR [facility] [id number] [facility] 2024-03-30 10:20:00 2024-04-02 16:58:00 Hospital Encounter Marcela Niño [facility] 1.840.114 350.1.13.10 4.2.7.2.686 [id number] [facility] 2024-03-27 00:00:00 2024-04-01 08:30:03 Multidisci plinary Conference Pradeep Aaron [facility] 1.840.114 350.1.13.10 4.2.7.2.686 [id number] [facility] 2024-03-30 12:25:00 2024-03-30 18:58:00 Surgery [place] [facility] 1.2.840.114 350.1.13.10 4.2.7.2.686 [id number] [facility] 2024-03-28 11:00:00 2024-03-28 11:00:00 Office Visit Marcela Niño [facility] 1.2.840.114 350.1.13.10 4.2.7.2.686 [id number] [facility] 2024-03-28 11:00:00 2024-03-28 10:58:05 Outpatient R MARCELA NIÑO SEPEHR [facility] [id number] [facility] 2024-03-24 00:00:00 2024-03-24 13:20:44 Telephone Marcela Niño [facility] 1.2.840.114 350.1.13.10 4.2.7.2.686 [id number] [facility] 2024-03-22 05:31:00 2024-03-23 18:05:00 Outpatient R MARCELA NIÑO SEPEHR [facility] [id number] [facility] 2024-03-22 05:31:00 2024-03-23 18:05:00 Hospital Encounter Marcela Niño [facility] 1.2.840.114 350.1.13.10 4.2.7.2.686 [id number] [facility] 2024-03-22 07:00:00 2024-03-22 09:35:00 Surgery Marcela Niño [facility] 1.2.840.114 350.1.13.10 4.2.7.2.686 [id number] [facility] 2024-03-21 00:00:00 2024-03-21 09:51:42 Telephone Marcela Niño [facility] 1.2.840.114 350.1.13.10 4.2.7.2.686 [id number] [facility] 2024-03-18 11:45:00 2024-03-18 12:00:00 Staff Radiographer Visit [facility] Fam Chung [facility] 1.2.840.114 350.1.13.10 4.2.7.2.686 [id number] [facility] 2024-03-18 10:00:00 2024-03-18 10:30:00 Office Visit Fam Chung [facility] ([facility]) 1.2.840.114 350.1.13.10 4.2.7.2.686 [id number] [id number] [facility] 2024-03-18 10:00:00 2024-03-18 10:00:00 Outpatient R FAM CHUNG [facility] [id number] [facility] 2024-03-14 00:00:00 2024-03-14 13:25:29 Telephone Marcela Niño [facility] 1.2.840.114 350.1.13.10 4.2.7.2.686 [id number] [facility] 2024-03-14 10:25:44 2024-03-14 10:25:44 Outpatient [facility] [id number] Kelvin Shanice Simone 2024-03-08 00:00:00 2024-03-11 11:27:24 Telephone Marcela Niño [facility] 1.2.840.114 350.1.13.10 4.2.7.2.686 [id number] [facility] 2024-03-10 10:30:00 2024-03-10 10:30:00 Outpatient R HERMAN BANG [facility] [id number] [facility] 2024-02-29 00:00:00 2024-02-29 15:32:05 Telephone [facility] 1.2.840.114 350.1.13.10 4.2.7.2.686 [id number] [facility] 2024-02-22 14:01:05 2024-02-22 14:01:05 Anesthesia Event Chay Greco [facility] 1.2.840.114 350.1.13.10 4.2.7.2.686 [id number] [id number] [facility] 2024-01-29 00:00:00 2024-02-02 14:16:46 Telephone [facility] 1.2.840.114 350.1.13.10 4.2.7.2.686 [id number] [facility] 2024-02-01 00:00:00 2024-02-01 15:14:22 Telephone [facility] 1.2.840.114 350.1.13.10 4.2.7.2.686 [id number] [facility] 2024-01-14 00:00:00 2024-01-18 13:39:52 Telephone [facility] 1.2.840.114 350.1.13.10 4.2.7.2.686 [id number] [facility] 2024-01-18 00:00:00 2024-01-18 13:28:18 Case Management Ruth Kessler [facility] 1.2.840.114 350.1.13.10 4.2.7.2.686 [id number] [facility] 2024-01-12 00:00:00 2024-01-13 09:36:13 Telephone [facility] 1.2.840.114 350.1.13.10 4.2.7.2.686 [id number] [facility] 2024-01-07 10:46:33 2024-01-07 10:46:33 Outpatient SFA [facility] [id number] Kelvin Nichols 2024-01-07 00:00:00 2024-01-07 00:00:00 Outpatient Visit SFA [id number] Kelvin Nichols 2023-12-25 00:00:00 2023-12-25 15:55:18 [facility] 1.0.114 350.1.13.10 4.2.7.2.686 [id number] [facility] 2023-12-24 09:00:00 2023-12-24 09:56:04 Outpatient R ALBINA ALEXANDRE [facility] [id number] [facility] 2023-12-24 09:00:00 2023-12-24 09:56:04 Office Visit Mary Tong Ayezel M [facility] 1.2840.114 350.1.13.10 4.2.7.2.686 [id number] [facility] 2023-12-11 00:00:00 2023-12-11 00:00:00 Telephone [place] 1.2840.114 350.1.13.10 4.2.7.2.686 [id number] [facility] 2023-12-08 00:00:00 2023-12-08 00:00:00 Letter (Out) [place] [facility] 1.2.840.114 350.1.13.10 4.2.7.2.686 [id number] [facility] 2023-12-04 10:15:00 2023-12-04 11:16:35 Outpatient R MARCELA NIÑO SEPEHR [facility] [id number] [facility] 2023-12-04 10:15:00 2023-12-04 11:16:35 Office Visit Marcela Niño [facility] 1.0.114 350.1.13.10 4.2.7.2.686 [id number] [facility] 2023-11-25 10:00:00 2023-11-25 11:35:18 Outpatient R HECTOR CONTRERAS [facility] [id number] [facility] 2023-11-25 10:00:00 2023-11-25 11:35:18 [facility] 1.840.114 350.1.13.10 4.2.7.2.686 [id number] [facility] 2023-11-17 08:30:37 2023-11-17 08:30:37 Outpatient SFA [facility] [id number] Kelvin Nichols 2023-11-09 00:00:00 2023-11-09 00:00:00 Multidisci plinary Conference Jesús Freeman [facility] 1..114 350.1.13.10 4.2.7.2.686 [id number] [facility] 2023-11-04 15:30:00 2023-11-04 15:50:18 Outpatient R MARCELA NIÑO SEPEHR [facility] [id number] [facility] 2023-11-04 15:30:00 2023-11-04 15:50:18 Office Visit Marcela Niño [facility] 1..840.114 350.1.13.10 4.2.7.2.686 [id number] [facility] 2023-10-16 10:35:28 2023-10-16 23:59:00 Hospital Encounter Neida Pina [facility] 1.840.114 350.1.13.10 4.2.7.2.686 [id number] [facility] 2023-10-16 10:35:18 2023-10-16 23:59:00 Outpatient R NEIDA PINA [facility] [id number] [facility] 2023-10-16 10:35:18 2023-10-16 23:59:00 [facility] 1.840.114 350.1.13.10 4.2.7.2.686 [id number] [facility] 2023-10-12 00:00:00 2023-10-12 00:00:00 Multidisci plinary Conference Jesús Freeman [facility] 1.0.114 350.1.13.10 4.2.7.2.686 [id number] [facility] 2023-10-09 10:00:00 2023-10-09 10:30:15 Outpatient R HOSSEIN HARRIS [facility] [id number] [facility] 2023-10-09 10:00:00 2023-10-09 10:30:15 Office Visit Hossein Harris [facility] [employer] [facility] 1.0.114 350.1.13.10 4.2.7.2.686 [id number] [facility] 2023-09-18 10:45:00 2023-09-18 11:00:00 Staff Radiographer Visit [facility] 1.840.114 350.1.13.10 4.2.7.2.686 [id number] [facility] 2023-09-18 10:00:00 2023-09-18 10:30:00 Office Visit Fam Chung [facility] 1.114 350.1.13.10 4.2.7.2.686 [id number] [facility] 2023-09-18 10:00:00 2023-09-18 10:00:00 Outpatient R FAM CHUNG [facility] [id number] [facility] 2023-08-24 00:00:00 2023-08-24 00:00:00 Patient Secure Msg Doctor Unassigned, [facility] 1.114 350.1.13.10 4.2.7.2.686 [id number] [facility] 2023-08-20 10:10:51 2023-08-20 23:59:00 Outpatient R HERMAN BANG [facility] [id number] [facility] 2023-08-20 10:10:51 2023-08-20 23:59:00 Hospital Encounter Herman Bang [facility] 1..114 350.1.13.10 4.2.7.2.686 [id number] [facility] 2023-08-18 08:24:47 2023-08-18 08:24:47 Outpatient SFA [facility] [id number] Kelvin Nichols 2023-08-06 00:00:00 2023-08-06 00:00:00 Case Management Beti [facility] 1.114 350.1.13.10 4.2.7.2.686 [id number] [facility] 2023-08-06 00:00:00 2023-08-06 00:00:00 Telephone Beti [facility] 1..114 350.1.13.10 4.2.7.2.686 [id number] [facility] 2023-07-29 00:00:00 2023-07-29 00:00:00 Telephone Ruth Kessler [facility] 1.114 350.1.13.10 4.2.7.2.686 [id number] [facility] 2023-07-29 00:00:00 2023-07-29 00:00:00 Patient Secure Msg Checo Ruth [facility] 1..114 350.1.13.10 4.2.7.2.686 [id number] [facility] 2023-07-27 09:00:00 2023-07-27 09:43:39 Outpatient MARIA M CARVAJAL [facility] [id number] [facility] 2023-07-27 09:00:00 2023-07-27 09:43:39 Office Visit Ruth Kessler [facility] 1.84.114 350.1.13.10 4.2.7.2.686 [id number] [facility] 2023-05-19 08:27:45 2023-05-19 08:27:45 Outpatient [facility] [id number] Kelvin Nichols 2023-05-05 00:00:00 2023-05-05 00:00:00 [facility]..114 350.1.13.10 4.2.7.2.686 [id number] [facility] 2023-05-04 10:00:00 2023-05-04 10:01:40 Outpatient MARIA M CARVAJAL [facility] [id number] [facility] 2023-05-04 10:00:00 2023-05-04 10:01:40 Office Visit Kate Martin [facility] 1.2.840.114 350.1.13.10 4.2.7.2.686 [id number] [facility] 2023-05-04 00:00:00 2023-05-04 00:00:00 Letter (Out) Kate Martin [facility] 1.2.840.114 350.1.13.10 4.2.7.2.686 [id number] [facility] 2023-04-08 10:19:22 2023-04-08 10:19:22 Outpatient SFA [facility] [id number] Kelvin Nichols 2023-03-27 00:00:00 2023-03-27 00:00:00 Telephone Ruth Kessler [facility] 1.2.840.114 350.1.13.10 4.2.7.2.686 [id number] [facility] 2023-03-19 00:00:00 2023-03-19 00:00:00 Orders Only Doctor Unassigned, [facility] 1.2.840.114 350.1.13.10 4.2.7.2.686 [id number] [facility] 2023-03-18 11:45:00 2023-03-18 12:00:00 Staff Radiographer Visit [facility] 1.2.840.114 350.1.13.10 4.2.7.2.686 [id number] [facility] 2023-03-18 10:00:00 2023-03-18 11:00:00 Office Visit [facility] 1.2.840.114 350.1.13.10 4.2.7.2.686 [id number] [facility] 2023-03-18 10:00:00 2023-03-18 10:00:00 Outpatient [facility] [id number] [facility] 2023-03-18 00:00:00 2023-03-18 00:00:00 Telephone [facility] 1..114 350.1.13.10 4.2.7.2.686 [id number] [facility] 2023-03-18 00:00:00 2023-03-18 00:00:00 Letter (Out) [facility] 1..114 350.1.13.10 4.2.7.2.686 [id number] [facility] 2023-03-03 08:31:53 2023-03-03 08:31:53 Outpatient SFA [facility] [id number] Kelvin Shanice Nichols 2023-03-03 00:00:00 2023-03-03 00:00:00 Case Management Adriano Yeung [facility] 1..114 350.1.13.10 4.2.7.2.686 [id number] [facility] 2023-02-02 10:30:00 2023-02-02 11:13:10 Outpatient KRISH SMITH [facility] [id number] [facility] 2023-02-02 10:30:00 2023-02-02 11:13:10 Office Visit Heladio Han Brandon P [facility] 1..114 350.1.13.10 4.2.7.2.686 [id number] [facility] 2023-02-02 00:00:00 2023-02-02 00:00:00 Orders Only Doctor Unassigned, [facility] 1..114 350.1.13.10 4.2.7.2.686 [id number] [facility] 2023-01-12 00:00:00 2023-01-12 00:00:00 Patient Secure Msg Doctor Unassigned, [facility] 1.2.840.114 350.1.13.10 4.2.7.2.686 [id number] [facility] 2023-01-01 00:00:00 2023-01-01 00:00:00 Orders Only Doctor Unassigned, [facility] 1.2.840.114 350.1.13.10 4.2.7.2.686 [id number] [facility] 2022-12-31 10:27:03 2022-12-31 10:27:03 Outpatient [facility] [id number] Kelvin Nichols 2022-11-12 00:00:00 2022-11-12 00:00:00 Patient Secure Msg Doctor Unassigned, [facility] 1.2.840.114 350.1.13.10 4.2.7.2.686 [id number] [facility] 2022-11-11 09:30:56 2022-11-11 09:30:56 Outpatient [facility] [id number] Kelvin Nichols 2022-08-12 09:00:43 2022-08-12 09:00:43 Outpatient [facility] [id number] Kelvin Nichols 2022-06-13 08:27:11 2022-06-13 08:27:11 Outpatient [facility] [id number] Kelvin Nichols 2022-05-27 09:54:36 2022-05-27 09:54:36 Outpatient [facility] [id number] Kelvin Shanice Nichols Results Test Description Test Time Test Comments Results Result Co mments Source Quantiferon-Tb [id number] 17:14:23* Test Item Value Reference Range Interpretation Comme nts Nil (test code = 75272-2) 0.033 IU/mL TB1 minus Nil (test code = 89791-2) 0.046 IU/mL TB2 minus Nil (test code = 3214397976) 0.008 IU/mL Mitogen minus Nil (test code = 89644-8) 9.967 IU/mL QFT Gold Plus Result (test code = 58907-6) Negative Negative MIKAELA (test code = MIKAELA) The QuantiFERON? TB Gold Plus (in Tube) assay is intended for use as an aid in diagnosis of TB infection. This test uses a peptide cocktail of CD4+ and CD8+ T cell antigens to stimulate cells in whole blood. ?Detection of interferon-gamma is used to identify in vitro responses to these peptide antigens that are associated with Mycobacterium tuberculosis infection. A negative result suggests that M. tuberculosis infection is unlikely. ?However, in patients with high suspicion of exposure, a negative test should be repeated on a new sample. A positive result indicates an interferon-gamma response to M. tuberculosis antigens, suggesting infection with M. tuberculosis. Positive results in patients at low-risk for tuberculosis should be interpreted with caution and repeat testing on a new sample is advised. ?If repeat testing is positive, treatment may be indicated. ?Consult Infectious Disease Services for further recommendations. False positive results may occur in patients with prior infection with M. marinum, M. szulgai, or M. kansasii. For an indeterminate result, the likelihood of determining infection with M. tuberculosis cannot be determined. ?If clinically indicated, repeat testing on a new sample is advised. Diagnosing or excluding tuberculosis disease, and assessing the probability of LTBI, requires a combination of epidemiological, historical, medical, and diagnostic findings that should be considered when interpreting QFT-Plus results. ?See general guidance on the diagnosis and treatment of TB disease and LTBI https://www.cdc.gov/tb/pu blications/guidelines/def renetta.htm. [facility] Immunodeficiency Virus 1 (Hiv-1) by Quantitative [id number] 22:14:54* Test Item Value Reference Range Interpretation Comme nts HIV-1 Quantitative Interpretation (test code = 84219-2) Not Detected Not Detected MIKAELA (test code = MIKAELA) The Aptima HIV-1 Q uant assay is an FDA-approved nucleic acid amplification test (NAAT) for the quantitation of human immunodeficiency virus type 1 (HIV-1) RNA in human plasma from HIV-1 infected individuals. ?It is intended for use as an aid in monitoring the effects of antiretroviral treatment. ?It is not approved for use as a donor screening test for HIV-1 or as a diagnostic test to confirm the presence of HIV-1 infection. The quantitative range of this assay is 1.47 - 7.00 log copies/mL or 30 - 10,000,000 copies/mL. An interpretation of "Not Detected" does not rule out the presence of inhibitors in the patient specimen or HIV-1 RNA concentration below the level of detection of the test. ?Care should be taken when interpreting any single viral load determination. Detected, not Quantifiable: HIV-1 RNA detected, but at a level below 30 copies/mL (1.47 log copies/mL). ?HIV-1 RNA concentration is below the lower limit of quantitation of the assay. Indeterminate: Error indicated in the generation of the result. ?Please submit a new specimen for repeat testing if clinically indicated. Lab Interpretation (test code = 71298-2) [facility] [id number] 21:01:55* Test Item Value Reference Range Interpretation Comme nts CD4 % (test code = 8123-2) 24 % 31-60 L CD4 Absolute (test code = 92191-5) [phone] L Lab Interpretation (test cod e = 63997-8) Abnormal [facility] CenterIntubation[facility]24-[facility] 12:20:00Niranjan Eubanks MD ? ? 05/03/2024 ?7:38 AMIntubationDate/Time: 05/03/2024 7:20 AMUrgency: elective Airway not difficult General Information and Staff Patient location during procedure: ORPerformed: resident/MASTER OF CEREMONIES Performed by: Niranjan Eubanks, MDAuthorized by: Samson Avalos MD ? Indications and Patient ConditionIndications for airway management: anesthesiaSpontaneous ventilation: presentSedation level: deepPreoxygenated: yesPatient position: sniffingMILS maintained throughoutMask difficulty assessment: 2 - vent by mask + OA or adjuvant +/- NMBA Final Airway DetailsFinal airway type: endotrachealairway Successful airway: ETT and TITA tubeCuffed: yes Successful intubation technique: direct laryngoscopyFacilitating devices/methods: intubating styletEndotracheal tube insertion site: oralBlade: MacintoshBlade size: #3ETT size (mm): 7.5Cormack-Lehane Classification: grade IIa - partial view of glottisPlacement verified by: chest auscultation and capnometry Measured from: teethETT to teeth (cm): 22Number of attempts at approach: 1Ventilation between attempts: noneNumber of other approaches att empted: 0 Additional CommentsSmooth, atraumatic, dentition and lips unchanged from pre-op.[facility] CenterABG+COOX+NA+K+GLU+CA2+2024-04-02 03:52:55* Test Item Value Reference Range Interpretation Comme nts PH (test code = 2) 7.45 7.35-7.45 PCO2 (test code = 0768438451) 37 35-45 PO2 (test code = 5534191680) 102 80-100 H HCO3 (test code = 0814400971) 25 22-26 BE (test code = 4628717171) 0.9 -3.0-3.0 THB (test code = 6412011443) 12.1 g/dL 13.5-18.0 L %O2HB (test code = 1880250517) 97.3 % 94.0-99.0 %COHB ART (test code = 2870798205) 0.4 % 0.0-1.5 %METHB ART (test code = 7609413622) 0.3 % 0.4-1.5 L VOL%O2 ART (test code = 7327486955) 16.7 % 15.0-23.0 QUES NA (test code = 0830977222) 137 mmol/L 135-145 K+ (test code = 4594223549) 4.0 mmol/L 3.5-5.0 AC CA IONZ (test code = 6892655230) 4.50 mg/dL 4.50-5.30 GLUCOSE (test code = 0100492005) 120 mg/dL 70-110 H Lab Interpretation (test cod e = 34470-7) [facility] 03:50:49* Test Item Value Reference Range Interpretation Comme nts PH (test code = 2) 7.44 7.35-7.45 PCO2 (test code = 6425302564) 34 35-45 L PO2 (test code = 0933189511) 253 80-100 H HCO3 (test code = 3384100769) 23 22-26 BE (test code = 1196027241) -1.0 -3.0-3.0 THB (test code = 8409598747) 11.3 g/dL 13.5-18.0 L %O2HB (test code = 3095784340) 98.8 % 94.0-99.0 %COHB ART (test code = 4760445735) 0.2 % 0.0-1.5 %METHB ART (test code = 5009712444) 0.4 % 0.4-1.5 VOL%O2 ART (test code = 0412160478) 16.3 % 15.0-23.0 QUES NA (test code = 2786760451) 134 mmol/L 135-145 L K+ (test code = 5194187989) 3.9 mmol/L 3.5-5.0 AC CA IONZ (test code = 8429532505) 4.60 mg/dL 4.50-5.30 GLUCOSE (test code = 8075816718) 92 mg/dL 70-110 Lab Interpretation (test cod e = 99634-7) Abnormal [facility] WITH [id number] 00:05:14* Test Item Value Reference Range Interpretation Comme nts WBC (test code = 6690-2) 7.77 4.20-10.70 RBC (test code = 789-8) 3.57 4.26-5.52 L HGB (test code = 718-7) 10.2 g/dL 12.2-16.4 L HCT (test code = 4544-3) 30.6 % 38.4-49.3 L MCV (test code = 787-2) 85.7 fL 81.7-95.6 MCH (test code = 785-6) 28.6 pg 26.1-32.7 MCHC (test code = 786-4) 33.3 g/dL 31.2-35.0 RDW-SD (test code = 30955-8) 42.0 fL 38.5-51.6 RDW-CV (test code = 788-0) 13.4 % 12.1-15.4 PLT (test code = 777-3) 232 150-328 MPV (test code = 38155-9) 8.8 fL 9.8-13.0 L NRBC/100 WBC (test code = 7358017458) 0.0 0.0-10.0 NRBC x10^3 (test code = 0415320856) See_Comment [Automated messa ge] The system which generated this result transmitted reference range: 10*3/?L. The reference range was not used to interpret this result as normal/abnormal. GRAN MAT (NEUT) % (test code = 770-8) 88.9 % IMM GRAN % (test code = 5158583450) 0.30 % LYMPH % (test code = 736-9) 8.4 % MONO % (test code = 5905-5) 2.2 % EOS % (test code = 713-8) 0.1 % BASO % (test code = 706-2) 0.1 % GRAN MAT x10^3(ANC) (test code = 2549509248) 6.91 10*3/uL 1.99-6.95 IMM GRAN x10^3 (test code = 2768047157) 0.00-0.06 LYMPH x10^3 (test code = 731-0) 0.65 10*3/uL 1.09-3.23 L MONO x10^3 (test code = 742-7) 0.17 10*3/uL 0.36-1.02 L EOS x10^3 (test code = 711-2) 0.06-0.53 L BASO x10^3 (test code = 704-7) 0.01-0.09 Lab Interpretation (test code = 68475-8) Abnormal [facility] WITH [id number] 00:05:14* Test Item Value Reference Range Interpretation Comme nts WBC (test code = 6690-2) 7.77 4.20-10.70 RBC (test code = 789-8) 3.57 4.26-5.52 L HGB (test code = 718-7) 10.2 g/dL 12.2-16.4 L HCT (test code = 4544-3) 30.6 % 38.4-49.3 L MCV (test code = 787-2) 85.7 fL 81.7-95.6 MCH (test code = 785-6) 28.6 pg 26.1-32.7 MCHC (test code = 786-4) 33.3 g/dL 31.2-35.0 RDW-SD (test code = 62539-6) 42.0 fL 38.5-51.6 RDW-CV (test code = 788-0) 13.4 % 12.1-15.4 PLT (test code = 777-3) 232 150-328 MPV (test code = 16317-8) 8.8 fL 9.8-13.0 L NRBC/100 WBC (test code = 1958442026) 0.0 0.0-10.0 NRBC x10^3 (test code = 9973674312) See_Comment [Automated test companya ge] The system which generated this result transmitted reference range: 10*3/?L. The reference range was not used to interpret this result as normal/abnormal. GRAN MAT (NEUT) % (test code = 770-8) 88.9 % IMM GRAN % (test code = 4499084929) 0.30 % LYMPH % (test code = 736-9) 8.4 % MONO % (test code = 5905-5) 2.2 % EOS % (test code = 713-8) 0.1 % BASO % (test code = 706-2) 0.1 % GRAN MAT x10^3(ANC) (test code = 5849968735) 6.91 10*3/uL 1.99-6.95 IMM GRAN x10^3 (test code = 3873836148) 0.00-0.06 LYMPH x10^3 (test code = 731-0) 0.65 10*3/uL 1.09-3.23 L MONO x10^3 (test code = 742-7) 0.17 10*3/uL 0.36-1.02 L EOS x10^3 (test code = 711-2) 0.06-0.53 L BASO x10^3 (test code = 704-7) 0.01-0.09 Lab Interpretation (test code = 50962-7) Abnormal [facility] GLUCOSE (AUTOMATED)2023-10-16 17:09:52* Test Item Value Reference Range Interpretation Comme nts POCT GLU (test code = 7940288877) 101 mg/dL 70-110 Lab Interpretation (test cod e = 01769-8) [facility] [id number] 00:00:00Please see endoscopic findings from clinic [facility]20[facility] [id number] 00:00:00Please see endoscopic findings from clinic note from 10/09/2023.[facility] FLEXIBLE SCOPE [id number] 00:00:00Please see endoscopic findings from clinic note [facility] 10[facility]09[facility]2023[facility] E[facility] 2023-10-09 00:00:00Please see endoscopic findings from clinic [facility] 2023-08-20 20:37:34EXAM: CT SOFT TISSUE NECK W CONTRAST HISTORY: 63 years-old Male; Provided indication: Head/neck cancer, staging extensive recurrent BCC of nose . TECHNIQUE: Contrast enhanced CT study of the neck wasperformed with imagesobtained from the skull base to the thoracic inlet. Coronal and sagittalreformats were obtained. COMPARISON: None. FINDINGS: The visualized parts of brain and orbits reveal no acute findings. Focalencephalomalacia of the medial left cerebellum is noted, could be due toremote ischemic infarction [series 4 image 56]. There were no mucosal or edil lesions. Post Mohs micrographic surgery [MMS] of the right nasal BCC with largedefect in the right nasal alae, in and around image29 series 2. There isnothing specifically concerning for local recurrence. Oval-shaped enhancing structures superficial to left masseter and anteriorto the left parotid [series 2 images 27-32) likely represents accessoryparotid tissue despite the enhancement. No other suspicious or enlargedcervicallymph nodes. There were no mucosal or edil lesions. [facility] [id number] 17:15:57* Test Item Value Reference Range Interpretation Comme nts POCT Creatinine (test code = 7954435309) 1.0 mg/dL 0.6-1.3 Lab Interpretation (test cod e = 34028-3) [facility],IMMUNOASSAY [id number] 00:00:00* Test Item Value Reference Range Interpretation Comme nts OCCULT BLD, FECAL (test code = 33216) NEGATIVE Kelvin Prasad AustinOCCULT BLD,FECAL,IMMUNOASSAY [id number] 00:00:00* Test Item Value Reference Range Interpretation Comme nts OCCULT BLD, FECAL (test code = 20481) NEGATIVE Kelvin F AustinHIV-2 RNA BY [id number] 00:00:00* Test Item Value Reference Range Interpretation Comme nts HIV-2 RNA RESULT (test code = 21563) NOT DETEC COPIES/ML HIV-2 RNA VIRAL LOG (test code = 55443) NOT DETEC LOGCOPIES/ML HIV-2 RNA INTERPRETATION (test code = 55693) NOT DETECTED Kelvin Prasad AustinHIV-2 RNA BY [id number] 00:00:00* Test Item Value Reference Range Interpretation Comme nts HIV-2 RNA RESULT (test code = 52618) NOT DETEC COPIES/ML HIV-2 RNA VIRAL LOG (test code = 52019) NOT DETEC LOGCOPIES/ML HIV-2 RNA INTERPRETATION (test code = 06165) NOT DETECTED Kelvin F AustinHEMOGLOBIN [id number] 00:00:00* Test Item Value Reference Range Interpretation Comme nts HEMOGLOBIN A1c (test code = 89464) 5.5 % Kelvin NicholsCOMPREHENSIVE METABOLIC [id number] 00:00:00* Test Item Value Reference Range Interpretation Comme nts GLUCOSE (test code = 2217) 92 MG/DL BUN (test code = 2208) 16 MG/DL CREATININE (test code = 2214) 0.84 MG/DL eGFR (2020 CKD-EPI) (test code = 98890) 100 ML/MIN/1.73 CALC BUN/CREAT (test code = 2235) 19 RATIO SODIUM (test code = 2231) 140 MEQ/L POTASSIUM (test code = 2228) 4.7 MEQ/L CHLORIDE (test code = 2215) 102 MEQ/L CARBON DIOXIDE (test code = 2206) 23 MEQ/L CALCIUM (test code = 2209) 9.4 MG/DL PROTEIN, TOTAL (test code = 2229) 7.7 G/DL ALBUMIN (test code = 2201) 4.9 G/DL CALC GLOBULIN (test code = 2240) 2.8 G/DL CALC A/G RATIO (test code = 2234) 1.8 RATIO BILIRUBIN, TOTAL (test code = 2207) 0.3 MG/DL ALKALINE PHOSPHATASE (test code = 2204) 149 U/L AST (test code = 2218) 20 U/L ALT (test code = 2219) 15 U/L Kelvin NicholsHIV-1 QUANT, [id number] 00:00:00* Test Item Value Reference Range Interpretation Comme [facility] HIV-1 VIRAL COPY (test code = 4141) 52 COPIES/ML HIV-1 VIRAL LOG (test code = 10741) 1.716 LOGCOPIES/ML Kelvin NicholsHEMOGLOBIN [id number] 00:00:00* Test Item Value Reference Range Interpretation Comme [facility] HEMOGLOBIN A1c (test code = 64491) 5.5 % Kelvin NicholsCOMPREHENSIVE METABOLIC [id number] 00:00:00* Test Item Value Reference Range Interpretation Comme [facility] GLUCOSE (test code = 2217) 92 MG/DL BUN (test code = 2208) 16 MG/DL CREATININE (test code = 2214) 0.84 MG/DL eGFR (2020 CKD-EPI) (test code = 32155) 100 ML/MIN/1.73 CALC BUN/CREAT (test code = 2235) 19 RATIO SODIUM (test code = 2231) 140 MEQ/L POTASSIUM (test code = 2228) 4.7 MEQ/L CHLORIDE (test code = 2215) 102 MEQ/L CARBON DIOXIDE (test code = 2206) 23 MEQ/L CALCIUM (test code = 2209) 9.4 MG/DL PROTEIN, TOTAL (test code = 2229) 7.7 G/DL ALBUMIN (test code = 2201) 4.9 G/DL CALC GLOBULIN (test code = 2240) 2.8 G/DL CALC A/G RATIO (test code = 2234) 1.8 RATIO BILIRUBIN, TOTAL (test code = 2207) 0.3 MG/DL ALKALINE PHOSPHATASE (test code = 2204) 149 U/L AST (test code = 2218) 20 U/L ALT (test code = 2219) 15 U/L Kelvin NicholsHIV-1 QUANT, [id number] 00:00:00* Test Item Value Reference Range Interpretation Comme nts HIV-1 VIRAL COPY (test code = 4141) 52 COPIES/ML HIV-1 VIRAL LOG (test code = 05409) 1.716 LOGCOPIES/ML Kelvin NicholsCD4 (T4) [id number] 00:00:00* Test Item Value Reference Range Interpretation Comme nts ABSOLUTE LYMPHOCYTES (test c ode = 90741) 1984 PERUL PERCENT CD4 (test code = 49819) 17.9 % ABSOLUTE CD4 (test code = 07438) 355 PERUL Kelvin Prasad AustinCD4 (T4) [id number] 00:00:00* Test Item Value Reference Range Interpretation Comme nts ABSOLUTE LYMPHOCYTES (test c ode = 51802) 1984 PERUL PERCENT CD4 (test code = 13402) 17.9 % ABSOLUTE CD4 (test code = 62625) 355 PERUL Kelvin Prasad AustinCD4/CD8 LYMPHOCYTE [id number] 00:00:00* Test Item Value Reference Range Interpretation Comme nts ABSOLUTE LYMPHOCYTES (test c ode = 03121) 1243 PERUL PERCENT CD4 (test code = 96044) 18.5 % ABSOLUTE CD4 (test code = 70421) 230 PERUL PERCENT CD8 (test code = 41553) 60.8 % ABSOLUTE CD8 (test code = 98424) 756 PERUL CD4/CD8 RATIO (test code = 43420) 0.30 Kelvin NicholsLIPID PANEL WITH REFLEX DIRECT [id number] 00:00:00* Test Item Value Reference Range Interpretation Comme nts CHOLESTEROL (test code = 2210) 189 MG/DL TRIGLYCERIDES (test code = 2232) 133 MG/DL HDL CHOLESTEROL (test code = 2220) 34 MG/DL CALC LDL CHOL (test code = 2237) 130 MG/DL RISK RATIO LDL/HDL (test cod e = 2238) 3.82 RATIO Kelvin NicholsCOMPREHENSIVE METABOLIC [id number] 00:00:00* Test Item Value Reference Range Interpretation Comme nts GLUCOSE (test code = 2217) 95 MG/DL BUN (test code = 2208) 10 MG/DL CREATININE (test code = 2214) 0.91 MG/DL eGFR AMER. (test cod e = 91911) 107 ML/MIN/1.73 eGFR NON- AMER. (test code = 53482) 93 ML/MIN/1.73 CALC BUN/CREAT (test code = 2235) 11 RATIO SODIUM (test code = 2231) 145 MEQ/L POTASSIUM (test code = 2228) 3.9 MEQ/L CHLORIDE (test code = 2215) 103 MEQ/L CARBON DIOXIDE (test code = 2206) 29 MEQ/L CALCIUM (test code = 2209) 9.6 MG/DL PROTEIN, TOTAL (test code = 2229) 6.9 G/DL ALBUMIN (test code = 2201) 4.4 G/DL CALC GLOBULIN (test code = 2240) 2.5 G/DL CALC A/G RATIO (test code = 2234) 1.8 RATIO BILIRUBIN, TOTAL (test code = 2207) 0.3 MG/DL ALKALINE PHOSPHATASE (test code = 2204) 104 U/L AST (test code = 2218) 22 U/L ALT (test code = 2219) 16 U/L [facility] [id number] 00:00:00* Test Item Value Reference Range Interpretation Comme nts WBC (test code = 1001) 5.4 K/UL RBC (test code = 1002) 4.19 M/UL HEMOGLOBIN (test code = 1003) 12.6 G/DL HEMATOCRIT (test code = 1004) 36.9 % MCV (test code = 1005) 88.1 fL MCH (test code = 1006) 30.1 PG MCHC (test code = 1007) 34.1 G/DL RDW (test code = 1038) 12.7 % NEUTROPHILS (test code = 1008) 67.5 % LYMPHOCYTES (test code = 1010) 22.0 % MONOCYTES (test code = 1011) 8.0 % EOSINOPHILS (test code = 1012) 1.7 % BASOPHILS (test code = 1013) 0.4 % IMMATURE GRANULOCYTES (test code = 1036) 0.4 % NUCLEATED RBCS (test code = 1065) 0.0 /100WBC'S PLATELET COUNT (test code = 1015) 288 K/UL ABSOLUTE NEUTROPHILS (test c ode = 1066) 3.65 K/UL ABSOLUTE LYMPHOCYTES (test c ode = 1067) 1.19 K/UL ABSOLUTE MONOCYTES (test cod e = 1068) 0.43 K/UL ABSOLUTE EOSINOPHILS (test c ode = 1040) 0.09 K/UL ABSOLUTE BASOPHILS (test cod e = 1069) 0.02 K/UL ABS IMMATURE GRANULOCYTES (t est code = 1020) 0.02 K/UL ABS NUCLEATED RBCS (test cod e = 75350) 0.00 K/UL Kelvin Prasad SimoneCD4/CD8 LYMPHOCYTE [id number] 00:00:00* Test Item Value Reference Range Interpretation Comme nts ABSOLUTE LYMPHOCYTES (test c ode = 98090) 1243 PERUL PERCENT CD4 (test code = 56281) 18.5 % ABSOLUTE CD4 (test code = 67256) 230 PERUL PERCENT CD8 (test code = 29731) 60.8 % ABSOLUTE CD8 (test code = 79518) 756 PERUL CD4/CD8 RATIO (test code = 50327) 0.30 Kelvin Prasad SimoneLIPID PANEL WITH REFLEX DIRECT [id number] 00:00:00* Test Item Value Reference Range Interpretation Comme nts CHOLESTEROL (test code = 2210) 189 MG/DL TRIGLYCERIDES (test code = 2232) 133 MG/DL HDL CHOLESTEROL (test code = 2220) 34 MG/DL CALC LDL CHOL (test code = 2237) 130 MG/DL RISK RATIO LDL/HDL (test cod e = 2238) 3.82 RATIO Kelvin Prasad SimoneCOMPREHENSIVE METABOLIC [id number] 00:00:00* Test Item Value Reference Range Interpretation Comme nts GLUCOSE (test code = 2217) 95 MG/DL BUN (test code = 2208) 10 MG/DL CREATININE (test code = 2214) 0.91 MG/DL eGFR AMER. (test cod e = 68515) 107 ML/MIN/1.73 eGFR NON- AMER. (test code = 96078) 93 ML/MIN/1.73 CALC BUN/CREAT (test code = 2235) 11 RATIO SODIUM (test code = 2231) 145 MEQ/L POTASSIUM (test code = 2228) 3.9 MEQ/L CHLORIDE (test code = 2215) 103 MEQ/L CARBON DIOXIDE (test code = 2206) 29 MEQ/L CALCIUM (test code = 2209) 9.6 MG/DL PROTEIN, TOTAL (test code = 2229) 6.9 G/DL ALBUMIN (test code = 2201) 4.4 G/DL CALC GLOBULIN (test code = 2240) 2.5 G/DL CALC A/G RATIO (test code = 2234) 1.8 RATIO BILIRUBIN, TOTAL (test code = 2207) 0.3 MG/DL ALKALINE PHOSPHATASE (test code = 2204) 104 U/L AST (test code = 2218) 22 U/L ALT (test code = 2219) 16 U/L Kelvin NicholsCBC W/AUTO [id number] 00:00:00* Test Item Value Reference Range Interpretation Comme nts WBC (test code = 1001) 5.4 K/UL RBC (test code = 1002) 4.19 M/UL HEMOGLOBIN (test code = 1003) 12.6 G/DL HEMATOCRIT (test code = 1004) 36.9 % MCV (test code = 1005) 88.1 fL MCH (test code = 1006) 30.1 PG MCHC (test code = 1007) 34.1 G/DL RDW (test code = 1038) 12.7 % NEUTROPHILS (test code = 1008) 67.5 % LYMPHOCYTES (test code = 1010) 22.0 % MONOCYTES (test code = 1011) 8.0 % EOSINOPHILS (test code = 1012) 1.7 % BASOPHILS (test code = 1013) 0.4 % IMMATURE GRANULOCYTES (test code = 1036) 0.4 % NUCLEATED RBCS (test code = 1065) 0.0 /100WBC'S PLATELET COUNT (test code = 1015) 288 K/UL ABSOLUTE NEUTROPHILS (test c ode = 1066) 3.65 K/UL ABSOLUTE LYMPHOCYTES (test c ode = 1067) 1.19 K/UL ABSOLUTE MONOCYTES (test cod e = 1068) 0.43 K/UL ABSOLUTE EOSINOPHILS (test c ode = 1040) 0.09 K/UL ABSOLUTE BASOPHILS (test cod e = 1069) 0.02 K/UL ABS IMMATURE GRANULOCYTES (t est code = 1020) 0.02 K/UL ABS NUCLEATED RBCS (test cod e = 04068) 0.00 K/UL Kelvin NicholsLIPID PANEL WITH REFLEX DIRECT [id number] 00:00:00* Test Item Value Reference Range Interpretation Comme nts CHOLESTEROL (test code = 2210) 212 MG/DL TRIGLYCERIDES (test code = 2232) 158 MG/DL HDL CHOLESTEROL (test code = 2220) 43 MG/DL CALC LDL CHOL (test code = 2237) 137 MG/DL RISK RATIO LDL/HDL (test cod e = 2238) 3.20 RATIO Kelvin Prasad AustinCD4/CD8 LYMPHOCYTE [id number] 00:00:00* Test Item Value Reference Range Interpretation Comme nts ABSOLUTE LYMPHOCYTES (test c ode = 78311) 1670 PERUL PERCENT CD4 (test code = 55751) 14.2 % ABSOLUTE CD4 (test code = 13826) 236 PERUL PERCENT CD8 (test code = 84573) 69.8 % ABSOLUTE CD8 (test code = 74034) 1166 PERUL CD4/CD8 RATIO (test code = 15530) 0.20 Kelvin NicholsLIPID PANEL WITH REFLEX DIRECT [id number] 00:00:00* Test Item Value Reference Range Interpretation Comme nts CHOLESTEROL (test code = 2210) 212 MG/DL TRIGLYCERIDES (test code = 2232) 158 MG/DL HDL CHOLESTEROL (test code = 2220) 43 MG/DL CALC LDL CHOL (test code = 2237) 137 MG/DL RISK RATIO LDL/HDL (test cod e = 2238) 3.20 RATIO Kelvin Prasad AustinCD4/CD8 LYMPHOCYTE [id number] 00:00:00* Test Item Value Reference Range Interpretation Comme nts ABSOLUTE LYMPHOCYTES (test c ode = 10075) 1670 PERUL PERCENT CD4 (test code = 62639) 14.2 % ABSOLUTE CD4 (test code = 76676) 236 PERUL PERCENT CD8 (test code = 21852) 69.8 % ABSOLUTE CD8 (test code = 27779) 1166 PERUL CD4/CD8 RATIO (test code = 47270) 0.20 Kelvin Prasad AustinPSA, [id number] 00:00:00* Test Item Value Reference Range Interpretation Comme nts PSA, TOTAL (test code = 2606) 0.70 NG/ML Kelvin Prasad SimonePSA, [id number] 00:00:00* Test Item Value Reference Range Interpretation Comme nts PSA, TOTAL (test code = 2606) 0.70 NG/ML Kelvin Prasad SimoneCOMPREHENSIVE METABOLIC [id number] 00:00:00* Test Item Value Reference Range Interpretation Comme nts GLUCOSE (test code = 2217) 93 MG/DL BUN (test code = 2208) 14 MG/DL CREATININE (test code = 2214) 0.98 MG/DL eGFR AMER. (test cod e = 80945) 99 ML/MIN/1.73 eGFR NON- AMER. (test code = 87525) 86 ML/MIN/1.73 CALC BUN/CREAT (test code = 2235) 14 RATIO SODIUM (test code = 2231) 141 MEQ/L POTASSIUM (test code = 2228) 4.5 MEQ/L CHLORIDE (test code = 2215) 101 MEQ/L CARBON DIOXIDE (test code = 2206) 24 MEQ/L CALCIUM (test code = 2209) 9.4 MG/DL PROTEIN, TOTAL (test code = 2229) 7.4 G/DL ALBUMIN (test code = 2201) 4.7 G/DL CALC GLOBULIN (test code = 2240) 2.7 G/DL CALC A/G RATIO (test code = 2234) 1.7 RATIO BILIRUBIN, TOTAL (test code = 2207) 0.3 MG/DL ALKALINE PHOSPHATASE (test code = 2204) 114 U/L AST (test code = 2218) 19 U/L ALT (test code = 2219) 18 U/L Kelvin Prasad SimoneCOMPREHENSIVE METABOLIC [id number] 00:00:00* Test Item Value Reference Range Interpretation Comme nts GLUCOSE (test code = 2217) 93 MG/DL BUN (test code = 2208) 14 MG/DL CREATININE (test code = 2214) 0.98 MG/DL eGFR AMER. (test cod e = 17236) 99 ML/MIN/1.73 eGFR NON- AMER. (test code = 81116) 86 ML/MIN/1.73 CALC BUN/CREAT (test code = 2235) 14 RATIO SODIUM (test code = 2231) 141 MEQ/L POTASSIUM (test code = 2228) 4.5 MEQ/L CHLORIDE (test code = 2215) 101 MEQ/L CARBON DIOXIDE (test code = 2206) 24 MEQ/L CALCIUM (test code = 2209) 9.4 MG/DL PROTEIN, TOTAL (test code = 2229) 7.4 G/DL ALBUMIN (test code = 2201) 4.7 G/DL CALC GLOBULIN (test code = 2240) 2.7 G/DL CALC A/G RATIO (test code = 2234) 1.7 RATIO BILIRUBIN, TOTAL (test code = 2207) 0.3 MG/DL ALKALINE PHOSPHATASE (test code = 2204) 114 U/L AST (test code = 2218) 19 U/L ALT (test code = 2219) 18 U/L Kelvin Prasad [facility] W/AUTO [id number] 00:00:00* Test Item Value Reference Range Interpretation Comme nts WBC (test code = 1001) 5.8 K/UL RBC (test code = 1002) 4.00 M/UL HEMOGLOBIN (test code = 1003) 12.3 G/DL HEMATOCRIT (test code = 1004) 35.2 % MCV (test code = 1005) 88.0 fL MCH (test code = 1006) 30.8 PG MCHC (test code = 1007) 34.9 G/DL RDW (test code = 1038) 14.7 % NEUTROPHILS (test code = 1008) 62.7 % LYMPHOCYTES (test code = 1010) 26.9 % MONOCYTES (test code = 1011) 8.4 % EOSINOPHILS (test code = 1012) 1.5 % BASOPHILS (test code = 1013) 0.5 % PLATELET COUNT (test code = 1015) 172 K/UL Kelvin Prasad [facility] W/AUTO [id number] 00:00:00* Test Item Value Reference Range Interpretation Comme nts WBC (test code = 1001) 5.8 K/UL RBC (test code = 1002) 4.00 M/UL HEMOGLOBIN (test code = 1003) 12.3 G/DL HEMATOCRIT (test code = 1004) 35.2 % MCV (test code = 1005) 88.0 fL MCH (test code = 1006) 30.8 PG MCHC (test code = 1007) 34.9 G/DL RDW (test code = 1038) 14.7 % NEUTROPHILS (test code = 1008) 62.7 % LYMPHOCYTES (test code = 1010) 26.9 % MONOCYTES (test code = 1011) 8.4 % EOSINOPHILS (test code = 1012) 1.5 % BASOPHILS (test code = 1013) 0.5 % PLATELET COUNT (test code = 1015) 172 K/UL Kelvin F AustinCBC W/AUTO [id number] 00:00:00* Test Item Value Reference Range Interpretation Comme nts WBC (test code = 1001) TEST NOT PERFORME D K/UL RBC (test code = 1002) TEST NOT PERFORME D M/UL HEMOGLOBIN (test code = 1003) TEST NOT PERFORMED G/DL HEMATOCRIT (test code = 1004) TEST NOT PERFORMED % MCV (test code = 1005) TEST NOT PERFORMED fL MCH (test code = 1006) TEST NOT PERFORMED PG MCHC (test code = 1007) TEST NOT PERFORM ED G/DL RDW (test code = 1038) TEST NOT PERFORMED % NEUTROPHILS (test code = 1008) TEST NOT PERFORMED % LYMPHOCYTES (test code = 1010) TEST NOT PERFORMED % MONOCYTES (test code = 1011) TEST NOT PERFORMED % EOSINOPHILS (test code = 1012) TEST NOT PERFORMED % BASOPHILS (test code = 1013) TEST NOT PERFORMED % PLATELET COUNT (test code = 1015) TEST NOT PERFORMED K/UL Kelvin F AustinCBC W/AUTO [id number] 00:00:00* Test Item Value Reference Range Interpretation Comme nts WBC (test code = 1001) TEST NOT PERFORME D K/UL RBC (test code = 1002) TEST NOT PERFORME D M/UL HEMOGLOBIN (test code = 1003) TEST NOT PERFORMED G/DL HEMATOCRIT (test code = 1004) TEST NOT PERFORMED % MCV (test code = 1005) TEST NOT PERFORMED fL MCH (test code = 1006) TEST NOT PERFORMED PG MCHC (test code = 1007) TEST NOT PERFORM ED G/DL RDW (test code = 1038) TEST NOT PERFORMED % NEUTROPHILS (test code = 1008) TEST NOT PERFORMED % LYMPHOCYTES (test code = 1010) TEST NOT PERFORMED % MONOCYTES (test code = 1011) TEST NOT PERFORMED % EOSINOPHILS (test code = 1012) TEST NOT PERFORMED % BASOPHILS (test code = 1013) TEST NOT PERFORMED % PLATELET COUNT (test code = 1015) TEST NOT PERFORMED K/UL Kelvin F AustinCD4/CD8 LYMPHOCYTE [id number] 00:00:00* Test Item Value Reference Range Interpretation Comme nts ABSOLUTE LYMPHOCYTES (test c ode = 51577) 2212 PERUL PERCENT CD4 (test code = 26631) 8 % ABSOLUTE CD4 (test code = 40091) 177 PERUL PERCENT CD8 (test code = 42857) 82 % ABSOLUTE CD8 (test code = 30282) 1814 PERUL CD4/CD8 RATIO (test code = 38187) 0.10 Kelvin NicholsCD4/CD8 LYMPHOCYTE [id number] 00:00:00* Test Item Value Reference Range Interpretation Comme nts ABSOLUTE LYMPHOCYTES (test c ode = 75791) 2212 PERUL PERCENT CD4 (test code = 27942) 8 % ABSOLUTE CD4 (test code = 60231) 177 PERUL PERCENT CD8 (test code = 13702) 82 % ABSOLUTE CD8 (test code = 72859) 1814 PERUL CD4/CD8 RATIO (test code = 98584) 0.10 Kelvin NicholsLIPID [id number] 00:00:00* Test Item Value Reference Range Interpretation Comme nts CHOLESTEROL (test code = 2210) 204 MG/DL TRIGLYCERIDES (test code = 2232) 119 MG/DL HDL CHOLESTEROL (test code = 2220) 35 MG/DL CALC LDL CHOL (test code = 2237) 145 MG/DL RISK RATIO LDL/HDL (test cod e = 2238) 4.15 RATIO Kelvin NicholsCOMPREHENSIVE METABOLIC [id number] 00:00:00* Test Item Value Reference Range Interpretation Comme nts GLUCOSE (test code = 2217) 87 MG/DL BUN (test code = 2208) 9 MG/DL CREATININE (test code = 2214) 0.94 MG/DL eGFR AMER. (test cod e = 11241) 105 ML/MIN/1.73 eGFR NON- AMER. (test code = 15205) 90 ML/MIN/1.73 CALC BUN/CREAT (test code = 2235) 10 RATIO SODIUM (test code = 2231) 138 MEQ/L POTASSIUM (test code = 2228) 4.3 MEQ/L CHLORIDE (test code = 2215) 98 MEQ/L CARBON DIOXIDE (test code = 2206) 25 MEQ/L CALCIUM (test code = 2209) 9.7 MG/DL PROTEIN, TOTAL (test code = 2229) 8.1 G/DL ALBUMIN (test code = 2201) 4.8 G/DL CALC GLOBULIN (test code = 2240) 3.3 G/DL CALC A/G RATIO (test code = 2234) 1.5 RATIO BILIRUBIN, TOTAL (test code = 2207) 1.1 MG/DL ALKALINE PHOSPHATASE (test code = 2204) 141 U/L AST (test code = 2218) 17 U/L ALT (test code = 2219) 12 U/L Kelvin NicholsHIV-1 QUANT, [id number] 00:00:00* Test Item Value Reference Range Interpretation Comme kenya HIV-1 VIRAL COPY (test code = 4141) 3710 COPIES/ML HIV-1 VIRAL LOG (test code = 42824) 3.569 LOGCOPIES/ML Kelvin NicholsLIPID [id number] 00:00:00* Test Item Value Reference Range Interpretation Comme nts CHOLESTEROL (test code = 2210) 204 MG/DL TRIGLYCERIDES (test code = 2232) 119 MG/DL HDL CHOLESTEROL (test code = 2220) 35 MG/DL CALC LDL CHOL (test code = 2237) 145 MG/DL RISK RATIO LDL/HDL (test cod e = 2238) 4.15 RATIO Kelvin NicholsCOMPREHENSIVE METABOLIC [id number] 00:00:00* Test Item Value Reference Range Interpretation Comme nts GLUCOSE (test code = 2217) 87 MG/DL BUN (test code = 2208) 9 MG/DL CREATININE (test code = 2214) 0.94 MG/DL eGFR AMER. (test cod e = 88589) 105 ML/MIN/1.73 eGFR NON- AMER. (test code = 06867) 90 ML/MIN/1.73 CALC BUN/CREAT (test code = 2235) 10 RATIO SODIUM (test code = 2231) 138 MEQ/L POTASSIUM (test code = 2228) 4.3 MEQ/L CHLORIDE (test code = 2215) 98 MEQ/L CARBON DIOXIDE (test code = 2206) 25 MEQ/L CALCIUM (test code = 2209) 9.7 MG/DL PROTEIN, TOTAL (test code = 2229) 8.1 G/DL ALBUMIN (test code = 2201) 4.8 G/DL CALC GLOBULIN (test code = 2240) 3.3 G/DL CALC A/G RATIO (test code = 2234) 1.5 RATIO BILIRUBIN, TOTAL (test code = 2207) 1.1 MG/DL ALKALINE PHOSPHATASE (test code = 2204) 141 U/L AST (test code = 2218) 17 U/L ALT (test code = 2219) 12 U/L Kelvin NicholsHIV-1 QUANT, [id number] 00:00:00* Test Item Value Reference Range Interpretation Comme nts HIV-1 VIRAL COPY (test code = 4141) 3710 COPIES/ML HIV-1 VIRAL LOG (test code = 78608) 3.569 LOGCOPIES/ML Kelvin Nichols Consult Notes Date/Time Note Provider Source 2024-04-01 10:55:55 Associated Order(s): CONSULT PAIN SERVICES ANESTHESIOLOGY ACUTE PAIN MANAGEMENT INITIAL CONSULTATION 04/01/2024 Referring Provider: Balbina Reason for Consultation: Severe face pain POD #2 Chief Complaint: Acute pain History of Present illness: Alma Alberto is a 63 year old male, with a pertinent PMHx of large basal cell carcinoma POD #2 with ENT (also see below), who presents with above chief complaint. The pain is described as sharp and stabbing, worse at night between midnight and 2 am PAIN NRS Severity SCALE 0-10 Over Last 24 Hours (0 = no pain and 10 = worst pain imaginable or Mild/Mod/Severe): Best: 5/10 Worst: 10/10 Now: 03/19 Physical Exam: Vitals: 03/31/24 1925 03/31/24 2332 04/01/24 0427 04/01/24 0740 BP: 136/78 106/64 105/68 131/67 BP Location: Left arm Left arm Left arm Left arm Patient Position: Supine Supine Supine Sitting Pulse: 84 75 80 78 Resp: 18 18 18 18 Temp: 37.2 ?C (98.9 ?F) 35.9 ?C (96.6 ?F) 36.7 ?C (98.1 ?F) 36.7 ?C (98.1 ?F) TempSrc: SpO2: 99% 95% 95% 95% Weight: Height: GENERAL: Alma Alberto is a well developed, well nourished Medical Decision Making: Dx: POD #2 complex nasal/upper lip reconstruction Medications: -Recommend increasing Gabapentin 100mg TID---300mg TID -Recommend Oxycodone 10mg Q4HPRN -Recommend morphine 2gram q8HRs PRN -Monitor with telemetry and pulse oximetry -Robaxin 500mg QID -Cw other pain medications Interventions: N/a Psych: no maladaptive pain behaviors Rj Garza DO 10:56 AM 04/01/2024 Associated attestation - Ortega Owen MD - 04/01/2024 7:47 PM CDT I personally evaluated and examined the patient at the bedside with the team today td and agree with Dr. Garza's resident note as written. I actively participated in the decision-making process. Please see the resident's note for additional details. AN-ANESTHESIOLOGY [facility] - Health History and Physical Notes Date/Time Note Provider Source 2024-05-03 06:45:00 === Clinic H&P from, 04/15/24 reviewed with no interval changes, physical exam stable. Allergies reviewed. NPO status confirmed. Recent cough/fever/chest pains were denied. Patient agrees with surgical plan and consent was reviewed. Will proceed with paramedian forehead flap takedown, melolabial flap revision, local tissue rearrangement, full thickness skin graft, other indicated procedures. Jesús Freeman MD, MPH Otolaryngology PGY-3 Associated attestation - Marcela Niño MD - 05/03/2024 7:08 AM CDT Patient seen in pre-op. No changes to health. Re-discussed risks/complications.Patient understands and wants to proceed. 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 He was found to have right nasal alar BCC s/p radiation and sonidegib completed in 2022. He was diagnosed with recurrence in 07/2023 but had delay in care due to transportation issues. Had rhinectomy on 03/22/24 and then reconstruction on 03/30/24 after margins were confirmed to be negative. Pt is doing well post operatively and pain has decreased, highest pain level now is 3. He reports the nasal trumpets are falling out frequently. 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, including shoulder 06/18/2007 Personality disorder SCC (squamous cell carcinoma) 03/11/10 (R) eyebrow s/p (R) eyebrow Mohs surgery on 04/03/10 Tremor 08/10/2002 EFZ change to NVP due to this 07/27/02 Past Surgical History: Procedure Laterality Date ADJACENT TISSUE REARRANGEMENT Right 03/30/2024 Surgeon: Marcela Niño MD; Location: [facility] CARTILAGE GRAFT Right 03/30/2024 Surgeon: Marcela Niño MD; Location: [facility] OR LOC[facility] EXCISION CARTILAGE GRAFT DONOR SITE NOSE (SHX) Right 03/30/2024 Surgeon: Marcela Niño MD; Location: [facility] [place] EXCISION MALIG LESION>1.25CM 03/10/2010 S/P Mohs surgery (R) eyebrow SCC and A to T flap and excision of BCC of chin . FLAP COVERAGE - FACIAL 03/30/2024 Surgeon: Marcela Niño MD; Location: [facility] [place] PARAMEDIAN FOREHEAD FLAP PLACEMENT N/A 03/30/2024 Surgeon: Marcela Niño MD; Location: [facility] [place] TENDON REPAIR Left Left hand tendon surgery, TOTAL RHINECTOMY N/A 03/22/2024 Surgeon: Marcela Niño MD; Location: [facility] [place] No Known Allergies Current Outpatient Medications: celecoxib 200 mg capsule, Take 1 capsule by mouth in the morning and 1 capsule in the evening. Take with meals. Do all this for 14 days., Disp: 28 capsule, Rfl: 0 gabapentin 300 mg capsule, Take 1 capsule by mouth in the morning and 1 capsule at noon and 1 capsule in the evening. Do all this for 14 days., Disp: 42 capsule, Rfl: 0 mupirocin 2 % ointment, Apply to area(s) 3 (three) times daily., Disp: 22 g, Rfl: 3 sennosides-docusate sodium 8.6-50 mg per tablet, Take 1 tablet by mouth in the morning for 14 days., Disp: 14 tablet, Rfl: 0 ARIPiprazole 30 mg tablet, , Disp: , Rfl: acetaminophen (TYLENOL EXTRA STRENGTH) 500 mg tablet, Take 2 tablets by mouth every 8 (eight) hours., Disp: 42 tablet, Rfl: 0 methocarbamoL 500 mg tablet, Take 1 tablet by mouth 4 (four) times daily for 14 days., Disp: 56 tablet, Rfl: 0 mupirocin 2 % ointment, Apply to area(s) 3 (three) times daily., Disp: 22 g, Rfl: 0 buPROPion XL 150 mg 24 hr tablet, , Disp: , Rfl: ARIPiprazole 10 mg tablet, Take 1 tablet by mouth every evening., Disp: 30 tablet, Rfl: 0 buPROPion 100 mg tablet, Take 1 tablet by mouth in the morning., Disp: 30 tablet, Rfl: 0 docusate (COLACE) 100 mg capsule, Take 1 capsule by mouth in the morning., Disp: 7 capsule, Rfl: 0 oedhzofdul-mrbsmzsx-qfvpoh ala (ODEFSEY) 200-25-25 mg Tab, Take 1 tablet by mouth in the morning. Please keep appt, Disp: 30 tablet, Rfl: 11 meningococcal conj vaccine (SOPHIAO [id number], PF,) 10-5 mcg/0.5 mL injection, Inject 0.5 ml IM once and repeat in 2 months, Disp: 0.5 mL, Rfl: 1 mirtazapine 30 mg tablet, Take 1 tablet by mouth at bedtime., Disp: 30 tablet, Rfl: 3 propranoloL 40 mg tablet, Take 1 tablet by mouth in the morning and 1 tablet in the evening., Disp: 60 tablet, Rfl: 11 sodium chloride 0.65 % nasal spray, Use 2 Sprays in each nostril in the morning., Disp: 104 mL, Rfl: 1 traZODone 100 mg tablet, Take 1 tablet by mouth at bedtime., Disp: 7 tablet, Rfl: 0 cyclobenzaprine HCl (CYCLOBENZAPRINE ORAL), Take by mouth daily., Disp: , Rfl: PRIMIDONE ORAL, Take by mouth daily., Disp: , Rfl: proMETHazine 25 mg tablet, Take 1 tablet by mouth as needed for Nausea and Vomiting (N/V)., Disp: , Rfl: venlafaxine XR 150 mg 24 hr capsule, TAKE 2 CAPSULES BY MOUTH IN THE MORNING, Disp: , Rfl: Social History Socioeconomic History Marital status: Single Spouse name: Not on file Number of children: Not on file Years of education: Not on file Highest education level: Not on file Occupational History Occupation: disabled Tobacco Use Smoking status: Former Current packs/day: 0.50 Average packs/day: 0.5 packs/day for 30.0 years (15.0 ttl pk-yrs) Types: Cigarettes Smokeless tobacco: Never Tobacco comments: Smoke 10 cigarettes per day. Started smoking at age 20. Up to 3 ppd. Substance and Sexual Activity Alcohol use: Not Currently Drug use: Yes Types: Marijuana Comment: 1/4 joint per day. Started 08/01. Sexual activity: Not on file Other Topics Concern Not on file Social History Narrative Living in [place] in a RV. On disability Past TDCJ - finished time Not working. Denies drug use, rarely ETOH Has 13 y.o parrot and rescue dog Social Determinants of Health Financial Resource Strain: Low Risk (03/31/2024) Overall Financial Resource Strain (CARDIA) Difficulty of Paying Living Expenses: Not hard at all Food Insecurity: No Food Insecurity (03/31/2024) Hunger Vital Sign Worried About Running Out of Food in the Last Year: Never true Ran Out of Food in the Last Year: Never true Transportation Needs: Not on file Physical Activity: Inactive (03/31/2024) Exercise Vital Sign Days of Exercise per Week: 0 days Minutes of Exercise per Session: 0 min Stress: Not on file Social Connections: Unknown (03/31/2024) Social Connection and Isolation Panel [NHANES] Frequency of Communication with Friends and Family: More than three times a week Frequency of Social Gatherings with Friends and Family: Not on file Attends Christian Services: Not on file Active Member of Clubs or Organizations: Not on file Attends Club or Organization Meetings: Not on file Marital Status: Never Intimate Partner Violence: Not on file Housing Stability: Low Risk (03/31/2024) Housing Stability Vital Sign Unable to Pay for Housing in the Last Year: No Number of Places Lived in the Last Year: 1 Unstable Housing in the Last Year: No Family History Problem Relation Age of Onset Uterine Cancer Mother Skin Cancer Mother Diabetes Mother Asthma Mother Coronary Heart Disease Father 57 from a PA Other - see comments Sister unknown cancer,age unknown COPD (chronic obstructive pulmonary disease) Sister Hypertension Maternal Grandfather REVIEW OF SYSTEMS: As per HPI PHYSICAL EXAM: Constitutional: Vitals: 04/15/24 0949 BP: 131/73 Pulse: 75 SpO2: 100% General: Well-developed, well-nourished in no apparent distress. Appropriate affect. Head and Face: - Forehead flap well-healing and viable. Bolster taken down from harvest site and wound bed is granulating appropriately. - Right auricular cartilage site without hematoma, incision well-healing - Distal tip of melolabial flap with superficial necrosis, otherwise well-healing New xeroform dressings applied Nasal trumpets cleaned and replaced Several zaira removed DATA REVIEWED: Collected 03/22/2024 08:26 Status: Final result Visible to patient: No (manual release only) 0 Result Notes Component Final Diagnosis A. NOSE, TOTAL RHINECTOMY: - BASAL CELL CARCINOMA, INFILTRATIVE TYPE - MEASURING 3.0 CM IN BIGGEST DIMENSION - RESECTION MARGINS NEGATIVE FOR MALIGNANCY - CLOSEST MARGIN DEEP: 3 MM FROM DEEP AND 8 MM FROM PERIPHERAL MARGINS - NO LYMPHOVASCULAR OR PERINEURAL INVASION IDENTIFIED IMPRESSION/PLAN: 63 year old male with HIV, immunosupression, and multiple cutaneous malignancies presenting with recurrence BCC of nasal tip. His initial nasal BCC was treated with XRT and sonidegib. Rhinectomy on 03/22/24. Now s/p complex reconstruction with right paramedian, right melolabial, right auricular cartilage harvest, and septal hinge flap on 03/30/24. Paramedian flap looks healthy and harvest site is granulating well with bolster dressing. Melolabial flap with distal tip necrosis, but is otherwise healing well. Debrided today. We discussed second stage reconstructive surgery with plan for takedown of paramedian forehead flap, revision of paramedian and middle labial flaps, full-thickness skin graft, local advancement flaps as needed. We discussed at length the risks and benefits of the procedure with the risk including pain, bleeding, scarring, graft failure, poor cosmesis, painful or unattractive scarring. - Continue xeroform to paramedian trunk - Forehead bolster dressing replaced - Mupirocin to incisions and raw wound edges - We will submit case request for second stage reconstructive procedure - Consent signed in clinic today - RTC after procedure Ben Franco MD PGY-5, Otolaryngology Head & Neck Surgery I discussed this patient in detail with Ben Franco, including the patient's history, exam findings, and assessment and plan. On 04/15/24, I independently performed relevant portions of the history and exam and jointly participated in the decision making process. Please see the note for details. Marcela Niño MD Head & Neck Surgical Oncology and Reconstructive Surgery Department of Otolaryngology-Head and Neck Surgery [facility] T OTOLARYNGOLOGY [facility] 2024-03-30 12:51:18 ENT Pre-Op Note/Updated History and Physical 03/30/2024 Alma Alberto is a 63 year old male with a history of recurrent BCC s/p partial rhinectomy 03/22/24. To OR for reconstruction with PMFF/ear cartilage and any flaps and grafts as needed on 03/30/24 . - Patient seen and examined in Holding - No interval changes to patient's health since H&P from clinic visit dated 03/28/24 and copied below - The procedure was discussed with the patient, including risks, benefits, and potential alternatives. All questions were answered. - Informed consent was obtained and to be placed in chart Pradeep Aaron MD Department of Otolaryngology PGY-2 > Associated attestation - Marcela Niño MD - 03/30/2024 1:07 PM CDT Patient seen in pre-op. No changes to health. Re-discussed risks/complications. Patient understands and wants to proceed. 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 He was found to have right nasal alar BCC s/p radiation and sonidegib completed in 2022. Per patient, he never had MOHS procedure done for this. He was diagnosed with recurrence in 07/2023 but had delay in care due to transportation issues. Now s/p rhinectomy on 03/22/24. Here for post-op visit and discuss next steps. Doing well. Wound is painful. His reconstructive goal is have a tissue covering defect even if flat. 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 ANXIETY, promethazine dependant Chronic pansinusitis 02/01/2003 CVA (cerebral vascular accident) 2002 at [facility] HIV (human immunodeficiency virus infection) 08/10/1996 Hyperlipidemia Left hip pain 10/08/2002 past left proximal femur lesion 03/18/03, bone scan neg, bx n/d, 07/12 MRI lesion unchanged Other malignant neoplasm of skin of upper limb, including shoulder 06/18/2007 Personality disorder SCC (squamous cell carcinoma) 03/11/10 (R) eyebrow s/p (R) eyebrow Mohs surgery on 04/03/10 Tremor 08/10/2002 EFZ change to NVP due to this 07/27/02 Past Surgical History: Procedure Laterality Date EXCISION MALIG LESION>1.25CM 03/10/2010 S/P Mohs surgery (R) eyebrow SCC and A to T flap and excision of BCC of chin . TENDON REPAIR Left Left hand tendon surgery, TOTAL RHINECTOMY N/A 03/22/2024 Surgeon: Marcela Niño MD; Location: [facility] OR LOCATION No Known Allergies Current Outpatient Medications: HYDROcodone-acetaminophen 5-325 mg tablet, Take 1 tablet by mouth every 6 (six) hours as needed for Pain (scale 7-10) for up to 2 days. Indications: acute pain, Disp: 8 tablet, Rfl: 0 mupirocin 2 % ointment, Apply to area(s) 3 (three) times daily., Disp: 22 g, Rfl: 0 gabapentin 100 mg capsule, Take 1 capsule by mouth in the morning and 1 capsule at noon and 1 capsule in the evening., Disp: 21 capsule, Rfl: 0 mirtazapine 30 mg tablet, Take 1 tablet by mouth at bedtime., Disp: 30 tablet, Rfl: 3 oxyCODONE 5 mg immediate release tablet, Take 1 tablet by mouth every 6 (six) hours as needed for Pain (scale 7-10). Indications: acute pain, Disp: 10 tablet, Rfl: 0 propranoloL 40 mg tablet, Take 1 tablet by mouth in the morning and 1 tablet in the evening., Disp: 60 tablet, Rfl: 11 sodium chloride 0.65 % nasal spray, Use 2 Sprays in each nostril in the morning., Disp: 104 mL, Rfl: 1 traZODone 100 mg tablet, Take 1 tablet by mouth at bedtime., Disp: 7 tablet, Rfl: 0 PRIMIDONE ORAL, Take by mouth daily., Disp: , Rfl: proMETHazine 25 mg tablet, Take 1 tablet by mouth as needed for Nausea and Vomiting (N/V)., Disp: , Rfl: venlafaxine XR 150 mg 24 hr capsule, TAKE 2 CAPSULES BY MOUTH IN THE MORNING, Disp: , Rfl: ARIPiprazole 30 mg tablet, , Disp: , Rfl: buPROPion XL 150 mg 24 hr tablet, , Disp: , Rfl: amoxicillin-clavulanate (AUGMENTIN) 875-125 mg per tablet, Take 1 tablet by mouth in the morning and 1 tablet in the evening., Disp: 20 tablet, Rfl: 0 acetaminophen (TYLENOL EXTRA STRENGTH) 500 mg tablet, Take 2 tablets by mouth every 8 (eight) hours., Disp: 42 tablet, Rfl: 0 ARIPiprazole 10 mg tablet, Take 1 tablet by mouth every evening., Disp: 30 tablet, Rfl: 0 buPROPion 100 mg tablet, Take 1 tablet by mouth in the morning., Disp: 30 tablet, Rfl: 0 celecoxib 100 mg capsule, Take 2 capsules by mouth in the morning and 2 capsules in the evening. Take with meals., Disp: 28 capsule, Rfl: 0 docusate (COLACE) 100 mg capsule, Take 1 capsule by mouth in the morning., Disp: 7 capsule, Rfl: 0 smidqhuwfb-jtswjopv-ikrvdf ala (ODEFSEY) 200-25-25 mg Tab, Take 1 tablet by mouth in the morning. Please keep appt, Disp: 30 tablet, Rfl: 11 ibuprofen 800 mg tablet, Take one tab every 8 hrs with food prn severe pain, Disp: 30 tablet, Rfl: 2 meningococcal conj vaccine (MENVEO O-S-Q-W-135-DIP, KHLOE,) 10-5 mcg/0.5 mL injection, Inject 0.5 ml IM once and repeat in 2 months, Disp: 0.5 mL, Rfl: 1 cyclobenzaprine HCl (CYCLOBENZAPRINE ORAL), Take by mouth daily., Disp: , Rfl: Social History Socioeconomic History Marital status: Single Spouse name: Not on file Number of children: Not on file Years of education: Not on file Highest education level: Not on file Occupational History Occupation: disabled Tobacco Use Smoking status: Former Current packs/day: 0.50 Average packs/day: 0.5 packs/day for 30.0 years (15.0 ttl pk-yrs) Types: Cigarettes Smokeless tobacco: Never Tobacco comments: Smoke 10 cigarettes per day. Started smoking at age 20. Up to 3 ppd. Substance and Sexual Activity Alcohol use: Not Currently Drug use: Yes Types: Marijuana Comment: 1/4 joint per day. Started 08/01. Sexual activity: Not on file Other Topics Concern Not on file Social History Narrative Living in [place] in a RV. On disability Past TDCJ - finished time Not working. Denies drug use, rarely ETOH Has 13 y.o parrot and rescue dog Social Determinants of Health Financial Resource Strain: Not on file Food Insecurity: Not on file Transportation Needs: Not on file Physical Activity: Not on file Stress: Not on file Social Connections: Not on file Intimate Partner Violence: Not on file Housing Stability: Not on file Family History Problem Relation Age of Onset Uterine Cancer Mother Skin Cancer Mother Diabetes Mother Asthma Mother Coronary Heart Disease Father 57 from a PA Other - see comments Sister unknown cancer,age unknown COPD (chronic obstructive pulmonary disease) Sister Hypertension Maternal Grandfather REVIEW OF SYSTEMS: As per HPI PHYSICAL EXAM: Constitutional: Vitals: 03/28/24 1035 BP: (!) 145/89 Pulse: 101 SpO2: 95% General: Well-developed, well-nourished in no apparent distress. Appropriate affect. Head and Face: Normocephalic, atraumatic. Nose: S/P rhinectomy. Wound with healthy granulation tissue. Edges are tender and erythematous. DATA REVIEWED: Collected 03/22/2024 08:26 Status: Final result Visible to patient: No (manual release only) 0 Result Notes Component Final Diagnosis A. NOSE, TOTAL RHINECTOMY: - BASAL CELL CARCINOMA, INFILTRATIVE TYPE - MEASURING 3.0 CM IN BIGGEST DIMENSION - RESECTION MARGINS NEGATIVE FOR MALIGNANCY - CLOSEST MARGIN DEEP: 3 MM FROM DEEP AND 8 MM FROM PERIPHERAL MARGINS - NO LYMPHOVASCULAR OR PERINEURAL INVASION IDENTIFIED IMPRESSION/PLAN: 63 year old male with HIV, immunosupression, and multiple cutaneous malignancies presenting with recurrence BCC of nasal tip. His initial nasal BCC was treated with XRT and sonidegib. Had delay in treatment and now s/p rhinectomy on 03/22/24. Pathology with negative margins. Wound with healthy granulation tissue. Discussed reconstruction and he would like to proceed. His expectation His nasal skin is very unhealthy from previous radiation. Had a long discussion with the patient- recommend partial rhinectomy and reconstruction with PMFF/ear cartilage as the nasal dorsal skin is very thin and unhealthy. Would do this in staged fashion - resection first to ensure negative margins given undefined boarders and hx of radiation and then reconstruction about 1 week after if margins negative. His reconstructive goal is having tissue covering the defect even if flat- "everything else is bonus". Discussed risk/complications including but not limited to infection, bleeding, flap failure, poor functional/cosmetic outcomes. He is at increased risk of poor healing due to hx of radiation. He understands that he will need another surgery to take down the pedicle. He would like to proceed. Continue with abx and will add mupirocin to the wound edges. Marcela Niño MD Head & Neck Surgical Oncology and Reconstructive Surgery Department of Otolaryngology-Head and Neck Surgery [facility] 2024-03-22 06:22:05 ENT Pre-Op H&P Alma Alberto [id number] 03/22/2024 Chief Complaint: here for surgery HPI Alma Alberto is a 63 year old male with a history HIV, immunosupression, and multiple cutaneous malignancies with recurrence BCC of nasal tip who presents today for rhinectomy, septectomy,and septoplasty. H&P reviewed with patient in Pre-Op without interval changes. Allergies reviewed. NPO status confirmed. Recent cough/fever/chest pains were denied. Patient agrees with surgical plan and consent was reviewed. History 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 ANXIETY, promethazine dependant Chronic pansinusitis 02/01/2003 CVA (cerebral vascular accident) 2002 at [facility] HIV (human immunodeficiency virus infection) 08/10/1996 Hyperlipidemia Left hip pain 10/08/2002 past left proximal femur lesion 03/18/03, bone scan neg, bx n/d, 07/12 MRI lesion unchanged Other malignant neoplasm of skin of upper limb, including shoulder 06/18/2007 Personality disorder SCC (squamous cell carcinoma) 03/11/10 (R) eyebrow s/p (R) eyebrow Mohs surgery on 04/03/10 Tremor 08/10/2002 EFZ change to NVP due to this 07/27/02 Past Surgical History: Procedure Laterality Date EXCISION MALIG LESION>1.25CM 03/10/2010 S/P Mohs surgery (R) eyebrow SCC and A to T flap and excision of BCC of chin . TENDON REPAIR Left Left hand tendon surgery, No current facility-administered medications for this encounter. No Known Allergies Family History Problem Relation Age of Onset Uterine Cancer Mother Skin Cancer Mother Diabetes Mother Asthma Mother Coronary Heart Disease Father 57 from a PA Other - see comments Sister unknown cancer,age unknown COPD (chronic obstructive pulmonary disease) Sister Hypertension Maternal Grandfather Social History Socioeconomic History Marital status: Single Spouse name: Not on file Number of children: Not on file Years of education: Not on file Highest education level: Not on file Occupational History Not on file Tobacco Use Smoking status: Every Day Current packs/day: 0.50 Average packs/day: 0.5 packs/day for 30.0 years (15.0 ttl pk-yrs) Types: Cigarettes Smokeless tobacco: Never Tobacco comments: Smoke 10 cigarettes per day. Started smoking at age 20. Up to 3 ppd. Substance and Sexual Activity Alcohol use: Not Currently Drug use: Yes Types: Marijuana Comment: 1/4 joint per day. Started 08/01. Sexual activity: Not on file Other Topics Concern Not on file Social History Narrative Living in [place] in a RV. On disability Past [facility] - finished time Not working. Denies drug use, rarely ETOH Has 13 y.o parrot and rescue dog Social Determinants of Health Financial Resource Strain: Not on file Food Insecurity: Not on file Transportation Needs: Not on file Physical Activity: Not on file Stress: Not on file Social Connections: Not on file Intimate Partner Violence: Not on file Housing Stability: Not on file Physical Exam Vitals: 03/22/24 0551 BP: 122/74 Pulse: 87 Resp: 16 Temp: 36.3 ?C (97.3 ?F) TempSrc: Tympanic SpO2: 98% Weight: 75.8 kg (167 lb 1.7 oz) Height: 1.549 m (5' 1") PHYSICAL EXAMINATION GENERAL: In no acute distress RESPIRATORY: breathing unlabored. CARDIOVASCULAR SYSTEM: + pulse NEURO: Grossly intact Assessment/Plan Alma Alberto is a 63 year old male with a history of HIV, immunosupression, and multiple cutaneous malignancies with recurrence BCC of nasal tip who presents today for rhinectomy, septectomy, and septoplasty. -proceed with surgery -Informed consent discussed with the patient, including: condition, proposed care, treatments and services, alternative forms of treatment, and risks of no treatment. Details discussed around the procedures to be used, and the risks and hazards involved, potential benefits, and side effects of the patient s proposed care, treatment, and services; the likelihood of the patient achieving his or her goals; and any potential problems that might occur during recuperation. Reasonable alternative also discussed with the patient s proposed care, treatment, and services. The discussion encompasses risks, benefits, and side effects related to the alternative and risks related to not receiving the proposed care, treatment, and services. Pradeep Aaron MD Department of Otolaryngology PGY-2 Associated attestation - Marcela Niño MD - 03/22/2024 6:59 AM CDT Patient seen in pre-op. No changes to health. Re-discussed risks/complications including but not limited to infection, bleeding, poor functional/cosmetic outcomes. Patient understands and wants to proceed. Marcela Niño MD Head & Neck Surgical Oncology and Reconstructive Surgery Department of Otolaryngology-Head and Neck Surgery [facility] - Health Procedure Notes Date/Time Note Provider Source 2024-05-03 07:37:49 Associated Order(s): Intubation Intubation Date/Time: 05/03/2024 7:20 AM Urgency: elective Airway not difficult General Information and Staff Patient location during procedure: OR Performed: resident/MASTER OF CEREMONIES Performed by: Niranjan Eubanks MD Authorized by: Samson Avalos MD Indications and Patient Condition Indications for airway management: anesthesia Spontaneous ventilation: present Sedation level: deep Preoxygenated: yes Patient position: sniffing MILS maintained throughout Mask difficulty assessment: 2 - vent by mask + OA or adjuvant +/- NMBA Final Airway Details Final airway type: endotracheal airway Successful airway: ETT and TITA tube Cuffed: yes Successful intubation technique: direct laryngoscopy Facilitating devices/methods: intubating stylet Endotracheal tube insertion site: oral Blade: Yuan Blade size: #3 ETT size (mm): 7.5 Cormack-Lehane Classification: grade IIa - partial view of glottis Placement verified by: chest auscultation and capnometry Measured from: teeth ETT to teeth (cm): 22 Number of attempts at approach: 1 Ventilation between attempts: none Number of other approaches attempted: 0 Additional Comments Smooth, atraumatic, dentition and lips unchanged from pre-op. ANESTHESIOLOGY [facility] - Health Notes Date/Time Note Provider Source Kelvin Pearson [facility]2025-02-07 12:15:00 Images from the original note were not included. Venipuncture collection performed by clean technique on the left anticubitus. Total of 1 attempts were made. Slight pressure and a bandage/dressing were applied to the site(s). The patient experienced no complications. The following specimens were processed according to instructions and sent to [facility] laboratories LT BLUE Lt Green SST 1 RED LAV 1 PPT 1 DK GREEN (L) DK GREEN (S)/// Fibrosure set BLUE,SST & LAV SHAH DK BLUE (K2) DK BLUE (S) ACD RST BLOOD CULTURE SET BLOOD CULTURE (AFB AND FUNGUS ) VERIFYNOW Monogram TYPENEX (LAV TOP) ARM BAND ON PATIENT Z plasma preservative tube (call lab for tube)ARUP Vasoactive Intestinal Peptide (call lab for tube)ARUP FEDEX ( NIPT) Thrombotic Risk Reflex Panel URINE URINE CULTURE APTIMA URINE STOOL [facility]2024-09-25 12:44:11 Addendum created 05/04/24 1244 by Niranjan Eubanks MD Intraprocedure Meds edited [place] [id number] 11:20:50 Problem: Pain Goal: Control of pain at or below patient's documented comfort goal Outcome: Adequate for discharge Goal: Reduction in pain sensation Outcome: Adequate for discharge Problem: Infection Risk Goal: Absence of infection Outcome: Adequate for discharge Problem: Skin integrity Impaired (Risk or Actual) Goal: Wound healing Outcome: Adequate for discharge Goal: Prevention of new skin breakdown Outcome: Adequate for discharge [facility]2024-09-24 14:15:41 Problem: Pain Goal: Control of pain at or below patient's documented comfort goal 05/03/2024 1416 by Scott Cortés RN Outcome: Progressing as expected 05/03/2024 1415 by Scott Cortés RN Outcome: Progressing as expected Goal: Reduction in pain sensation 05/03/2024 1416 by Scott Cortés RN Outcome: Progressing as expected 05/03/2024 1415 by Scott Cortés RN Outcome: Progressing as expected Problem: Infection Risk Goal: Absence of infection 05/03/2024 1416 by Scott Cortés RN Outcome: Progressing as expected 05/03/2024 1415 by Scott Cortés RN Outcome: Progressing as expected Problem: Skin integrity Impaired (Risk or Actual) Goal: Wound healing Outcome: Progressing as expected Goal: Prevention of new skin breakdown Outcome: Progressing as expected [facility] Scott Cortés [address]09-24 10:40:05 Patient: Alma Alberto Procedure Summary Date: 05/03/24 Room / Location: [address] [facility] Anesthesia Start: 710 Anesthesia Stop: 948 Procedures: PARAMEDIAN FOREHEAD FLAP TAKEDOWN (Head) ADJACENT TISSUE REARRANGEMENT FULL THICKNESS SKIN GRAFT HARVEST AND PLACEMENT (Face) Diagnosis: Cancer of nasal bone (Cancer of nasal bone [C41.0]) Surgeons: Marcela Niño MD Responsible Provider: Samson Avalos MD Anesthesia Type: General ASA Status: 3 Anesthesia Type: General Last vitals BP 122/73 (05/03/24 1030) Temp 36.5 ?C (97.7 ?F) (05/03/24 0947) Pulse 73 (05/03/24 1030) Resp 13 (05/03/24 1030) SpO2 93 % (05/03/24 1030) No notable events documented. Anesthesia Post Evaluation Patient location during evaluation: PACU Patient participation: complete - patient participated Level of consciousness: awake Pain management: adequate Airway patency: patent Cardiovascular status: acceptable Respiratory status: acceptable Hydration status: acceptable AN-[facility]HESIOLOGY [facility] - [id number] 09:01:09 Images from the original note were not included. Name/ MRN / Age / Gender: Alma Alberto, [id number] 63 year old male BMI: Estimated body mass index is 32.3 kg/m? as calculated from the following: Height as of 04/15/24: 1.524 m (5'). Weight as of 04/15/24: 75 kg (165 lb 6 oz). Allergies: Patient has no known allergies. Last Vitals: BP Readings from Last 1 Encounters: 04/15/24 131/73 Pulse Readings from Last 1 Encounters: 04/15/24 75 SpO2 Readings from Last 1 Encounters: 04/15/24 100% Date of Surgery: 05/03/2024 Surgeon: Marcela Niño MD Procedure: PARAMEDIAN FOREHEAD FLAP TAKEDOWN (Head) ADJACENT TISSUE REARRANGEMENT FULL THICKNESS SKIN GRAFT HARVEST AND PLACEMENT (Face) OR Location: [facility] Anesthesia Preop Eval (physical exam) Copied forward and updated from: 03/30/2024 Anesthesia Preop: Chart Review and [id number] [facility] Communication: Anesthesia History Anesthesia History Negative Previous Anesthetics/Airways Additional Comments: 03/30/2024 ETT 7.5mm, cuffed, DL x 1 (NO stylet utilized)oral, Mac #3, grade I- full view of glottis. 03/22/2024 ETT 7.5mm, DL x 1, oral, Mac #3, grade I- full view of glottis Cardiovascular Comments: DSE 10/05/13 Interpretation Summary The study was technically adequate. Normal LV systolic function at baseline. Normal resting wall motion and no stress-induced wall motion abnormality. Normal hemodynanmic response. Adequate inotropic response. Adequate chronotropic response. This was a negative stress echocardiogram for inducible ischemic wall motion abnormality. (+) Dyslipidemia (+) Hx of cardiac stress test Pulmonary (+) Tobacco use (former) Tobacco Quit Date: November 2023 (+) Cigarette use (Smoke 10 cigarettes per day. Started smoking at age 20. Up to 3 ppd) Neuro/Musculoskeletal Comments: Hx of tremor, on propranolol and primidone (+) CVACVA Date: 2002, L sided leg weakness (+) Psychiatric history (OCD) and bipolar (+) Anxiety (+) Obesity (BMI 32.29) GI/Hepatic Negative GI/Hepatic ROS Hematology Negative Hematology ROS Prior Blood Transfusion: No Type and Screen Ordered: No Patient Accepts Blood Transfusion: Yes Renal Negative Renal ROS Skin Comments: CC:Recurrent BCC tip of nose His initial nasal BCC was treated with XRT and sonidegib. Rhinectomy on 03/22/24. Now s/p complex reconstruction with right paramedian, right melolabial, right auricular cartilage harvest, and septal hinge flap on 03/30/24. s/p multiple Mohs micrographic surgery's (MMS), radiation in 2021 (55 shah in 22 fractions at [facility]) and in 2022 at OSH, and 6 month course of sonidegib completed in 01/2023 for invasive basal cell carcinoma of the nose. (+) Rash Endo/Other Endocrine/other ROS Negative per Chart Review Other Comments: Infectious disease 09/18/23 OV assessment and plan: HIV (+) - without recent VL tested but he has been well controlled historically on the same medication - CD4 remains in the 200s - continue Odefsey 1 po once daily - check HIV-1 quant today (+) Tobacco use (former) Tobacco Quit Date: November 2023 (+) Cigarette use (Smoke 10 cigarettes per day. Started smoking at age 20. Up to 3 ppd) (+) Drug use (Marijuana,1/4 joint per day. 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 Hold on DOS. Phentermine: Alert [facility] anesthesiologist SGLT2 Inhibitors: "gliflozins" to be held for 3 days prior to elective surgeries GLP1 Agonosit: stop 7 days prior to surgery MAC Cases: Continue taking FEDERICO inhibitors and ARBs ASA Classification ASA: 3 Labs: Chemistry 03/18/2024 CBC 03/30/2024 139 99 10 99 7.77 10.2 (L) 232 4.4 27 0.95 30.6 (L) eGFR: 91.1 Date: 03/18/2024 ANC: 6.91 Date: 03/30/2024 LFTs 03/18/2024 Coags AST: 29 AP: 194 (H) Prot: 7.3 Ca: 9.5 PT: - Date: - ALT: 22 T Dillon: 0.5 Alb: 4.5 PTT: - Date: - PO4: - Date: - INR: - Date: - Cardiac Endocrine & other pBNP: - Date: - A1C: - Date: - Trop I: - Date: - POCT A1C: - Date: - CK: - Date: - TSH: - Date: - CKMB: - Date: - FT4: - Date: - LDL: - Date: - Lact: - Date: - Procal: - Date: - Respiratory 7.45|37|102 (H)|25|97.3 D-dimer: - ABG Date: 03/30/2024 Date: - Miscellaneous Type and Screen: - Antibody: - Date: - POCT : - Date: - Current Medications: No outpatient medications have been marked as taking for the 05/03/24 encounter (Hospital Encounter). Previous Surgeries: Past Surgical History: Procedure Laterality Date ADJACENT TISSUE REARRANGEMENT Right 03/30/2024 Surgeon: Marcela Niño MD; Location: [facility] CARTILAGE GRAFT Right 03/30/2024 Surgeon: Marcela Niño MD; [facility] [place] EXCISION CARTILAGE GRAFT DONOR SITE NOSE (SHX) Right 03/30/2024 Surgeon: Marcela Niño MD; [facility] [place] EXCISION MALIG LESION>1.25CM 03/10/2010 S/P Mohs surgery (R) eyebrow SCC and A to T flap and excision of BCC of chin . FLAP COVERAGE - FACIAL 03/30/2024 Surgeon: Marcela Niño MD; Location: [facility] [place] PARAMEDIAN FOREHEAD FLAP PLACEMENT N/A 03/30/2024 Surgeon: Marcela Niño MD; Location: [facility] [place] TENDON REPAIR Left Left hand tendon surgery, TOTAL RHINECTOMY N/A 03/22/2024 Surgeon: Marcela Niño MD; Location: [facility] [place] Anesthesia Physical Exam General no apparent distress and alert and oriented x 3 Neuro/Psych Dental poor dentition Abdominal Airway Mallampati score:III TM distance:> 5 cm Neck ROM: full Mouth opening:normal Extremity Pulmonary bilateral clear to auscultation Other Cardiovascular Anesthesia Plan ASA Status: 3 Anesthetic plan on DOS: General Plan to include: IV induction Anesthesia plan discussed with: patient or printing sales representative Post-Operative Analgesia: routine analgesia & antiemetics Recovery Plan: PACU Additional comments: AN-ANESTHESIOLOGY ANESTHESIOLOGISTSelect [facility] Specialty [facility]-[id number] 16:12:47 Medication returned to patient before discharge. Giovanna Richards RNSelect Medical Specialty Hospital - [facility]-[id number] 06:12:25 Problem: Falls, Risk of Goal: Absence of falls Outcome: Progressing as expected Problem: Pain Goal: Control of pain at or below patient's documented comfort goal Outcome: Progressing as expected Goal: Reduction in pain sensation Outcome: Progressing as expected Problem: Infection Risk Goal: Absence of infection Outcome: Progressing as expected Problem: Discharge Planning Goal: Adequate for discharge Outcome: Progressing as expected Goal: Effective communication Outcome: Progressing as expected Remy Manley [facility] [id number] 18:32:09 Problem: Pain Goal: Control of pain at or below patient's documented comfort goal Outcome: Progressing as expected Problem: Pain Goal: Control of pain at or below patient's documented comfort goal Outcome: Progressing as expected Problem: Discharge Planning Goal: Adequate for discharge 04/01/2024 1832 by Sophia Garcia RN Outcome: Progressing as expected 04/01/2024 183 by Sophia Garcia RN Outcome: Progressing as expected Goal: Effective communication Outcome: Progressing as expected Problem: Infection Risk Goal: Absence of infection 04/01/2024 183 by Sophia Garcia RN Outcome: Progressing as expected 04/01/2024 183 by Sophia Garcia RN Outcome: Progressing as expected Problem: Falls, Risk of Goal: Absence of falls 04/01/2024 183 by Sophia Garcia RN Outcome: Progressing as expected 04/01/2024 183 by Sophia Garcia RN Outcome: Progressing as expected Sophia Garcia [facility] [id number] 20:30:08 Problem: Pain Goal: Control of pain at or below patient's documented comfort goal Outcome: Progressing as expected Goal: Reduction in pain sensation Outcome: Progressing as expected Problem: Infection Risk Goal: Absence of infection Outcome: Progressing as expected Problem: Discharge Planning Goal: Adequate for discharge Outcome: Progressing as expected Goal: Effective communication Outcome: Progressing as expected Problem: Falls, Risk of Goal: Absence of falls Outcome: Progressing as expected [facility] - [id number] 10:05:00 Images from the original note were not included. DEMOGRAPHICS MR#: [id number] Name: Alma Alberto Insurance: Payor: [employer] MA[employer]ED MEDICARE / Plan: [employer] DUAL CORDINATION [facility] HMO SNP / Product Type: Medicare Adv HMO / Casebook status: Not applicable.. Inmate: No PRESENTATION Diagnosis: Basal cell carcinoma of the right nasal ala Recurrence: Yes Second Primary: No Date Presented: 10/12/23 for Initial visit IMAGING Radiology: PET TUMOR IMAGING SKULL TO THIGH on 10/16/2023 11:04 AM Clinical: Previously resected right nasal alar basal cell carcinoma Comparison: CT 08/20/2023 Technique: Routine imaging was obtained from vertex to mid thighs after administration of 8.9 mCi of F18 labeled FDG given via left forearm injection, with a fasting blood sugar of 101 mg/dL, and after an appropriate period of equilibration of quiet resting. Findings: With respect to the head neck, photopenia is seen at the site of known left posterior cerebellar encephalomalacia. There are multiple areas of abnormal tracer activity related to dental caries. I have annotated on a slice for which there is no reference number, abnormal tracer activity inferiorly and anteriorly in the left maxillary sinus. There was nonspecific nonenhancing opacification in this location on the CT scan, but it is possible for small nondestructive sinus malignancies to appear this way, and follow-up imaging is recommended. I cannot attribute this FDG activity to dentition. The enhancing structures seen on CT lateral to left masseter are not FDG avid, and are presumed to represent accessory salivary tissue. With respect to the external nose, in the location of the right nasal ala resection site, there is no abnormal metabolic activity. A small focus of activity in the nasal tip is annotated, also on a slice without reference number, and this bears direct examination. There is no clearly enhancing mass on the corresponding CT image. More inferiorly, there were no worrisome mucosal or edil lesions. Beyond the head neck, there was no worrisome pulmonary nodularity, and no metabolically active pulmonary, hilar or mediastinal lesions. Below the diaphragm, there was no worrisome visceral or edil disease. Incidental note are made of small metabolically active right axillary and inguinal nodes that are presumably reactive. IMPRESSION 1. Findings in the left maxillary sinus as outlined above. 2. Small focus of tracer activity in the nasal tip that bears direct examination. 3. No other convincing evidence for tumor. EXAM: CT SOFT TISSUE NECK W CONTRAST 08/20/23 HISTORY: 63 years-old Male; Provided indication: Head/neck cancer, staging extensive recurrent BCC of nose . TECHNIQUE: Contrast enhanced CT study of the neck was performed with images obtained from the skull base to the thoracic inlet. Coronal and sagittal reformats were obtained. COMPARISON: None. FINDINGS: The visualized parts of brain and orbits reveal no acute findings. Focal encephalomalacia of the medial left cerebellum is noted, could be due to remote ischemic infarction [series 4 image 56]. There were no mucosal or edil lesions. Post Mohs micrographic surgery [MMS] of the right nasal BCC with large defect in the right nasal alae, in and around image 29 series 2. There is nothing specifically concerning for local recurrence. Oval-shaped enhancing structures superficial to left masseter and anterior to the left parotid [series 2 images 27-32) likely represents accessory parotid tissue despite the enhancement. No other suspicious or enlarged cervical lymph nodes. There were no mucosal or edil lesions. IMPRESSION Postsurgical defect right nasal ala. PATHOLOGY Pathology: DERMATOPATHOLOGY 07/27/23 STAGING Recurrent BCC KOKO Alberto is a 63 year old male with pmhx HIV+ who presented to ENT clinic on 10/09/23 as a referral from dermatology for evaluation of recurrent right nasal basal cell carcinoma. Patient is s/p ED&C, radiation in 2001 (55 shah in 22 fractions at [facility]) and in 2022 at [facility]SH, and 6 month course of sonidegib completed in 01/2023. He noted a new lesion on the tip of his right nose which underwent biopsy with dermatology on 07/27/23. CT imaging on 08/20/23 showed right nasal post-operative changes but no overt evidence of disease or suspicious LAD. PET completed on 10/16/23 which showed small tracer activity in nasal tip. Patient underwent total rhinectomy on 03/22/24 and intra-op findings were remarkable for extensive tumor of the nasal tip with erosion of the right nasal ala and extension to the right nasofacial groove, upper nasal dosum, left ala, collumella, and septum. Surgical pathology showed basal cell carcinoma with margins negative and no perineural or lymphovascular invasion. Per TB reccs, it was recommended for close surveillance. RECOMMENDATIONS - Reconstruction planned on 03/30/24 - High risk BCC and margins negative with no perineural or lymphovascular invasion, recommend close surveillance TRIALS Eligibility: N/A Pradeep Aaron MD Department of Otolaryngology PGY-2 [facility]2024-08-15 13:17:50 Contacted patient regarding antibiotic prescription. Per Dr. Niño, e-script for Augmentin BID x 10 days has been sent to pharmacy in [place]. Patient verbalized understanding. Lila Krause RN [place] [id number] 08:24:57 Alma Alberto is a 63 year old male Pt calling in stating that he has amoxicillin on his discharge medication list. Did not receive. Please verify, contact and advise. [facility] Claudia CastleNovant Health Rowan Medical [id number] 17:44:48 Problem: Procedure Routine Goal: Absence of post-procedure complications 03/23/20241743 by Ana Paula Black RN Outcome: Adequate for discharge 03/23/2024 1019 by Ana Paula Black RN Outcome: Progressing as expected Problem: Discharge Planning Goal: Adequate for discharge 03/23/20241743 by Ana Paula Black RN Outcome: Adequate for discharge 03/23/2024 1019 by Ana Paula Black RN Outcome: Progressing as expected Goal: Effective communication 03/23/20241743 by Ana Paula Black RN Outcome: Adequate for discharge 03/23/2024 1019 by Ana Paula Black RN Outcome: Progressing as expected Problem: Falls, Risk of Goal: Absence of falls 03/23/20241743 by Ana Paula Black RN Outcome: Adequate for discharge 03/23/2024 1019 by Ana Paula Black RN Outcome: Progressing as expected Problem: Pain Goal: Control of pain at or below patient's documented comfort goal 03/23/2024 174 by Ana Paula Black RN Outcome: Adequate for discharge 03/23/2024 1019 by Ana Paula Black RN Outcome: Progressing as expected Goal: Reduction in pain sensation 03/23/20241743 by Ana Paula Black RN Outcome: Adequate for discharge 03/23/2024 1019 by Ana Paula Black RN Outcome: Progressing as expected Problem: Respiratory Function - Impaired Goal: Able to cough effectively 03/23/20241743 by Ana Paula Black RN Outcome: Adequate for discharge 03/23/2024 1019 by Ana Paula Black RN Outcome: Progressing as expected Goal: Adequate oxygenation 03/23/20241743 by Ana Paula Black RN Outcome: Adequate for discharge 03/23/2024 1019 by Ana Paula Black RN Outcome: Progressing as expected Goal: Adequate work of breathing 03/23/20241743 by Ana Paula Black RN Outcome: Adequate for discharge 03/23/2024 1019 by Ana Paula Black RN Outcome: Progressing as expected Problem: Bleeding, Risk of Goal: Absence of impaired coagulation signs and symptoms 03/23/20241743 by Ana Paula Black RN Outcome: Adequate for discharge 03/23/2024 1019 by Ana Paula Black RN Outcome: Progressing as expected Goal: Absence of active bleeding 03/23/20241743 by Ana Paula Black RN Outcome: Adequate for discharge 03/23/2024 1019 by Ana Paula Black RN Outcome: Progressing as expected Problem: Skin integrity Impaired (Risk or Actual) Goal: Prevention of new skin breakdown 03/23/20241743 by Ana Paula Black RN Outcome: Adequate for discharge 03/23/2024 1019 by Ana Paula Black RN Outcome: Progressing as expected [facility] Gonxfi9346-73-27 17:44:39 Problem: Procedure Routine Goal: Absence of post-procedure complications 03/23/20241743 by Ana Paula Black RN Outcome: Adequate for discharge 03/23/2024 101 by Ana Paula Black RN Outcome: Progressing as expected Problem: Discharge Planning Goal: Adequate for discharge 03/23/20241743 by Ana Paula Black RN Outcome: Adequate for discharge 03/23/2024 101 by Ana Paula Black RN Outcome: Progressing as expected Goal: Effective communication 03/23/20241743 by Ana Paula Black RN Outcome: Adequate for discharge 03/23/20241018 by Ana Paula Black RN Outcome: Progressing as expected Problem: Falls, Risk of Goal: Absence of falls 03/23/20241743 by Ana Paula Black RN Outcome: Adequate for discharge 03/23/20241018 by Ana Paula Black RN Outcome: Progressing as expected Problem: Pain Goal: Control of pain at or below patient's documented comfort goal 03/23/20241743 by Ana Paula Black RN Outcome: Adequate for discharge 03/23/2024 101 by Ana Paula Black RN Outcome: Progressing as expected Goal: Reduction in pain sensation 03/23/20241743 by Ana Paula Black RN Outcome: Adequate for discharge 03/23/2024 101 by Ana Paula Black RN Outcome: Progressing as expected Problem: Respiratory Function - Impaired Goal: Able to cough effectively 03/23/20241743 by Ana Paula Black RN Outcome: Adequate for discharge 03/23/2024 101 by Ana Paula Black RN Outcome: Progressing as expected Goal: Adequate oxygenation 03/23/20241743 by Ana Paula Black RN Outcome: Adequate for discharge 03/23/20241018 by Ana Paula Black RN Outcome: Progressing as expected Goal: Adequate work of breathing 03/23/20241743 by Ana Paula Black RN Outcome: Adequate for discharge 03/23/2024 101 by Ana Paula Black RN Outcome: Progressing as expected Problem: Bleeding, Risk of Goal: Absence of impaired coagulation signs and symptoms 03/23/2024 1744 by Ana Paula Black RN Outcome: Adequate for discharge 03/23/2024 1019 by Ana Paula Black RN Outcome: Progressing as expected Goal: Absence of active bleeding 03/23/20241743 by Ana Paula Black RN Outcome: Adequate for discharge 03/23/2024 1019 by Ana Paula Black RN Outcome: Progressing as expected Problem: Skin integrity Impaired (Risk or Actual) Goal: Prevention of new skin breakdown 03/23/2024 174 by Ana Paula Black RN Outcome: Adequate for discharge 03/23/2024 1019 by Ana Paula Black RN Outcome: Progressing as expected [facility]2024-08-14 10:20:07 Problem: Procedure Routine Goal: Absence of post-procedure complications Outcome: Progressing as expected Problem: Discharge Planning Goal: Adequate for discharge Outcome: Progressing as expected Goal: Effective communication Outcome: Progressing as expected Problem: Falls, Risk of Goal: Absence of falls Outcome: Progressing as expected Problem: Pain Goal: Control of pain at or below patient's documented comfort goal Outcome: Progressing as expected Goal: Reduction in pain sensation Outcome: Progressing as expected Problem: Respiratory Function - Impaired Goal: Able to cough effectively Outcome: Progressing as expected Goal: Adequate oxygenation Outcome: Progressing as expected Goal: Adequate work of breathing Outcome: Progressing as expected Problem: Bleeding, Risk of Goal: Absence of impaired coagulation signs and symptoms Outcome: Progressing as expected Goal: Absence of active bleeding Outcome: Progressing as expected Problem: Skin integrity Impaired (Risk or Actual) Goal: Prevention of new skin breakdown Outcome: Progressing as expected [facility]2024-08-13 23:55:57 Problem: Procedure Routine Goal: Absence of post-procedure complications Outcome: Progressing as expected Problem: Discharge Planning Goal: Adequate for discharge Outcome: Progressing as expected Goal: Effective communication Outcome: Progressing as expected Problem: Falls, Risk of Goal: Absence of falls Outcome: Progressing as expected Problem: Pain Goal: Control of pain at or below patient's documented comfort goal Outcome: Progressing as expected Goal: Reduction in pain sensation Outcome: Progressing as expected Problem: Respiratory Function - Impaired Goal: Able to cough effectively Outcome: Progressing as expected Goal: Adequate oxygenation Outcome: Progressing as expected Goal: Adequate work of breathing Outcome: Progressing as expected Problem: Bleeding, Risk of Goal: Absence of impaired coagulation signs and symptoms Outcome: Progressing as expected Goal: Absence of active bleeding Outcome: Progressing as expected Problem: Skin integrity Impaired (Risk or Actual) Goal: Prevention of new skin breakdown Outcome: Progressing as expected Shira Garcia [facility] HospitalJiwlwu7345-41-79 17:57:50 Problem: Procedure Routine Goal: Absence of post-procedure complications Outcome: Progressing as expected Problem: Discharge Planning Goal: Adequate for discharge Outcome: Progressing as expected Goal: Effective communication Outcome: Progressing as expected Problem: Falls, Risk of Goal: Absence of falls Outcome: Progressing as expected Problem: Pain Goal: Control of pain at or below patient's documented comfort goal Outcome: Progressing as expected Goal: Reduction in pain sensation Outcome: Progressing as expected Problem: Respiratory Function - Impaired Goal: Able to cough effectively Outcome: Progressing as expected Goal: Adequate oxygenation Outcome: Progressing as expected Goal: Adequate work of breathing Outcome: Progressing as expected Problem: Bleeding, Risk of Goal: Absence of impaired coagulation signs and symptoms Outcome: Progressing as expected Goal: Absence of active bleeding Outcome: Progressing as expected Problem: Skin integrity Impaired (Risk or Actual) Goal: Prevention of new skin breakdown Outcome: Progressing as expected [facility]Netmzj0091-79-45 07:56:00 Otolaryngology - Head & Neck Surgery Operative Report Patient: Alma Alberto : 1960 Date of Surgery: 03/22/24 PRIMARY SURGEON: Marcela Niño MD SIGNS AND DISPLAYS SALESPERSON SURGEONS: Wan Aaron PREOPERATIVE DIAGNOSIS: Basal cell carcinoma of the nasal tip POSTOPERATIVE DIAGNOSIS: Same ANESTHESIA: General INDICATION FOR PROCEDURE: Alma Alberto is a 63 year old male with a history of of HIV and immunosuppression with a large recurrent basal cell carcinoma of the nasal tip who presents for total rhinectomy. PROCEDURES: Total rhinectomy (CPT 39729) Anterior septectomy (CPT 69004) FINDINGS: Extensive tumor of the nasal tip with erosion of the right nasal ala and extension to the right nasofacial groove, upper nasal dosum, left ala, collumella, and septum. ESTIMATED BLOOD LOSS: < 20 mL SPECIMENS: ID Type Source Tests Collected by Time Destination 1 : TOTAL RHINECTOMY- SHORT DOUBLE RIGHT FACIAL MARGIN, SHORT SINGLE NASAL LABIAL MARGIN, DOUBLE LONG NASAL DORSUM MARGIN, SINGLE LONG RIGHT SEPTUM MARGIN, TRIPLE SHORT LEFT SEPTUM MARGIN Tissue NOSE SURGICAL PATHOLOGY EXAM Marcela Niño MD 03/22/2024 0826 COMPLICATIONS: None DESCRIPTION OF PROCEDURE: Discussion was held with the patient regarding the risks, benefits and alternatives of the procedure. Risks include bleeding, scar formation, poor cosmesis, and need for additional procedures. The patient expressed understanding and agreement with this and informed consent was obtained. The patient was brought to the operating room and identified by name and medical number. He was placed on the operating table in the supine position and safety straps were applied. General endotracheal anesthesia was performed by the Anesthesia team. The patient was prepped and draped in the standard fashion for nasal surgery. Pre-procedure time-out was performed. An extensive tumor of the nasal tip with erosion of the right nasal ala and extension to the right nasofacial groove, upper nasal dosum, left ala, collumella, and septum was a encountered. A skin marker was used rainer an incision with at least 0.5 cm margins in all dimensions. 1% lidocaine with 1:100,000 epinephrine was injected along the incision line and into the nasal septum. A 15-blade was used to make incision through skin along the cutaneous portion of the incision. A needle tip Bovie on cut setting was used to extend the incision intranasally along the marked margins. Iris scissors, needle tip Bovie, and the Aisha elevator were used to complete the excision, resulting in a near total full thickness defect of the nose and partial defect of the septal cartilage. The total rhinectomy specimen was marked with suture and sent off the field for permanent analysis. Right pyriform aperture bone was exposed and it was shaved down. Hemostasis was achieved with bipolar cautery. The wound was irrigated with sterile saline and dressed with Xeroform gauze. At this point we felt satisfied with the extent of the procedure. The patient was turned over to the anesthesia team to be awakened, extubated and transferred to the PACU in stable condition. Standard operating room protocol and universal precautions were utilized throughout the procedure. Wan Mortensen MD, MPH | PGY-5 Otolaryngology-Head and Neck Surgery I was present and participated in the entire procedure. Marcela Niño MD Head & Neck Surgical Oncology and Reconstructive Surgery Department of Otolaryngology-Head and Neck Surgery [facility]hillMzepgn7542-47-87 07:56:00 BRIEF OPERATIVE NOTE Date of Surgery: 03/22/2024 Surgeons and Role: * Marcela Niño MD - Primary * Wan Mortensen MD - Resident - Assisting Pre-Op Diagnosis: Cancer of skin of external nose [C44.301] Post-Op Diagnosis Codes: * Cancer of skin of external nose [C44.301] Procedures: Procedure(s) (LRB): TOTAL RHINECTOMY (N/A) CPT: 25066, Any Complications Encounters: None Estimated Blood Loss: < 10cc Specimens Removed: ID Type Source Tests Collected by Time Destination 1 : TOTAL RHINECTOMY- SHORT DOUBLE RIGHT FACIAL MARGIN, SHORT SINGLE NASAL LABIAL MARGIN, DOUBLE LONG NASAL DORSUM MARGIN, SINGLE LONG RIGHT SEPTUM MARGIN, TRIPLE SHORT LEFT SEPTUM MARGIN Tissue NOSE SURGICAL PATHOLOGY EXAM Marcela Niño MD 03/22/2024 0826 * No implants in log * Patient's Condition: Good, Stable Findings: Extensive basal cell carcinoma resected Any other important information: None Please see dictated operative report for additional detail. Wan Mortensen MD, MPH | PGY-5 Otolaryngology-Head and Neck Surgery Associated attestation - Marcela Niño MD - 03/22/2024 9:26 AM CDT Marcela Niño MD Head & Neck Surgical Oncology and Reconstructive Surgery Department of Otolaryngology-Head and Neck Surgery [facility] ROLAND-OTOLARYNGOLOGYSelect [facility]-FairhillYasuck1564-99-10 09:51:28 Spoke to Patient, said ok to keep overnight, Reanna Tilley, RN Reanna Tilley RNSelect Medical Specialty Hospital - [facility]-FairhillAlegrv7564-74-01 09:35:01 Alma Alberto is a 63 year old male Patient is calling stating it was discussed that he will stay one night in the hospital. He is calling to make sure that is the case; he has no ride home after procedure. [phone] (home) Temitope TilleySelect Medical Specialty Hospital [facility]-FairhillLjnvux4000-58-45 11:45:00 Images from the original note were not included. Venipuncture collection performed by clean technique on the left anticubitus. Total of 1 attempts were made. Slight pressure and a bandage/dressing were applied to the site(s). The patient experienced no complications. The following specimens were processed according to instructions and sent to [facility] laboratories LT BLUE Lt Green SST 1 RED LAV 2 PPT 1 DK GREEN (L) DK GREEN (S)/// Fibrosure set BLUE,SST & LAV SHAH DK BLUE (K2) DK BLUE (S) ACD RST BLOOD CULTURE SET BLOOD CULTURE (AFB AND FUNGUS ) VERIFYNOW Monogram TYPENEX (LAV TOP) ARM BAND ON PATIENT Z plasma preservative tube (call lab for tube)ARUP Vasoactive Intestinal Peptide (call lab for tube)ARUP FEDEX ( NIPT) Thrombotic Risk Reflex Panel URINE URINE CULTURE APTIMA URINE STOOL [facility]FairhillVjbrky4555-39-04 13:12:42 Images from the original note were not included. Patient walked in with Surgery Clearance form from [facility]. Scanned in patient chart. Terra FreedSelect Medical Specialty Hospital [facility]-FairhillLuqrdl9213-57-11 11:23:13 Contacted patient, nothing has been received at this time. He needs to try and go pick this up as we have been unable to retrieve this info from the clinic for over 3 months now. Patient will attempt on Thursday. Reanna Tilley RN Reanna Tilley [facility] HospitalRxsloe0725-69-92 15:44:29 Contacted [facility]- I let them know that I did not in fact receive a fax that was documented as sent yesterday by their office. I confirmed our fax number as well. Reanna Tilley RN [facility]FairhillKgczuk1304-11-47 15:28:48 Alma Alberto is a 63 year old male Pt is calling to confirm that a Medical Clearance form was recvd from Dr. Reanna Ch. Please expedite f/u Work Phone Not on file. Ct [facility]iaAk[facility] HospitalMylcjh2568-56-01 15:31:20 Reached out to N- a note should be resent over tomorrow. Reanna Tilley RN Reanna Tilley [facility] HospitalHvgbui9718-47-15 15:04:49 Alma Alberto is a 63 year old male Patient returning nurse call Please call him back at [phone] Berenice JoeNovant Health Rowan Medical CenterDgsedp5942-48-06 14:42:06 Attempted patient at this time, I have been unable to get information from patients PCP. Reanna Tilley, RN [facility]-FairhillRvxrrr5918-19-80 12:28:40 Name/ MRN / Age / Gender: Alma Alberto, [id number] 63 year old male BMI: Estimated body mass index is 30.23 kg/m? as calculated from the following: Height as of 12/04/23: 1.549 m (5' 1"). Weight as of 12/24/23: 72.6 kg (160 lb). Allergies: Patient has no known allergies. Last Vitals: BP Readings from Last 1 Encounters: 12/04/23 97/59 Pulse Readings from Last 1 Encounters: 12/04/23 73 SpO2 Readings from Last 1 Encounters: 12/04/23 96% Date of Surgery: Surgeon: * Surgery not found * Procedure: [facility] OR Location: * No surgery found * Anesthesia Preop Screen (no physical exam) Anesthesia Preop: Phone Preop and Chart Review [facility] Communication: Called and reviewed history with patient. He reports good functional status with > 4 mets, only risk factors of tobacco use and HIV, no indication for further cardiac testing prior to surgery. Discussed with Dr. Workman. Chay Greco MD 02/22/24 3:53 PM Anesthesia History Previous Anesthetics/Airways Additional Comments: No prior documented anesthetics Cardiovascular Comments: DSE 10/05/13 Interpretation Summary The study was technically adequate. Normal LV systolic function at baseline. Normal resting wall motion and no stress-induced wall motion abnormality. Normal hemodynanmic response. Adequate inotropic response. Adequate chronotropic response. This was a negative stress echocardiogram for inducible ischemic wall motion abnormality. METS: 5-6 METS Comments: Patient reports walking daily up to one mile, denies chest pain but will at time get SOB after walking about 4-5 blocks. (-) Chest pain with 1-2 flights of stairs (-) Hypertension (+) Dyslipidemia (+) Hx of cardiac stress test (-) Hx of cardiac cath (-) Angina/Chest Pain Within Last Year (-) Patient does not report prior PA (-) CAD (-) Valvular problems/murmurs (-) Dysrhythmias (-) No cardiovascular devices present Pulmonary (-) Sleep apnea (-) COPD (-) Asthma (-) Tobacco use Tobacco Quit Date: November 2023 (+) Cigarette use (Smoke 10 cigarettes per day. Started smoking at age 20. Up to 3 ppd) (-) Recent bronchitis or URI Neuro/Musculoskeletal Comments: Hx of tremor, on propranolol and primidone (+) CVACVA Date: 2002, L sided leg weakness (-) Seizures (+) Psychiatric history and bipolar GI/Hepatic Negative GI/Hepatic ROS (-) GERD (-) Liver disease Hematology (-) PE/DVT (-) Not on anti-coagulant therapy Prior Blood Transfusion: No Patient Accepts Blood Transfusion: Yes Renal Negative Renal ROS (-) Patient reports no kidney problems (-) Renal disease Skin Comments: CC:Recurrent BCC tip of nose s/p multiple Mohs micrographic surgery's (MMS), radiation in 2021 (55 shah in 22 fractions at [facility]) and in 2022 at OSH, and 6 month course of sonidegib completed in 01/2023 for invasive basal cell carcinoma of the nose. PET scan was done on 10/16/23 which showed a small focus of tracer activity in the nasal tip and non-specific uptake in the left maxillary sinus. He was represented at ENT Multidisciplinary Tumor Conference on 11/09/23 with recommendation for resection with reconstruction. After originally declining surgery, he now agrees to surgery first before consideration of another round of hedgehog inhibitor therapy to preserve his nasal structure. Endo/Other (-) Diabetes Mellitus (-) Hyperthyroidism (-) Hypothyroidism Other Comments: Infectious disease 09/18/23 OV assessment and plan: HIV (+) - without recent VL tested but he has been well controlled historically on the same medication - CD4 remains in the 200s - continue Odefsey 1 po once daily - check HIV-1 quant today (-) Tobacco use Tobacco Quit Date: November 2023 (+) Cigarette use (Smoke 10 cigarettes per day. Started smoking at age 20. Up to 3 ppd) (+) Drug use (Marijuana,1/4 joint per day. 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 Hold on DOS. Phentermine: Alert [facility] anesthesiologist SGLT2 Inhibitors: "gliflozins" to be held for 3 days prior to elective surgeries GLP1 Agonosit: stop 7 days prior to surgery MAC Cases: Continue taking FEDERICO inhibitors and ARBs ASA Classification ASA: 3 Labs: Chemistry 03/18/2023 CBC 03/18/2023 140 102 10 96 4.90 11.8 (L) 296 4.8 29 0.76 35.7 (L) eGFR: 104.6 Date: 03/18/2023 ANC: 3.43 Date: 03/18/2023 LFTs 03/18/2023 Coags AST: 30 AP: 143 (H) Prot: 6.9 Ca: 9.0 PT: - Date: - ALT: 21 T Dillon: 0.2 Alb: 4.0 PTT: - Date: - PO4: 3.2 Date: 03/18/2023 INR: - Date: - Cardiac Endocrine & other pBNP: - Date: - A1C: - Date: - Trop I: - Date: - POCT A1C: - Date: - CK: - Date: - TSH: - Date: - CKMB: - Date: - FT4: - Date: - LDL: 149 Date: 03/18/2023 Lact: - Date: - Procal: - Date: - Respiratory -|-|-|-|- D-dimer: - ABG Date: - Date: - Miscellaneous Type and Screen: - Antibody: - Date: - POCT : - Date: - Current Medications: No outpatient medications have been marked as taking for the 02/22/24 encounter (Appointment) with Dorothy Vazquez [facility] Phone. Previous Surgeries: Past Surgical History: Procedure Laterality Date EXCISION MALIG LESION>1.25CM 03/10/2010 S/P Mohs surgery (R) eyebrow SCC and A to T flap and excision of BCC of chin . TENDON REPAIR Left Left hand tendon surgery, Physical Exam Anesthesia Plan ASA Status: 3 AN-ANESTHESIOLOGYUTMB - Wyzjct3944-55-91 15:03:06 Spoke to patient, still pending coordination with Dr. Niño, pending clearance request from PCP. Reanna Tilley RN Reanna Tilley [facility] HospitalYequag4116-09-67 09:23:29 Patient came into clinic today and requests to be scheduled for surgery. Per Day Surgery referral, patient is cleared to be scheduled per insurance correspondence, Please advise Randi Altamirano davidSelect Medical Specialty Hospital [facility]-FairhillPljwaw5290-91-47 14:53:09 Spoke with patient. He is asking if the completed clearance has been received, so he can schedule surgery. In reviewing chart, only clearance I see looks to be incomplete from 01/14/24. Advised patient that Dr. Niño and Reanna are out until next week, and I will route to Reanna for review when she returns. Verbalized understanding. Lila Krause RN Lila Krause [facility] HospitalDzuskr7113-00-97 14:20:26 Copied from [facility] #[id number]. Topic: Clinical - Paperwork/Forms >> Jan 29, 2024 2:19 PM Patient Policy Manager wrote: Patient is calling to check status on clearance forms for surgery, please advise. Doris MenaSelect Medical Specialty Hospital [facility]-FairhillUmpnss0887-71-52 13:35:53 Spoke to clinic for clearance- looks like we might be missing a page. They are going to send over the full thing again. Reanna Tilley RN Reanna Tilley RNSelect Medical Specialty Hospital - Cleveland-FairhillQaavuc1314-84-88 08:09:08 Routing to , this does not appear to be a clear clearance by COLOR REPAIRER. Reanna Tilley RN [facility]FairhillWccdfi5684-12-87 17:08:10 Alma Alberto is a 63 year old male who was last seen by Dr. Niño on 12/04/23. I received a fax from [facility]. The fax is a nurse note pertaining to the patient in regards to clearance for surgery. I will upload into the patient's chart under external provider records. Gabby Stuart ZbigniewNewark HospitalZbkuxy5046-35-64 09:34:53 I just contacted the office in order to have them resend- I've provided them the fax number- waiting for this to come in. I still do not have a surgery date just yet for the patient- pending discussion with . Reanna Tilley RN Reanna Tilley [facility] HospitalPrzlbw8599-67-70 09:15:56 Copied from [facility] #[id number]. Topic: Clinical - Medical Advice >> Jan 13, 2024 9:14 AM Patient Policy Manager wrote: Pt is returning call requesting to speak with Nurse Forte in regards to the previous messages. Please advise Kamar CarrasquilloSelect Medical Specialty Hospital - [facility]-FairhillDlpdqh8180-84-05 16:01:38 I spoke to patient earlier and informed him that we have not received- he was unable to give me the phone number when I was talking to him earlier so I asked him to follow up with that office and I would call once received, It has not yet been received. Reanna Tilley RN [facility]FairhillPvilfi0015-24-08 14:31:44 Copied from [facility] #[id number]. Topic: Clinical - Medical Advice >> Jan 12, 2024 2:29 PM Patient Policy Manager wrote: Alma Alberto is a 63 year old male Pt is calling about the authorization forms that were sent over from their PCP office. Pt states that the office has sent the forms over to 's office twice now, and the pt still has not had any confirmation that the office received them . Please contact and advise. Elma MckeonSelect Medical Specialty Hospital - Cleveland-FairhillYariqo8118-16-71 08:39:53 Alma Alberto is a 63 year old male Pt is calling to check on the status if his Medical clearance has been received to schedule his surgery with Dr. Niño. Please advise. [phone] (home) [facility] [id number] 00:00:00 Kelvin PrasadArabella [facility]2024-05-17 15:54:46 Spoke to patient, he has an appointment on 01/03 as this is the earliest- will wait for clearance. Reanna Tilley RN Reanna Tilley RNSelect Medical Specialty Hospital - [facility]-FairhillIbghgi4327-55-64 12:54:13 Alma Alberto is a 63 year old male Pt called back for nurse Forte. He states he now has an appt with his pcp to authorize upcoming surgery with Dr. Niño. Please follow up with pt. [phone] (home) Felix Maharajrrama WilianSelect Medical Specialty [facility]FairhillTsbkpd3019-54-45 10:04:32 Spoke to patient, he states he has not seen his PCP yet for a clearance. He is going to call now and make an appointment. We discussed that we are aiming for 01/13/24 @ Reanna Tilley RN [facility]Teepfc5541-31-74 13:27:38 Pending PCP clearance and financial clearance- he will receive a call from me once we are done coordinating a find a date. Reanna Tilley RN Reanna Tilley [facility]Drdhjb3313-73-46 11:16:20 Copied from [facility] #[id number]. Topic: Clinical - Medical Advice >> December 11, 2023 11:15 AM Patient Policy Manager wrote: Pt is calling stating someone was going to call him to schedule surgery and no one has called Please advise Curly EvansSelect Medical Specialty [facility]hillCnjryu8713-66-50 00:18:00 Images from the original note were not included. DEMOGRAPHICS MR#: [id number] Name: Alma Alberto Insurance: Payor: [employer] MEDICARE / Plan: [employer] DUAL CORDINATION [facility] HMO SNP / Product Type: Medicare Adv HMO / Casebook status: Not applicable.. Inmate: No PRESENTATION Diagnosis: Basal cell carcinoma of the right nasal ala Recurrence: Yes Second Primary: No Date Presented: 10/12/23 for Initial visit IMAGING Radiology: PET TUMOR IMAGING SKULL TO THIGH on 10/16/2023 11:04 AM Clinical: Previously resected right nasal alar basal cell carcinoma Comparison: CT 08/20/2023 Technique: Routine imaging was obtained from vertex to mid thighs after administration of 8.9 mCi of F18 labeled FDG given via left forearm injection, with a fasting blood sugar of 101 mg/dL, and after an appropriate period of equilibration of quiet resting. Findings: With respect to the head neck, photopenia is seen at the site of known left posterior cerebellar encephalomalacia. There are multiple areas of abnormal tracer activity related to dental caries. I have annotated on a slice for which there is no reference number, abnormal tracer activity inferiorly and anteriorly in the left maxillary sinus. There was nonspecific nonenhancing opacification in this location on the CT scan, but it is possible for small nondestructive sinus malignancies to appear this way, and follow-up imaging is recommended. I cannot attribute this FDG activity to dentition. The enhancing structures seen on CT lateral to left masseter are not FDG avid, and are presumed to represent accessory salivary tissue. With respect to the external nose, in the location of the right nasal ala resection site, there is no abnormal metabolic activity. A small focus of activity in the nasal tip is annotated, also on a slice without reference number, and this bears direct examination. There is no clearly enhancing mass on the corresponding CT image. More inferiorly, there were no worrisome mucosal or edil lesions. Beyond the head neck, there was no worrisome pulmonary nodularity, and no metabolically active pulmonary, hilar or mediastinal lesions. Below the diaphragm, there was no worrisome visceral or edil disease. Incidental note are made of small metabolically active right axillary and inguinal nodes that are presumably reactive. IMPRESSION 1. Findings in the left maxillary sinus as outlined above. 2. Small focus of tracer activity in the nasal tip that bears direct examination. 3. No other convincing evidence for tumor. EXAM: CT SOFT TISSUE NECK W CONTRAST 08/20/23 HISTORY: 63 years-old Male; Provided indication: Head/neck cancer, staging extensive recurrent BCC of nose . TECHNIQUE: Contrast enhanced CT study of the neck was performed with images obtained from the skull base to the thoracic inlet. Coronal and sagittal reformats were obtained. COMPARISON: None. FINDINGS: The visualized parts of brain and orbits reveal no acute findings. Focal encephalomalacia of the medial left cerebellum is noted, could be due to remote ischemic infarction [series 4 image 56]. There were no mucosal or edil lesions. Post Mohs micrographic surgery [MMS] of the right nasal BCC with large defect in the right nasal alae, in and around image 29 series 2. There is nothing specifically concerning for local recurrence. Oval-shaped enhancing structures superficial to left masseter and anterior to the left parotid [series 2 images 27-32) likely represents accessory parotid tissue despite the enhancement. No other suspicious or enlarged cervical lymph nodes. There were no mucosal or edil lesions. IMPRESSION Postsurgical defect right nasal ala. PATHOLOGY Pathology: DERMATOPATHOLOGY 07/27/23 STAGING Recurrent BCC SUMMARY Alma Alberto is a 63 year old male with pmhx HIV+ who presented to ENT clinic on 10/09/23 as a referral from dermatology for evaluation of recurrent right nasal basal cell carcinoma. Patient is s/p multiple MMS, radiation in 2001 (55 shah in 22 fractions at [facility]) and in 2022 at [facility], and 6 month course of sonidegib completed in 01/2023. He noted a new lesion on the tip of his right nose which underwent biopsy with dermatology on 07/27/23. CT imaging on 08/20/23 shows right nasal post-operative changes but no overt evidence of disease or suspicious LAD. PET completed on 10/16/23. Here for repeat discussion. Since patient does not want to lose his nasal tip with surgery, he would like to consider further hedgehog inhibitor treatment, if that is an option. Will consider this and have surgery as a salvage plan if needed down the line. RECOMMENDATIONS - Resection and reconstruction was recommended but pt declining at this time, would prefer consideration of another round of hedgehog inhibitor to preserve nasal structure - Referral to medical oncology previously placed TRIALS Eligibility: N/A Will Link MD Department of Otolaryngology - Head and Neck Surgery PGY-5 [facility]-OTOLARYNGOLOGYSelect Medical [facility]ty [facility]-FairhillYgkama3122-68-79 23:59:00 Images from the original note were not included. DEMOGRAPHICS MR#: [id number] Name: Alma Alberto Insurance: Payor: [employer] MEDICARE / Plan: [employer] DUAL CORDINATION [employer] HMO SNP / Product Type: Medicare Adv HMO / Casebook status: Not applicable.. Inmate: No PRESENTATION Diagnosis: ICD-10-CM 1. Recurrent basal cell carcinoma (BCC) of nose C44.311 Recurrence: Yes Second Primary: No Date Presented: 10/12/23 for Initial visit IMAGING Radiology: EXAM: CT SOFT TISSUE NECK W CONTRAST 08/20/23 HISTORY: 63 years-old Male; Provided indication: Head/neck cancer, staging extensive recurrent BCC of nose . TECHNIQUE: Contrast enhanced CT study of the neck was performed with images obtained from the skull base to the thoracic inlet. Coronal and sagittal reformats were obtained. COMPARISON: None. FINDINGS: The visualized parts of brain and orbits reveal no acute findings. Focal encephalomalacia of the medial left cerebellum is noted, could be due to remote ischemic infarction [series 4 image 56]. There were no mucosal or edil lesions. Post Mohs micrographic surgery [MMS] of the right nasal BCC with large defect in the right nasal alae, in and around image 29 series 2. There is nothing specifically concerning for local recurrence. Oval-shaped enhancing structures superficial to left masseter and anterior to the left parotid [series 2 images 27-32) likely represents accessory parotid tissue despite the enhancement. No other suspicious or enlarged cervical lymph nodes. There were no mucosal or edil lesions. IMPRESSION Postsurgical defect right nasal ala. PATHOLOGY Pathology: DERMATOPATHOLOGY 07/27/23 STAGING Recurrent BCC SUMMARY Alma Alberto is a 63 year old male with pmhx HIV+ who presented to ENT clinic on 10/09/23 as a referral from dermatology for evaluation of recurrent right nasal basal cell carcinoma. Patient is s/p multiple MMS, radiation in 2001 (55 shah in 22 fractions at [facility]) and in 2022 at [facility], and 6 month course of sonidegib completed in 01/2023. He noted a new lesion on the tip of his right nose which underwent biopsy with dermatology on 07/27/23. CT imaging on 08/20/23 shows right nasal post-operative changes but no overt evidence of disease or suspicious LAD. Given the longstanding recurrence and extensive treatment history the patient has had for this lesion, will plan for PET scan on 10/16/23. Follow-up with ENT on 11/04/23. Will plan to discuss this patient again after PET scan and next ENT clinic visit. RECOMMENDATIONS - PET scan pending - Follow-up with ENT on 11/04/23 - Plan to re-present after imaging and next ENT visit TRIALS Eligibility: N/A [facility]2024-02-09 10:45:00 Patient left before we could call him back to get blood work drawn. [place] 192814-01-03 08:34:54 Herman Bang MD Simpson, Amanda, LVN I spoke to the patient and discussed all the possible options for treatment of his cancer and existing defect (see result note linked to most recent biopsy report). I also discussed the case with ENT colleagues and placed referral in [facility]. I have also ordered a CT neck for him. They requested a PET scan in addition but I was unable to order in it [facility]. Please let him know that I have discussed his case with ENT and they will be reaching out to him soon to schedule an appointment. Please also let him know that the radiology department should be contacting him to schedule him for his CT scan, as requested by ENT. This scan will help us all decide the best treatment for him and his cancer. Thanks. Herman [facility] Kelli Otero [place] [id number] 08:26:34 See telephone encounter dated 08/06/23 [facility] Kelli Otero [place] [id number] 13:53:13 Images from the original note were not included. Herman Bang MD Simpson, Amanda, LVN Spoke to patient and discussed treatment options. Discussed that there are 2 problems to address: First, treatment of his recurrent BCC, second, his significant nasal deformity caused by multiple treatments, especially XRT. Treatment options for his BCC include medical treatment (most likely with a hedgehog inhibitor) vs surgical treatment. Treatment of his nasal deformity may be via a prosthetic vs surgical reconstruction. However, reconstruction will be significantly impacted by the surrounding radiation changes and likely poor wound healing in the area. Reconstruction will require, at best an interpolation flap but likely a free flap. Referral placed to ENT to help with management of this patient and presentation at [facility]. [facility] Kelli Otero [facility]2023-12-28 12:45:40 Alma Alberto is a 62 year old male. Patient is calling back to speak with Dr. Bang. He states the phone got disconnected. [phone] (home) Please advise. [facility] Torie Duvall [facility]At[facility]2023-12-28 12:23:00 Addended by: BETI WELLS, HERMAN Schwarz on: 08/10/2023 11:28 PM Modules accepted: Orders [facility]2023-12-21 17:22:33 Lets discuss his case tomorrow in clinic. I would recommend referring to ENT to discuss treatment options at [facility]2023-12-21 16:24:32 Spoke with patient regarding scheduling a pre-op appointment with Dr Bang regarding BCC on nose. Patient stated that he does not want to go back to [place] - wants to only be seen in [place]. Informed patient that I will have to call him back once I discuss with Dr Kessler. [facility] Kelli Otero [facility]2023-12-21 16:16:20 Provider spoke with patient regarding results. [facility] Rosy Moreno [facility]2023-12-20 14:25:35 Alma Alberto is a 62 year old male Patient calling back to discuss biopsy results. Contact has been verify. Please advise [facility] Josephine Hurtado Apckbrent QuinnNovant Health Rowan Medical CenterNutpdi9461-59-74 09:00:00 Addended by: CHECO WELLS, RUTH Urbano on: 09/10/2023 01:27 PM Modules accepted: Orders [facility]2023-08-22 10:49:21 Scheduled. Karen CastroSelect Medical Specialty [facility]hillBxncrj1693-66-24 09:20:13 Alma Alberto is a 62 year old male. Patient is calling to schedule an appointment, preferably April. Patient stated that he accidentally cancelled his 04/21 appointment through text message. Please advise. [phone] ([place]) Thank you. Torie ChoHolzer Health SystemVgnslb3949-71-34 10:56:22 Routing to provider [facility] for review/recommendations. Jil Kline RNSelect Medical Specialty Hospital - [facility]-FairhillSsiuqh9606-48-37 16:18:03 Alma Alberto is a 62 year old male Pt is calling to notify provider about another medication he is taking, Pt states, he takes Venlafaxine ER 150 mg, twice a day, Please advise Shira WhiteSelect Medical Specialty Hospital [facility]hillJxljzq3581-37-81 11:45:00 Images from the original note were not included. Venipuncture collection performed by clean technique on the right anticubitus. Total of 1 attempts were made. Slight pressure and a bandage/dressing were applied to the site(s). The patient experienced no complications. The following specimens were processed according to instructions and sent to [facility] laboratories per lab order on 03/18/2023 : LT BLUE SST 1 RED LAV 2 PPT DK GREEN (LiHep) DK GREEN (SodH) SHAH DK BLUE (K2) DK BLUE (S) ACD Blood Culture NIPT/NTD Patient has been identified by and name and was provided with cup, antiseptic towelette, and clean catch instructions. 1 urine specimen(s) sent. Unpreserved 1 Urine Culture Aptima tube Other urine [facility]
[2024-10-03] MEDS ORDERED: ONDANSETRON 4 MG/2 ML VIAL ONE (23:26)
[2024-10-03] MEDS ORDERED: MORPHINE 4 MG/ML SYR ONE (23:27)
[2024-10-03] MEDS ORDERED: AMPICILLIN/SULBACTAM 3GM/VIAL ONE (23:27)
[2024-10-03] MEDS ORDERED: NA CHLORIDE 0.9% 100 ML ONE (23:27)
[2024-10-03] MEDS ORDERED: LIDOCAINE 1% 20 ML MDV ONE (23:27)
[2024-10-03] MEDS ORDERED: NA CHLORIDE 0.9% 1,000 ML ONE (23:28)
--- NOTE | 2024-10-04 01:17 | RAD REPORT ---
EXAM DESCRIPTION: Head C Spine Mpr Wo Con (accession [id number]), Facial Bones W/ Mpr (accession 1 [id number]) CLINICAL HISTORY: TRAUMA COMPARISON: None available TECHNIQUE: Axial CT of the head obtained from the skull apex to the skull base without contrast. . Ax ial CT images of the facial bones obtained without contrast. Axial CT images of the cervical spine obtained without contrast. This exam was performed according to our departmental dose-optimization pr ogram, which includes automated exposure control, adjustment of the mA and/or kV according to patient size and/or use of iterative reconstruction technique. FINDINGS: Head CT: No acute intracranial hemorrhage identified. No mass, mass effect, shift of the midline, abnormal ext ra-axial fluid collection or CT evidence of acute ischemic change identified. The ventricular system and sulcal spaces are mildly enlarged compatible with mild cerebral atrophy. Scattered areas of hypodensity throughout the supratentorial white matter are nonspecific and may be related to chronic small vessel ischemic change. Encephalomalacia versus asymmetric atrophy of the left cerebell um. No skull fracture identified. Atherosclerotic calcification of the intracranial internal carotid ar teries. Facial Bone CT: Orbits: Orbital floors and waddell are intact. Intraorbital contents: The globes are intact. Extraocular muscles are symmetric. No intraconal fat st randing. Nasal bones: Intact. Maxilla: The maxillary hard palate is intact. Maxillary antral waddell are intact. Sinuses: Mild mucosal thickening of the left maxillary sinus. Zygomatic processes: Intact Pterygoid plates: Intact Mandible: Intact. No mandibular condylar dislocation. Multiple dental caries. Skull base/cervical spine: Visualized portions of the skull base and cervical spine are intact. Visua lized mastoid air cells are well aerated. Subcutaneous soft tissues: Mild contusion/laceration is a left facial soft tissues. Neck soft tissues: No definite abnormality involving the nasopharynx, oropharynx, or hypopharynx. Fos sa of Rosenmuller are clear. Parotid glands and submandibular glands are unremarkable. No cervical lymphadenopathy. Cervical CT : Straightening of the cervical lordosis may be secondary to patient positioning. The atlantoaxial, a tlantodental, and occipitoatlantal intervals are preserved. No fracture identified. Vertebral body height preserved. Prevertebral soft tissues are unremarkable. Mild multilevel loss of intervertebral disc height with endplate spondylosis, facet arthropathy, and uncovertebral spurring. Posterior disc osteophyte complex at multiple levels mildly encroach upon the anterior spinal canal. Mild neural foraminal narrowing. Visualized thyroid is unremarkable. No cervical lymphadenopathy. No pneumothorax in the visualized lung apices. IMPRESSION: 1. No acute intracranial abnormality by CT criteria. 2. No acute facial bone fracture. 3. No acute fracture or subluxation of the cervical spine. Electronically signed by: Jaylen Mejia DO 10/04/2024 12:51 AM [facility] [id number] Due to temporary technical issues with the PACS/[employer] reporting system, reports are being rachel d by the in-house radiologist without review as a courtesy to ensure prompt reporting the interpreting radiologist is fully responsible for the content of the report. Transcribed Date/Time: 10/04/2024 1:17 AM
--- NOTE | 2024-10-04 01:18 | RAD REPORT ---
EXAM DESCRIPTION: Chest Abd Pelvis Wo Con CLINICAL HISTORY: TRAUMA COMPARISON: None Available. TECHNIQUE: CT of the chest, abdomen and pelvis performed without IV contrast. Evaluation of the solid organs and vasculature is suboptimal due to lack of IV contrast. This exam was performed according to our departmental dose-optimization program, which includes automated exposure control, adjustment of the mA and/or kV according to patient size and/or use of iterative reconstruction technique. FINDINGS: Chest: Thyroid: No abnormalities of the visualized thyroid. Great Vessels: Great vessels have normal anatomic configuration. Thoracic Aorta: Atherosclerotic calcification of thoracic aorta. Pulmonary arteries: The main pulmonary artery is not dilated. Heart: Coronary artery atherosclerosis. Lymph Nodes: No enlarged mediastinal lymph nodes identified. Esophagus: No abnormalities of the esophagus identified Other: No additional findings. Lungs: No airspace opacities identified. Pleura: No pleural effusion or pneumothorax. Trachea/Airways: No abnormalities of the visualized trachea or airways. Abdomen: Liver: The liver has normal size and density. Small hypodensity in the left hepatic lobe may repres ent a cyst. Gallbladder: No calcified gallstones. Spleen, Pancreas, and Adrenal Glands: The spleen, pancreas, and adrenal glands are unremarkable. Kidneys: The kidneys have normal size and contour without evidence of solid mass or hydronephrosis. Punctate bilateral nonobstructing nephrolithiasis. Vasculature: Aortoiliac atherosclerosis. IVC is unremarkable. Stomach: The stomach and duodenum have normal course. Other: No free intraperitoneal air. No free fluid or lymphadenopathy. [Minimal contusion in the r ight anterior abdominal wall subcutaneous soft tissues. Pelvis: Bladder: Urinary bladder is unremarkable. Bowel: No dilated loops of large or small bowel. Mild wall thickening of the descending and sigmoid colon. Appendix: Normal appendix. Pelvis: Tiny fat-containing left inguinal hernia. Enlarged prostate. Bones: Multilevel endplate spondylosis and facet arthropathy. Osteoarthritic change of the hips. Oste oarthritic change of the shoulders. IMPRESSION: 1. Mild contusion in the right anterior abdominal wall soft tissues. Otherwise no traumatic abnorma lity identified. 2. Mild wall thickening of the descending and sigmoid colon. These findings could be seen with nons pecific colitis. 3. Punctate bilateral nonobstructing nephrolithiasis. 4. Enlarged prostate. 5. Coronary artery atherosclerosis. Electronically signed by: Jaylen Mejia DO 10/04/2024 12:46 AM [facility] [id number] Due to temporary technical issues with the PACS/[employer] reporting system, reports are being rachel d by the in-house radiologist without review as a courtesy to ensure prompt reporting the interpreting radiologist is fully responsible for the content of the report. Transcribed Date/Time: 10/04/2024 1:18 AM
--- NOTE | 2024-10-04 01:39 | ER ---
Nurse's Notes [facility] Name: Byron Alberto Jr Age: 64 yrs Sex: Male : 1960 Arrival Date: 10/03/2024 Time: 21:42 Bed 12 Private MD: Diagnosis: Bitten by dog;Multiple lacerations- left cheek, right bicep, right forearm;Multiple puncture wounds- right cheek, right forearm, abdomen Presentation: 10/03 21:43 Chief complaint: Patient states: he was bitten by a dog in the face and arm when trying ap3 to visit an apartment tenent. patient currently rates his pain as a 7/10 on the pain scale. Coronavirus screen: At this time, the client does not indicate any symptoms associated with coronavirus-19. Ebola Screen: No symptoms or risks identified at this time. Initial Sepsis Screen: Does the patient meet any 2 criteria? HR > 90 bpm. No. Patient's initial sepsis screen is negative. Does the patient have a suspected source of infection? No. Patient's initial sepsis screen is negative. Risk Assessment: Do you want to hurt yourself or someone else? Patient reports no desire to harm self or others. Onset of symptoms was October 03, 2024. 21:43 Method Of Arrival: EMS: [facility] ap3 21:43 Acuity: RENNY 3 ap3 21:48 Note patient states PD was at the residence. Patient also reports that he is up to date ap3 on his tetanus. Triage Assessment: 21:46 General: Appears in no apparent distress. Behavior is calm, cooperative, appropriate ap3 for age. Pain: Complains of pain in face and right arm Pain currently is 7 out of 10 on a pain scale. Neuro: Level of Consciousness is awake, alert, obeys commands. Cardiovascular: Patient's skin is warm and dry. Respiratory: Airway is patent Respiratory effort is even, unlabored, Respiratory pattern is regular, symmetrical. Derm: Wound noted face and right arm. Historical: - Allergies: 21:46 No Known Allergies; ap3 - PMHx: 21:46 AIDS; HIV; tremors; ap3 - Immunization history:: Last tetanus immunization: up to date. - Infectious Disease History:: Denies. - Social history:: Smoking status: Patient denies any tobacco usage or history of. Screenin:47 [facility] ED Fall Risk Assessment (Adult) History of falling in the last 3 months, ap3 including since admission No falls in past 3 months (0 pts) Confusion or Disorientation No (0 pts) Intoxicated or Sedated No (0 pts) Impaired Gait No (0 pts) Mobility Assist Device Used No (0 pt) Altered Elimination No (0 pt) Score/Fall Risk Level 0 - 2 = Low Risk Oriented to surroundings, Maintained a safe environment, Educated pt \T\ family on fall prevention, incl call for assistance when getting out of bed, Assessed \T\ reinforced patient's understanding of fall precautions, Hourly rounding (assess needs \T\ fall precautionary measures) done, Used ambulatory aids as needed (educated on \T\ assisted with). Abuse screen: Denies threats or abuse. Nutritional screening: No deficits noted. Tuberculosis screening: No symptoms or risk factors identified. Assessment: 23:25 Reassessment: Patient and/or family updated on plan of care and expected duration. Pain ha1 level reassessed. Patient is alert, oriented x 3, equal unlabored respirations, skin warm/dry/pink. 10/04 01:00 Reassessment: Patient and/or family updated on plan of care and expected duration. Pain ha1 level reassessed. Patient is alert, oriented x 3, equal unlabored respirations, skin warm/dry/pink. 02:00 Reassessment: completed wound care. wound clean and dry. No bleeding. ha1 02:17 Reassessment: Patient and/or family updated on plan of care and expected duration. Pain ha1 level reassessed. Patient is alert, oriented x 3, equal unlabored respirations, skin warm/dry/pink. Patient states feeling better. Patient states symptoms have improved. Vital Signs: 10/03 21:43 BP 154 / 100; Pulse 125; Resp 18; Temp 97.4(TE); Pulse Ox 100% on R/A; Weight 69.85 kg; ap3 Height 5 ft. 0 in. ; Pain 7/10; 23:25 BP 121 / 79; Pulse 102; Resp 20 S; Pulse Ox 99% on R/A; ha1 10/04 01:00 BP 129 / 74; Pulse 85; Resp 17 S; Pulse Ox 98% on R/A; ha1 02:10 BP 131 / 71; Pulse 74; Resp 17 S; Pulse Ox 98% on R/A; ha1 10/03 21:43 Body Mass Index 30.08 (69.85 kg, 152.4 cm) ap3 02 21:43 Pain Scale: Adult ap3 ED Course: 10/03 21:43 Patient arrived in ED. ap3 21:43 Patient has correct armband on for positive identification. Placed in gown. Bed in low ha1 position. Call light in reach. Side rails up X 1. 21:46 Triage completed. ap3 21:47 Arm band placed on right wrist. ap3 22:06 Minerva Terrazas PA-C is PHCP. sb4 22:06 Tonio Montoya MD is Attending Physician. sb4 22:30 Missed attempt(s): 20 gauge in left antecubital area. Bleeding controlled, band aid td1 applied, catheter tip intact. 22:32 Inserted saline lock: 20 gauge in left antecubital area, using aseptic technique. td1 23:26 Head C Spine MPR Wo Con CT In Process Unspecified. EDMS 23:26 Chest Abdomen Pelvis Wo Con CT In Process Unspecified. EDMS 23:26 Facial Bones W/O Con CT In Process Unspecified. EDMS 10/04 02:20 Provided Education on: wound care . ha1 02:20 No provider procedures requiring assistance completed. IV discontinued, intact, ha1 bleeding controlled, No redness/swelling at site. Pressure dressing applied. Administered Medications: 10/02 23:00 Drug: NS 0.9% IV 1000 ml IV at 1 bolus Per protocol; to be given as a bolus over 60 ha1 minutes Route: IV; Rate: 1 bolus; Site: left antecubital; 10/04 02:32 Follow up: Response: No adverse reaction; IV Status: Completed infusion; IV Intake: ha1 1000ml 10/02 23:02 Drug: morphine IVP or IV 4 mg IVP once over 4 mins Route: IVP; Infused Over: 4 mins; ha1 Site: left antecubital; 10/03 23:25 Follow up: Response: No adverse reaction; Pain is decreased; RASS: Alert and Calm (0) ha1 23:00 Drug: Ondansetron IVP 4 mg IVP once; over 2 minutes Route: IVP; Site: left antecubital; ha1 23:25 Follow up: Response: No adverse reaction ha1 23:05 Drug: Ampicillin-Sulbactam Sodium IVPB 3 grams IVPB once over 30 mins; (mix in 100 mL ha1 NS) Route: IVPB; Infused Over: 30 mins; Site: left antecubital; 10/04 00:10 Follow up: Response: No adverse reaction; IV Status: Completed infusion; IV Intake: ha1 100ml 01:16 Drug: Lidocaine Infiltration (1 %) 20 ml 20 ml Infiltration once; to bedside {Note: ha1 administered by care provider .} Volume: 20 ml; Route: Infiltration; 01:30 Follow up: Response: No adverse reaction ha1 02:10 Drug: Hydrocodone-Acetaminophen PO (7.5 mg-325 mg) 1 tabs PO once Route: PO; ha1 02:30 Follow up: Response: No adverse reaction; Pain is decreased; RASS: Alert and Calm (0) ha1 Medication: 02:22 VIS not applicable for this client. ha1 Intake: 00:10 IV: 100ml; Total: 100ml. ha1 02:32 IV: 1000ml; Total: 1100ml. ha1 Outcome: 01:38 Discharge ordered by . sb4 02:20 Discharged to home ambulatory, ha1 02:20 Condition: stable 02:20 Discharge instructions given to patient, Instructed on discharge instructions, follow up and referral plans. medication usage, Demonstrated understanding of instructions, follow-up care, medications, Prescriptions given X 3, 02:33 Patient left the ED. ha1 Signatures: Dispatcher [employer] EDKelli Huizar RN RN ap3 Jasmin Morillo RN RN ha1 Minerva Terrazas PA-C PABarbara portillo4 Papito Valdez td1
--- NOTE | 2024-10-04 01:39 | EDPHYS ---
Physician Documentation [facility] Name: Byron Alberto Jr Age: 64 yrs Sex: Male : 1960 Arrival Date: 10/03/2024 Time: 21:42 Bed 12 Private MD: ED Physician Tonio Montoya HPI: 10/03 22:33 This 64 yrs old Male presents to ER via EMS with complaints of Dog Bite. sb4 22:33 The patient was bitten on the face, scalp, abdomen and right arm, by a dog, in an sb4 unprovoked manner, at [facility]. Onset: The symptoms/episode began/occurred just prior to arrival. Animal information: Animal's vaccinations are not up to date. The animal is known and can be quarantined, Animal control has been notified. Secondary to the bite the patient reports multiple lacerations, that are deep, multiple puncture wounds, that are deep. Historical: - Allergies: 21:46 No Known Allergies; ap3 - PMHx: 21:46 AIDS; HIV; tremors; ap3 - Immunization history:: Last tetanus immunization: up to date. - Infectious Disease History:: Denies. - Social history:: Smoking status: Patient denies any tobacco usage or history of. ROS: 22:34 Constitutional: Negative for fever, chills, and weight loss, sb4 22:34 Skin: Positive for laceration(s), puncture, 22:34 All other systems are negative, Exam: 23:07 Constitutional: The patient appears in no acute distress, alert, awake, sb4 23:07 Skin: injury, laceration(s), the wound is approximately 3 cm(s), with a depth of .5 cm(s), of the left cheek, the second wound is approximately 3 cm(s), with a depth of 1 cm(s), of the right bicep, the third wound is approximately 2 cm(s), with a depth of .5 cm(s), of the right bicep, puncture(s), that are superficial, of the abdomen and scalp and right arm, 23:08 Eyes: Extra-ocular motions intact. Periorbital areas with no swelling, redness, or sb4 edema. ENT: Mucous membranes moist. Cardiovascular: Regular rate and rhythm with a normal S1 and S2. Respiratory: No increased work of breathing, no retractions or nasal flaring. Vital Signs: 21:43 BP 154 / 100; Pulse 125; Resp 18; Temp 97.4(TE); Pulse Ox 100% on R/A; Weight 69.85 kg; ap3 Height 5 ft. 0 in. ; Pain 7/10; 23:25 BP 121 / 79; Pulse 102; Resp 20 S; Pulse Ox 99% on R/A; ha1 10/04 01:00 BP 129 / 74; Pulse 85; Resp 17 S; Pulse Ox 98% on R/A; ha1 02:10 BP 131 / 71; Pulse 74; Resp 17 S; Pulse Ox 98% on R/A; ha1 10/03 21:43 Body Mass Index 30.08 (69.85 kg, 152.4 cm) ap3 10/03 21:43 Pain Scale: Adult ap3 Laceration: 01:34 Wound Repair of 4cm ( 1.6in ) subcutaneous laceration to left cheek. Distal sb4 neuro/vascular/tendon intact. Anesthesia: Local anesthetic administered with 3 mls of 1% lidocaine. Wound prep: Simple cleansing with hibiclenz, Wound irrigation with saline by me. Skin closed with 3 5-0 Prolene using simple sutures and sterile technique. Dressed with Bacitracin. Patient tolerated well. 01:34 Wound Repair of 5cm ( 2.0in ) subcutaneous laceration to right bicep. Distal sb4 neuro/vascular/tendon intact. Anesthesia: Wound infiltrated with 7 mls of 1% lidocaine. Wound prep: Simple cleansing with betadine by me, Wound irrigation with saline by me. Skin closed with 3 4-0 Prolene using simple sutures and sterile technique. Dressed with non-adherent dressing. Patient tolerated well. 01:35 Wound Repair of 3cm ( 1.2in ) subcutaneous laceration to dorsal aspect of right sb4 forearm. Irregularly shaped.. Distal neuro/vascular/tendon intact. Anesthesia: Local anesthetic administered with 4 mls of 1% lidocaine. Wound prep: Simple cleansing with hibiclenz by ga, Wound irrigation with saline by me. Skin closed with 2 4-0 Prolene using simple sutures and sterile technique. Dressed with non-adherent dressing. Patient tolerated well. 01:36 Wound Repair of 2cm ( 0.8in ) subcutaneous laceration to palmar aspect of right sb4 forearm. Distal neuro/vascular/tendon intact. Anesthesia: Local anesthetic administered with 3 mls of 1% lidocaine. Wound prep: Simple cleansing with betadine with hibiclenz by me, Wound irrigation with saline by me. Skin closed with 1 4-0 Prolene using simple sutures and sterile technique. Dressed with non-adherent dressing. Patient tolerated well. MDM: 10/03 21:49 Medical Screening Exam initiated sp3 10/04 01:36 Rabies Status: Rabies immunization is not indicated. Data reviewed: vital signs, nurses sb4 notes, EMS record, radiologic studies, I have discussed the patient's presentation/case with the attending Emergency Department Physician; and as a result, I will discharge patient. Counseling: I had a detailed discussion with the patient and/or guardian regarding the historical points, exam findings, and any diagnostic results supporting the discharge/admit diagnosis, radiology results, the need for outpatient follow up, for suture removal in 1 week, to return to the emergency department if symptoms worsen or persist or if there are any questions or concerns that arise at home. 10/03 22:07 Order name: Head C Spine MPR Wo Con CT sb4 10/03 22:07 Order name: Chest Abdomen Pelvis Wo Con CT sb4 10/03 23:14 Order name: Facial Bones W/O Con CT sb4 10/03 22:07 Order name: IV Start; Complete Time: 22:46 sb4 10/03 22:44 Order name: Wound Care; Complete Time: 02:16 sb4 Administered Medications: 10/02 23:00 Drug: NS 0.9% IV 1000 ml IV at 1 bolus Per protocol; to be given as a bolus over 60 ha1 minutes Route: IV; Rate: 1 bolus; Site: left antecubital; 10/04 02:32 Follow up: Response: No adverse reaction; IV Status: Completed infusion; IV Intake: ha1 1000ml 10/02 23:02 Drug: morphine IVP or IV 4 mg IVP once over 4 mins Route: IVP; Infused Over: 4 mins; ha1 Site: left antecubital; 10/03 23:25 Follow up: Response: No adverse reaction; Pain is decreased; RASS: Alert and Calm (0) ha1 23:00 Drug: Ondansetron IVP 4 mg IVP once; over 2 minutes Route: IVP; Site: left antecubital; ha1 23:25 Follow up: Response: No adverse reaction ha1 23:05 Drug: Ampicillin-Sulbactam Sodium IVPB 3 grams IVPB once over 30 mins; (mix in 100 mL ha1 NS) Route: IVPB; Infused Over: 30 mins; Site: left antecubital; 10/04 00:10 Follow up: Response: No adverse reaction; IV Status: Completed infusion; IV Intake: ha1 100ml 01:16 Drug: Lidocaine Infiltration (1 %) 20 ml 20 ml Infiltration once; to bedside {Note: ha1 administered by care provider .} Volume: 20 ml; Route: Infiltration; 01:30 Follow up: Response: No adverse reaction ha1 02:10 Drug: Hydrocodone-Acetaminophen PO (7.5 mg-325 mg) 1 tabs PO once Route: PO; ha1 02:30 Follow up: Response: No adverse reaction; Pain is decreased; RASS: Alert and Calm (0) ha1 Disposition Summary: 10/04/24 01:38 Discharge Ordered Notes: Location: Home sb4 Problem: new sb4 Symptoms: have improved sb4 Condition: Stable sb4 Diagnosis - Bitten by dog sb4 - Multiple lacerations- left cheek, right bicep, right forearm sb4 - Multiple puncture wounds- right cheek, right forearm, abdomen sb4 Followup: sb4 - With: Private Physician - When: 7 - 10 days - Reason: Staple/Suture removal Discharge Instructions: - Discharge Summary Sheet sb4 - Animal Bite, Adult, [id number] sb4 - Laceration Care, Adult, [id number] sb4 - Puncture Wound, [id number] sb4 Forms: - Antibiotic Education sb4 - Prescription Opioid Use sb4 - Patient Portal Instructions sb4 - Leadership Thank You Letter sb4 Prescriptions: - Augmentin 875-125 mg Oral Tablet - take 1 tablet ORAL route every 12 hours for 10 days; 20 tablet; Refills: 0, sb4 Product Selection Permitted - Ibuprofen 800 mg Oral Tablet - take 1 tablet ORAL route every 8 hours As needed take with food; 30 tablet; sb4 Refills: 0, Product Selection Permitted - Tramadol 50 mg Oral Tablet - take 1 tablet ORAL route every 8 hours as needed; 12 tablet; Refills: 0, sb4 Product Selection Permitted Signatures: Dispatcher [employer] EDNJ Kelli Conklin RN RN ap3 Tonio Montoya MD MD sp3 Jasmin Morillo RN RN ha1 Minerva Terrazas, ALIDA PABarbara sb4 Corrections: (The following items were deleted from the chart) 10/03 22: 22:08 Head C Spine MPR Wo Con+CT.RAD.BRZ ordered. EDMS EDMS 22:08 Chest Abdomen Pelvis Wo Con+CT.RAD.BRZ ordered. EDNJ EDNJ 10/04 01:36 10/03 23:07 Skin: injury, laceration(s), the wound is approximately 3 cm(s), with a sb4 depth of .5 cm(s), of the left cheek, the second wound is approximately 3 cm(s), with a depth of 1 cm(s), of the right bicep, the third wound is approximately 2 cm(s), with a depth of .5 cm(s), of the right bicep, puncture(s), that are superficial, of the scalp and abdomen, sb4
[2024-10-04] MEDS ORDERED: HYDROCODONE/APAP 7.5/325 MG TAB ONE (01:57)
[2024-10-04 02:37] VITALS: TEMP 97.4
[2024-10-04 02:41] VITALS: O2SAT 98
[2024-10-04 02:43] VITALS: BP 131/71
== END 2024-10-04 02:33 | disposition home or self-care (01) ==
LOC: ER 21:42
DX: S01.412A Laceration without foreign body of left cheek and temporomandibular area, initial encounter (principal); S46.221A Laceration of muscle, fascia and tendon of other parts of biceps, right arm, initial encounter; S51.811A Laceration without foreign body of right forearm, initial encounter; S01.431A Puncture wound without foreign body of right cheek and temporomandibular area, initial encounter; S31.139A Puncture wound of abdominal wall without foreign body, unspecified quadrant without penetration into peritoneal cavity, initial encounter; S51.831A Puncture wound without foreign body of right forearm, initial encounter; W54.0XXA Bitten by dog, initial encounter; Z21 Asymptomatic human immunodeficiency virus [HIV] infection status
CPT/HCPCS: 70450; 71250; 72125; 70486; 76377; 74176; 12013; 12004; J2003; J0295; J2405; J7030; 12031; 12032; 12052; 96361; 96365; 96375; 99284